=== PATIENT | male | born 1945 | race African-American/Black ===

== ENCOUNTER 2017-03-13 15:18 | Emergency (ER) | payer MEDICARE, OTHER ==
[~2017-03-13] VITALS: Ht 182.9 cm; Wt 83.0 kg
[~2017-03-13 15:18] MED LIST: ALLO100T PO; ALPR.5 PO; AMLO5 PO; BETH25 PO; BUSP5 PO; FURO20TA PO; LACT PO; LEVO.025 PO; MIRTA15 PO; OXCA600 PO; OXYB5TAB PO; POTA-243 PO; PROM1SUP12 PR; PROM25TA5 PO; PROS5TAB2 PO; PROT40TA PO; SERT-129 PO; TERA5CAP3 PO; ZOFR4TAB3 SL
[2017-03-13] MEDS ORDERED: SODIUM CHLOR 0.9% 1000 ML INJ 1,000 ML IV ONE ×2 (15:30)
[2017-03-13 15:45] VITALS: BP 119/88; PULSE 60; RESP 18; TEMP 98; O2SAT 93
--- NOTE | 2017-03-13 15:55 | RADRPT ---
EXAM DATE/TIME: 03/13/2017 15:25 [facility] COMPARISON: CT BRAIN W/O CONTRAST, July 13, 2014, 15:22. INDICATIONS : Fell off chair hit head laceration middle of head. RADIATION DOSE: 56.35 CTDIvol (mGy) MEDICAL HISTORY : Dementia. Seizures. Cardiovascular diseaseHypertension SURGICAL HISTORY : None. ENCOUNTER: Initial ACUITY: 1 day PAIN SCALE: 7/10 LOCATION: cranial TECHNIQUE: Multiple contiguous axial images were obtained of the head. Using automated exposure control and adj ustment of the mA and/or kV according to patient size, radiation dose was kept as low as reasonably a chievable to obtain optimal diagnostic quality images. DICOM format image data is available electro nically for review and comparison. FINDINGS: CEREBRUM: Diffuse moderate atrophic changes noted with sulcal and ventricular prominence. Periventricular white matter lucencies are present and advanced consistent chronic small vessel ischemic change. No eviden ce of midline shift, mass lesion, hemorrhage or acute infarction. No extra-axial fluid collections a re seen. POSTERIOR FOSSA: The cerebellum and brainstem are intact. The 4th ventricle is midline. The cerebellopontine angle i s unremarkable. The basilar artery remains prominent and tortuous. EXTRACRANIAL: The visualized portion of the orbits is intact. SKULL: The calvaria is intact. No evidence of skull fracture. CONCLUSION: 1. No acute hemorrhage or mass effect. 2. Atrophy and chronic small vessel ischemic changes. Vj Fraga MD on March 13, 2017 at 15:51 Board Certified Radiologist. This report was verified electronically.
[2017-03-13 15:57] VITALS: BP 114/77; PULSE 66; RESP 18; TEMP 98; O2SAT 94
[2017-03-13] MEDS ORDERED: ONDANSETRON HCL 4 MG/2 ML VIAL IV ONE (16:00)
--- NOTE | 2017-03-13 16:12 | RADRPT ---
EXAM DATE/TIME: 03/13/2017 15:29 [facility] COMPARISON: No previous studies available for comparison. INDICATIONS : Fell out of chair laceration middle of head RADIATION DOSE: 26.97 CTDIvol (mGy) MEDICAL HISTORY : Dementia. Seizures. Cardiovascular disease. Hypertension SURGICAL HISTORY : None. ENCOUNTER: Initial ACUITY: 1 day PAIN SCALE: 7/10 LOCATION: neck TECHNIQUE: Volumetric scanning of the cervical spine was performed. Multiplanar reconstructions i n the sagittal, coronal and oblique axial planes were performed. Using automated exposure control a nd adjustment of the mA and/or kV according to patient size, radiation dose was kept as low as reason ably achievable to obtain optimal diagnostic quality images. DICOM format image data is available e lectronically for review and comparison. FINDINGS: The sagittal reconstructions demonstrate normal alignment and normal prevertebral soft tissues. The d ens is intact and there is a normal atlantoaxial relationship. Degenerative disc changes are present greatest at the C5-6 and C6-7 levels. Degenerative changes are also noted in the atlantoaxial joint. The axial images demonstrate that the vertebral bodies and posterior elements are intact. The soft ti ssues are within normal limits. There is no evidence of acute fracture or malalignment. CONCLUSION: Negative trauma CT. Vj Fraga MD on March 13, 2017 at 16:08 Board Certified Radiologist. This report was verified electronically.
[2017-03-13 16:14] LABS: AUTOMATED NEUTROPHIL # 8.5 TH/MM3 (1.8-7.7); BASOPHIL # 0.1 TH/MM3 (0-0.2); BASOPHIL % 0.6 % (0.0-2.0); EOSINOPHIL # 0.2 TH/MM3 (0-0.4); EOSINOPHIL % 1.1 % (0.0-4.0); HEMATOCRIT 40.4 % (39.0-51.0); HEMO FLAGS AUTO DIFF; LYMPHOCYTE # 5.4 TH/MM3 (1.0-4.8); MEAN CELL VOLUME 88.2 FL (80.0-100.0); MEAN CORPUSCULAR HEMOGLOBIN 29.4 PG (27.0-34.0); MEAN CORPUSCULAR HGB CONC 33.4 % (32.0-36.0); MONO % 5.2 % (0.0-8.0); NEUT % 57.1 % (16.0-70.0); PLATELET COUNT 259 TH/MM3 (150-450); RED BLOOD COUNT 4.58 MIL/MM3 (4.50-5.90); WHITE BLOOD COUNT 14.9 TH/MM3 (4.0-11.0)
[2017-03-13 16:17] LABS: APTT (PATIENT) 22.5 SEC (24.3-30.1); PROTHROMBIN TIME - PATIENT 10.7 SEC (9.8-11.6)
[2017-03-13 16:22] LABS: ANION GAP 9 MEQ/L (5-15); AST (GOT) 9 U/L (15-37); BICARBONATE 24.8 MEQ/L (21.0-32.0); BLOOD UREA NITROGEN 9 MG/DL (7-18); CHLORIDE 106 MEQ/L (98-107); GLOMERULAR FILTRATION RATE 73 ML/MIN (>89); POTASSIUM 3.9 MEQ/L (3.5-5.1); SODIUM (NA) 140 MEQ/L (136-145)
--- NOTE | 2017-03-13 16:22 | RADRPT ---
EXAM DATE/TIME: 03/13/2017 15:55 [facility] COMPARISON: CHEST SINGLE AP, July 31, 2014, 9:13. INDICATIONS : Syncope. Patient fell and hit his head today. MEDICAL HISTORY : Dementia. Seizures. Cardiovascular disease. Hypertension SURGICAL HISTORY : None. ENCOUNTER: Initial ACUITY: 1 day PAIN SCORE: 0/10 LOCATION: Bilateral chest FINDINGS: A single view of the chest demonstrates the lungs to be symmetrically aerated without evidence of mas s, infiltrate or effusion. The cardiomediastinal contours are unremarkable. Osseous structures are intact. CONCLUSION: 1. No acute cardiopulmonary findings. Santhosh Delarosa MD on March 13, 2017 at 16:20 Board Certified Radiologist. This report was verified electronically.
[2017-03-13 16:24] LABS: ALT (GPT) 13 U/L (12-78)
[2017-03-13 16:27] LABS: ALKALINE PHOSPHATASE 58 U/L (45-117); TOTAL BILIRUBIN ADULT 0.2 MG/DL (0.2-1.0)
[2017-03-13] MEDS ORDERED: MORPHINE SULFATE 4 MG/ML INJ IV PUSH ONE (16:30)
--- NOTE | 2017-03-13 16:39 | PD ---
Physical Exam Date Seen by Provider: Mar 13, 2017 Time Seen by Provider: 16:38 Data Data Last Documented VS Vital Signs Date Time Temp Pulse Resp B/P (MAP) Pulse Ox O2 Delivery O2 Flow Rate FiO2 03/13/17 17:00 68 18 155/92 (113) 97 Room Air 03/13/17 15:[address] Brain W/O Iv Contrast(Rout) (03/13/17 ) Complete Blood Count With Diff (03/13/17 15:21) Comprehensive Metabolic Panel (03/13/17 15:21) Prothrombin Time / Inr (Pt) (03/13/17 15:21) Act Partial Throm Time (Ptt) (03/13/17 15:21) Lactic Acid Sepsis Protocol (03/13/17 15:21) Magnesium (Mg) (03/13/17 15:21) Lipase (03/13/17 15:21) Troponin I (03/13/17 15:) Urinalysis - C+S If Indicated (03/13/17 15:21) Blood Culture (03/13/17 15:21) Chest, Single Ap (03/13/17 15:21) Blood Glucose (03/13/17 15:21) Ecg Monitoring (03/13/17 15:21) Iv Access Insert/Monitor (03/13/17:) Oximetry (03/13/17 15:21) Oxygen Administration (03/13/17 15:21) Sodium Chlor 0.9% 1000 Ml Inj (Ns 1000 M (03/13/17 15:30) Sodium Chlor 0.9% 1000 Ml Inj (Ns 1000 M (03/13/17 15:30) Ct Cerv Spine W/O Contrast (03/13/17 ) Ondansetron Inj (Zofran Inj) (03/13/17 16:00) Morphine Inj (Morphine Inj) (03/13/17 16:30) Cath For Specimen (03/13/17 17:22) Lidocaine 1% Inj (50 Ml) (Xylocaine 1% I (03/13/17 17:30) Labs Laboratory Tests Test 03/13/17 15:25 03/13/17 15:55 White Blood Count 14.9 TH/MM3 Red Blood Count 4.58 MIL/MM3 Hemoglobin 13.5 GM/DL Hematocrit 40.4 % Mean Corpuscular Volume 88.2 FL Mean Corpuscular Hemoglobin 29.4 PG Mean Corpuscular Hemoglobin Concent 33.4 % Red Cell Distribution Width 14.0 % Platelet Count 259 TH/MM3 Mean Platelet Volume 7.7 FL Neutrophils (%) (Auto) 57.1 % Lymphocytes (%) (Auto) 36.0 % Monocytes (%) (Auto) 5.2 % Eosinophils (%) (Auto) 1.1 % Basophils (%) (Auto) 0.6 % Neutrophils # (Auto) 8.5 TH/MM3 Lymphocytes # (Auto) 5.4 TH/MM3 Monocytes # (Auto) 0.8 TH/MM3 Eosinophils # (Auto) 0.2 TH/MM3 Basophils # (Auto) 0.1 TH/MM3 CBC Comment AUTO DIFF Differential Total Cells Counted 100 Neutrophils % (Manual) 57 % Lymphocytes % 40 % Monocytes % 3 % Neutrophils # (Manual) 8.5 TH/MM3 Differential Comment FINAL DIFF MANUAL Platelet Estimate NORMAL Platelet Morphology Comment NORMAL Red Cell Morphology Comment NORMAL Prothrombin Time 10.7 SEC Prothromb Time International Ratio 1.0 RATIO Activated Partial Thromboplast Time 22.5 SEC Blood Urea Nitrogen 9 MG/DL Creatinine 1.20 MG/DL Random Glucose 145 MG/DL Total Protein 6.8 GM/DL Albumin 3.4 GM/DL Calcium Level 8.8 MG/DL Magnesium Level 2.0 MG/DL Alkaline Phosphatase 58 U/L Aspartate Amino Transf (AST/SGOT) 9 U/L Alanine Aminotransferase (ALT/SGPT) 13 U/L Total Bilirubin 0.2 MG/DL Sodium Level 140 MEQ/L Potassium Level 3.9 MEQ/L Chloride Level 106 MEQ/L Carbon Dioxide Level 24.8 MEQ/L Anion Gap 9 MEQ/L Estimat Glomerular Filtration Rate 73 ML/MIN Troponin I LESS THAN 0.02 NG/ML Lipase 171 U/L [facility] Supervised Visit with ABA: No Narrative Course I was asked to evaluate this patient's [-] laceration. The patient was initially seen by Dr. Carrington Please see her note for full H&P. On my exam [-]. Laceration repair was performed. Please see my procedure note for details. Dr. Carrington retains care of this patient. Please see her note for disposition. Procedures Procedure Narrative LACERATION LOCATION: [-] LENGTH: [-] NUMBER OF STITCHES/SHREYAS: [-] REPAIR: The area of the laceration was prepped with Betadine and sterilely draped. The laceration was infiltrated with [-]. The wound was copiously irrigated and explored without evidence of foreign body, tendon injury or neurovascular injury. The wound was closed using [-]. This was a [-] layer repair. A sterile dressing was applied. The patient was advised to keep the dressing clean and dry. Patient tolerated the procedure well. Daly Bill Mar 13, 2017 16:39
[2017-03-13 17:00] VITALS: BP 155/92; PULSE 68; RESP 18; O2SAT 97
[2017-03-13] MEDS ORDERED: TEGR200T PO ×2 (17:04)
[2017-03-13] MEDS ORDERED: ERYT250T13 PO (17:04)
[2017-03-13] MEDS ORDERED: PROS5TAB PO (17:04)
[2017-03-13] MEDS ORDERED: ALLO100 PO (17:04)
[2017-03-13] MEDS ORDERED: POTA-88 PO (17:04)
[2017-03-13] MEDS ORDERED: NORV2.5T PO (17:04)
[2017-03-13] MEDS ORDERED: ALPR.5 PO (17:04)
[2017-03-13] MEDS ORDERED: CLON.5 PO (17:04)
[2017-03-13] MEDS ORDERED: FURO1TAB62 PO (17:04)
[2017-03-13] MEDS ORDERED: LEVO25TA4 PO (17:05)
[2017-03-13] MEDS ORDERED: THERTAB17 PO (17:05)
[2017-03-13] MEDS ORDERED: ZOFR4TAB PO (17:05)
[2017-03-13] MEDS ORDERED: OMEP20TA PO (17:05)
[2017-03-13] MEDS ORDERED: MIRA25TA PO (17:05)
[2017-03-13] MEDS ORDERED: LISI-590 PO (17:05)
[2017-03-13] MEDS ORDERED: ZOLO100T PO (17:05)
[2017-03-13] MEDS ORDERED: REGL10TA5 PO (17:05)
[2017-03-13] MEDS ORDERED: SENN8.6T36 PO (17:05)
[2017-03-13 17:07] LABS: NEUTROPHIL # MANUAL DIFF 8.5 TH/MM3 (1.8-7.7); PLATELET ESTIMATE SMEAR NORMAL (NORMAL); PLATELET MORPHOLOGY NORMAL (NORMAL); POLYS (SEG NEUTROPHILS) 57 % (16-70); SCAN/DIFF FINAL DIFF MANUAL; WBC DIFF SAMPLE 100
[2017-03-13] MEDS ORDERED: LIDOCAINE HCL 1% 50 ML VIAL INFIL ONE (17:30)
[2017-03-13] MEDS ORDERED: LIDOCAINE 1%/EPINEPHrine 1:100,000 SOLN 50 ML VIAL ONE (17:41)
[2017-03-13] MEDS ORDERED: SODIUM CHLORID 0.9% 500 ML INJ 500 ML IV ONE (17:45)
[2017-03-13 18:30] VITALS: BP 147/89; PULSE 69; RESP 18; O2SAT 98
[2017-03-13 18:39] LABS: BLOOD, URINE NEG (NEG); GLUCOSE,URINE NEG (NEG); KETONE, URINE NEG (NEG); NITRITE,URINE NEG (NEG); URINE COLOR LIGHT-YELLOW (YELLW/STRAW)
[2017-03-13 18:40] LABS: COMMENT (UR) CATH-CULT NOT IND; CULTURE IF INDICATED CATH CULTURE NOT IND
--- NOTE | 2017-03-13 18:41 | PD ---
HPI Chief Complaint: Fall Time Seen by Provider: 15:31 Travel History International Travel<30 days: No Contact w/Intl Traveler<30days: No Traveled to known affect area: No History of Present Illness HPI This is a 71-year-old male who presents to the emergency department having fallen forward out of his wheelchair at his long-term. Here in the emergency department he had an episode of vomiting and he has evidence of a head laceration. The patient is unable to provide any history. PFSH Past Medical History Arthritis: No Asthma: No Autoimmune Disease: No Blood Disorders: No Anxiety: Yes Depression: Yes Heart Rhythm Problems: No Cancer: No Cardiovascular Problems: Yes High Cholesterol: Yes Chemotherapy: No Chest Pain: No Congestive Heart Failure: No COPD: No Cerebrovascular Accident: No Dementia: Yes Diabetes: No Diminished Hearing: No Endocrine: No GERD: No Glaucoma: No Gout: Yes Genitourinary: Yes Headaches: No Hepatitis: No Hiatal Hernia: No Hypertension: Yes Immune Disorder: No Kidney Stones: No Musculoskeletal: No Neurologic: Yes Psychiatric: Yes (PTSD) Reproductive: No Respiratory: Yes Migraines: No Myocardial Infarction: No Radiation Therapy: No Renal Failure: No Seizures: Yes Sickle Cell Disease: No Sleep Apnea: No Thyroid Disease: No Ulcer: No Tetanus Vaccination: < 5 Years Influenza Vaccination: Yes ?: Not Past Surgical History Abdominal Surgery: No AICD: No Appendectomy: No Arteriovenous Shunt: No Cardiac Surgery: No Cholecystectomy: No Ear Surgery: No Endocrine Surgery: No Eye Surgery: No Genitourinary Surgery: Yes (prostate surgery) Gynecologic Surgery: No Insulin Pump: No Joint Replacement: No Oral Surgery: No Pacemaker: No Thoracic Surgery: No Other Surgery: Yes Social History Alcohol Use: No Tobacco Use: No Substance Use: No Allergies-Medications (Allergen,Severity, Reaction): Coded Allergies: *MDRO Multi-Drug Resistant Organism (Unverified Adverse Reaction, Unknown , 08/18/14) MDR Pseudomonas urine. Reported Meds & Prescriptions Reported Meds & Active Scripts Active Reported Thera-M (Multiple Vitamins W/ Minerals) 1 Tab 1 Tab PO DAILY Zoloft (Sertraline HCl) 100 Mg Tab 100 Mg PO DAILY Senna-Tabs (Sennosides) 8.6 Mg Tab 17.2 Mg PO BID Zofran (Ondansetron HCl) 4 Mg Tab 4 Mg PO Q8HR PRN Omeprazole 20 Mg Tab 40 Mg PO DAILY Myrbetriq (Mirabegron) 25 Mg Tab 25 Mg PO DAILY Reglan (Metoclopramide HCl) 10 Mg Tab 10 Mg PO QID Before meals and at bedtime Zestril (Lisinopril) 10 Mg Tab 10 Mg PO DAILY Levothyroxine (Levothyroxine Sodium) 25 Mcg Tab 25 Mcg PO DAILY Klor-Con M10 (Potassium Chloride Microencaps) 10 Meq Tab 10 Meq PO DAILY Lasix (Furosemide) 20 Mg Tab 20 Mg PO DAILY Proscar (Finasteride) 5 Mg Tab 5 Mg PO DAILY Do not crush. Erythromycin Base 250 Mg Tab 250 Mg PO QID Take before meals and at bedtime Klonopin (Clonazepam) 0.5 Mg Tab 0.5 Mg PO BID PRN Tegretol (Carbamazepine) 200 Mg Tab 400 Mg PO DAILY IN THE AM Tegretol (Carbamazepine) 200 Mg Tab 200 Mg PO BID Norvasc (Amlodipine Besylate) 2.5 Mg Tab 2.5 Mg PO DAILY Xanax (Alprazolam) 0.5 Mg Tab 0.5 Mg PO Q8H PRN Zyloprim (Allopurinol) 100 Mg Tab 200 Mg PO DAILY Review of Systems ROS Limitations: Poor Historian Physical Exam Narrative GENERAL:Well appearing, no acute distress SKIN: Large laceration across the forehead HEAD: Atraumatic. Normocephalic. EYES: Pupils equal and round. No injection or drainage. ENT: Moist mucous membranes NECK: Trachea midline. CARDIOVASCULAR: Regular rate and rhythm. No murmur appreciated. RESPIRATORY: Clear to auscultation. Breath sounds equal bilaterally. GASTROINTESTINAL: Abdomen soft, non-tender, nondistended. MUSCULOSKELETAL: No obvious deformities. NEUROLOGICAL: Confused, oriented to person but not place or time. No obvious cranial nerve deficits. Moving all extremities. PSYCHIATRIC: Poor insight and judgment. Data Data Last Documented VS Vital Signs Date Time Temp Pulse Resp B/P (MAP) Pulse Ox O2 Delivery O2 Flow Rate FiO2 03/13/17 18:30 69 18 147/89 (108) 98 Room Air 03/13/17 15:[address] Brain W/O Iv Contrast(Rout) (03/13/17 ) Complete Blood Count With Diff (03/13/17 15:21) Comprehensive Metabolic Panel (03/13/17 15:21) Prothrombin Time / Inr (Pt) (03/13/17 15:21) Act Partial Throm Time (Ptt) (03/13/17 15:21) Lactic Acid Sepsis Protocol (03/13/17 15:21) Magnesium (Mg) (03/13/17 15:21) Lipase (03/13/17 15:21) Troponin I (03/13/17 15:21) Urinalysis - C+S If Indicated (03/13/17 15:21) Blood Culture (03/13/17 15:21) Chest, Single Ap (03/13/17 15:21) Blood Glucose (03/13/17 15:21) Ecg Monitoring (03/13/17 15:) Iv Access Insert/Monitor (03/13/17 15:21) Oximetry (03/13/17 15:21) Oxygen Administration (03/13/17 15:21) Sodium Chlor 0.9% 1000 Ml Inj (Ns 1000 M (03/13/17 15:30) Sodium Chlor 0.9% 1000 Ml Inj (Ns 1000 M (03/13/17 15:30) Ct Cerv Spine W/O Contrast (03/13/17 ) Ondansetron Inj (Zofran Inj) (03/13/17 16:00) Morphine Inj (Morphine Inj) (03/13/17 16:30) Cath For Specimen (03/13/17 17:22) Lidocaine 1% Inj (50 Ml) (Xylocaine 1% I (03/13/17 17:30) Sodium Chlorid 0.9% 500 Ml Inj (Ns 500 M (03/13/17 17:45) Lidocai-Epi 1%-1:100,000 Inj (Xylocaine- (03/13/17 17:41) Labs Laboratory Tests Test 03/13/17 15:25 03/13/17 15:55 03/13/17 17:45 White Blood Count 14.9 TH/MM3 Red Blood Count 4.58 MIL/MM3 Hemoglobin 13.5 GM/DL Hematocrit 40.4 % Mean Corpuscular Volume 88.2 FL Mean Corpuscular Hemoglobin 29.4 PG Mean Corpuscular Hemoglobin Concent 33.4 % Red Cell Distribution Width 14.0 % Platelet Count 259 TH/MM3 Mean Platelet Volume 7.7 FL Neutrophils (%) (Auto) 57.1 % Lymphocytes (%) (Auto) 36.0 % Monocytes (%) (Auto) 5.2 % Eosinophils (%) (Auto) 1.1 % Basophils (%) (Auto) 0.6 % Neutrophils # (Auto) 8.5 TH/MM3 Lymphocytes # (Auto) 5.4 TH/MM3 Monocytes # (Auto) 0.8 TH/MM3 Eosinophils # (Auto) 0.2 TH/MM3 Basophils # (Auto) 0.1 TH/MM3 CBC Comment AUTO DIFF Differential Total Cells Counted 100 Neutrophils % (Manual) 57 % Lymphocytes % 40 % Monocytes % 3 % Neutrophils # (Manual) 8.5 TH/MM3 Differential Comment FINAL DIFF MANUAL Platelet Estimate NORMAL Platelet Morphology Comment NORMAL Red Cell Morphology Comment NORMAL Prothrombin Time 10.7 SEC Prothromb Time International Ratio 1.0 RATIO Activated Partial Thromboplast Time 22.5 SEC Blood Urea Nitrogen 9 MG/DL Creatinine 1.20 MG/DL Random Glucose 145 MG/DL Total Protein 6.8 GM/DL Albumin 3.4 GM/DL Calcium Level 8.8 MG/DL Magnesium Level 2.0 MG/DL Alkaline Phosphatase 58 U/L Aspartate Amino Transf (AST/SGOT) 9 U/L Alanine Aminotransferase (ALT/SGPT) 13 U/L Total Bilirubin 0.2 MG/DL Sodium Level 140 MEQ/L Potassium Level 3.9 MEQ/L Chloride Level 106 MEQ/L Carbon Dioxide Level 24.8 MEQ/L Anion Gap 9 MEQ/L Estimat Glomerular Filtration Rate 73 ML/MIN Troponin I LESS THAN 0.02 NG/ML Lipase 171 U/L Lactic Acid Level 2.5 mmol/L Urine Color LIGHT-YELLOW Urine Turbidity CLEAR Urine pH 7.0 Urine Specific [place] 1.004 Urine Protein NEG mg/dL Urine Glucose (UA) NEG mg/dL Urine Ketones NEG mg/dL Urine Occult Blood NEG Urine Nitrite NEG Urine Bilirubin NEG Urine Urobilinogen LESS THAN 2.0 MG/DL Urine Leukocyte Esterase NEG Urine RBC LESS THAN 1 /hpf Urine WBC 1 /hpf Microscopic Urinalysis Comment CATH-CULT NOT IND MDM Medical Decision Making Medical Screen Exam Complete: Yes Emergency Medical Condition: Yes Interpretation(s) Afebrile, no tachycardia, normotensive Leukocytosis 57% neutrophils Electrolytes are reassuring Lactic acid is 2.5 Troponin is normal Lipase is normal Last 24 hours Impressions Chest X-Ray 03/13/17 1521 Signed Impressions: Service Date/Time: Monday, March 13, 2017 15:55 - CONCLUSION: 1. No acute cardiopulmonary findings. Santhosh Delarosa MD Head CT 03/13/17 0000 Signed Impressions: Service Date/Time: Monday, March 13, 2017 15:25 - CONCLUSION: 1. No acute hemorrhage or mass effect. 2. Atrophy and chronic small vessel ischemic changes. Vj Fraga MD Cervical Spine CT 03/13/17 0000 Signed Impressions: Service Date/Time: Monday, March 13, 2017 15:29 - CONCLUSION: Negative trauma CT. Vj Fraga MD Differential Diagnosis Intracranial hemorrhage, cervical spine fracture, concussion, subdural hematoma , epidural hematoma, sepsis Narrative Course This is a 71-year-old male who presents to the emergency department having fallen forward out of his wheelchair. There is a question that he is on blood thinners although I don't see any on his medication list. CT of the head and cervical spine are reassuring. Patient does have a leukocytosis which I suspect is a stress response in the setting of is closed head injury as he otherwise has no fever or tachycardia and his neutrophil percentage is normal. Chest x-ray urinalysis were obtained which were reassuring. Patient's laceration was repaired. I think he can be discharged home. Diagnosis Primary Impression: Closed head injury Qualified Codes: S09.90XA - Unspecified injury of head, initial encounter Additional Impression: Laceration of head Qualified Codes: S01.91XA - Laceration without foreign body of unspecified part of head, initial encounter Patient Instructions: General Instructions Additional Instructions: If you develop fevers, redness, swelling, or discharge from your wound return to the emergency room. Keep your wound dry for 24 hours. After that time, wash gently with warm soap and water. Do not use peroxide. Do not soak in baths or go swimming. Have your sutures removed in 5 days. Med/Other Pt SpecificInfo: No Change to Meds Disposition: 01 DISCHARGE HOME Condition: Stable Farnaz Carrington MD Mar 13, 2017 18:41
[2017-03-13 18:59] LABS: LACTIC ACID GHOST NOT REPORTABLE
--- NOTE | 2017-03-13 19:07 | PD ---
Physical Exam Date Seen by Provider: Mar 13, 2017 Time Seen by Provider: 19:00 Data Data Last Documented VS Vital Signs Date Time Temp Pulse Resp B/P (MAP) Pulse Ox O2 Delivery O2 Flow Rate FiO2 03/13/17 18:30 69 18 147/89 (108) 98 Room Air 03/13/17 15:[address] Brain W/O Iv Contrast(Rout) (03/13/17 ) Complete Blood Count With Diff (03/13/17 15:21) Comprehensive Metabolic Panel (03/13/17 15:21) Prothrombin Time / Inr (Pt) (03/13/17 15:21) Act Partial Throm Time (Ptt) (03/13/17 15:21) Lactic Acid Sepsis Protocol (03/13/17 15:21) Magnesium (Mg) (03/13/17 15:21) Lipase (03/13/17 15:21) Troponin I (03/13/17 15:21) Urinalysis - C+S If Indicated (03/13/17 15:21) Blood Culture (03/13/17 15:21) Chest, Single Ap (03/13/17 15:21) Blood Glucose (03/13/17 15:21) Ecg Monitoring (03/13/17 15:21) Iv Access Insert/Monitor (03/13/17 15:21) Oximetry (03/13/17 15:21) Oxygen Administration (03/13/17 15:21) Sodium Chlor 0.9% 1000 Ml Inj (Ns 1000 M (03/13/17 15:30) Sodium Chlor 0.9% 1000 Ml Inj (Ns 1000 M (03/13/17 15:30) Ct Cerv Spine W/O Contrast (03/13/17 ) Ondansetron Inj (Zofran Inj) (03/13/17 16:00) Morphine Inj (Morphine Inj) (03/13/17 16:30) Cath For Specimen (03/13/17 17:22) Lidocaine 1% Inj (50 Ml) (Xylocaine 1% I (03/13/17 17:30) Sodium Chlorid 0.9% 500 Ml Inj (Ns 500 M (03/13/17 17:45) Lidocai-Epi 1%-1:100,000 Inj (Xylocaine- (03/13/17 17:41) Labs Laboratory Tests Test 03/13/17 15:25 03/13/17 15:55 03/13/17 17:45 White Blood Count 14.9 TH/MM3 Red Blood Count 4.58 MIL/MM3 Hemoglobin 13.5 GM/DL Hematocrit 40.4 % Mean Corpuscular Volume 88.2 FL Mean Corpuscular Hemoglobin 29.4 PG Mean Corpuscular Hemoglobin Concent 33.4 % Red Cell Distribution Width 14.0 % Platelet Count 259 TH/MM3 Mean Platelet Volume 7.7 FL Neutrophils (%) (Auto) 57.1 % Lymphocytes (%) (Auto) 36.0 % Monocytes (%) (Auto) 5.2 % Eosinophils (%) (Auto) 1.1 % Basophils (%) (Auto) 0.6 % Neutrophils # (Auto) 8.5 TH/MM3 Lymphocytes # (Auto) 5.4 TH/MM3 Monocytes # (Auto) 0.8 TH/MM3 Eosinophils # (Auto) 0.2 TH/MM3 Basophils # (Auto) 0.1 TH/MM3 CBC Comment AUTO DIFF Differential Total Cells Counted 100 Neutrophils % (Manual) 57 % Lymphocytes % 40 % Monocytes % 3 % Neutrophils # (Manual) 8.5 TH/MM3 Differential Comment FINAL DIFF MANUAL Platelet Estimate NORMAL Platelet Morphology Comment NORMAL Red Cell Morphology Comment NORMAL Prothrombin Time 10.7 SEC Prothromb Time International Ratio 1.0 RATIO Activated Partial Thromboplast Time 22.5 SEC Blood Urea Nitrogen 9 MG/DL Creatinine 1.20 MG/DL Random Glucose 145 MG/DL Total Protein 6.8 GM/DL Albumin 3.4 GM/DL Calcium Level 8.8 MG/DL Magnesium Level 2.0 MG/DL Alkaline Phosphatase 58 U/L Aspartate Amino Transf (AST/SGOT) 9 U/L Alanine Aminotransferase (ALT/SGPT) 13 U/L Total Bilirubin 0.2 MG/DL Sodium Level 140 MEQ/L Potassium Level 3.9 MEQ/L Chloride Level 106 MEQ/L Carbon Dioxide Level 24.8 MEQ/L Anion Gap 9 MEQ/L Estimat Glomerular Filtration Rate 73 ML/MIN Troponin I LESS THAN 0.02 NG/ML Lipase 171 U/L Lactic Acid Level 2.5 mmol/L Urine Color LIGHT-YELLOW Urine Turbidity CLEAR Urine pH 7.0 Urine Specific [place] 1.004 Urine Protein NEG mg/dL Urine Glucose (UA) NEG mg/dL Urine Ketones NEG mg/dL Urine Occult Blood NEG Urine Nitrite NEG Urine Bilirubin NEG Urine Urobilinogen LESS THAN 2.0 MG/DL Urine Leukocyte Esterase NEG Urine RBC LESS THAN 1 /hpf Urine WBC 1 /hpf Microscopic Urinalysis Comment CATH-CULT NOT IND MDM Medical Record Reviewed: Yes Supervised Visit with ABA: Yes Narrative Course I was asked by the provider to repair the facial lacerations. Upon assessment of the patient there is noted a medial nasal laceration of 3 cm and a horizontal midline forehead laceration of 7 cm. Patient is alert and cooperative. Please see my procedures narrative for laceration repair. Dr. Carrington retains care of this patient. Please see her documentation for final disposition. Procedures Procedure Narrative LACERATION LOCATION: Midline forehead LENGTH: 7 cm NUMBER OF STITCHES/SHREYAS: 13 sutures REPAIR: The area of the laceration was prepped with Betadine and sterilely draped. The laceration was infiltrated with 1% lidocaine. The wound was copiously irrigated and explored without evidence of foreign body, tendon injury or neurovascular injury. The wound was closed using 4. 0 Prolene. This was a single layer repair. A sterile dressing was applied. The patient was advised to keep the dressing clean and dry. Patient tolerated the procedure well. LACERATION LOCATION: Medial nasal LENGTH: 3 cm NUMBER OF STITCHES/SHREYAS: 6 sutures REPAIR: The area of the laceration was prepped with Betadine and sterilely draped. The laceration was infiltrated with 1% lidocaine. The wound was copiously irrigated and explored without evidence of foreign body, tendon injury or neurovascular injury. The wound was closed using 4. 0 Prolene. This was a single layer repair. A sterile dressing was applied. The patient was advised to keep the dressing clean and dry. Patient tolerated the procedure well. Diagnosis Primary Impression: Closed head injury Qualified Codes: S09.90XA - Unspecified injury of head, initial encounter Additional Impression: Laceration of head Qualified Codes: S01.91XA - Laceration without foreign body of unspecified part of head, initial encounter Patient Instructions: General Instructions Additional Instruction: If you develop fevers, redness, swelling, or discharge from your wound return to the emergency room. Keep your wound dry for 24 hours. After that time, wash gently with warm soap and water. Do not use peroxide. Do not soak in baths or go swimming. Have your sutures removed in 5 days. Disposition: 01 DISCHARGE HOME Condition: Stable Monae Taylor Mar 13, 2017 19:06
== END 2017-03-13 20:29 | disposition home or self-care (01) ==
LOC: NEPC 15:18 → NEDAMB 20:29
DX: S09.90XA Unspecified injury of head, initial encounter (principal); S01.21XA Laceration without foreign body of nose, initial encounter; S01.81XA Laceration without foreign body of other part of head, initial encounter; B95.7 Other staphylococcus as the cause of diseases classified elsewhere; D72.829 Elevated white blood cell count, unspecified; F03.90 Unspecified dementia, unspecified severity, without behavioral disturbance, psychotic disturbance, mood disturbance, and anxiety; I10 Essential (primary) hypertension; W05.0XXA Fall from non-moving wheelchair, initial encounter; Y92.129 Unspecified place in nursing home as the place of occurrence of the external cause
CPT/HCPCS: 12015; 70450; 71010; 72125; 80053; 81001; 83605; 83690; 83735; 84484; 85007; 85027; 85610; 85730; 86403; 87040; 87077; 87186; 87205; 96361; 96374; 99285; J2270; J2405; J7030; J7040; P9612

== ENCOUNTER 2018-03-11 23:43 | Inpatient (IN) ==
[2018-03-12 00:44] LABS: Baso # (Auto) 0.1 th/mm3 (0.0-0.2); Baso % (Auto) 0.4 % (0.0-2.0); Eos # (Auto) 0.1 th/mm3 (0.0-0.4); Eos % (Auto) 0.6 % (0.0-4.0); Hematocrit 42.9 % (39.0-51.0); Lymph # (Auto) 1.7 th/mm3 (1.0-4.8); Lymph % (Auto) 12.6 % (9.0-44.0); Mean Corpuscular HGB Conc 32.6 % (32.0-36.0); Mean Corpuscular Hemoglobin 29.2 pg (27.0-34.0); Mean Corpuscular Volume 89.4 fL (80.0-100.0); Mean Platelet Volume 7.7 fL (7.0-11.0); Mono # (Auto) 0.6 th/mm3 (0.0-0.9); Mono % (Auto) 4.9 % (0.0-8.0); Neut # (Auto) 10.7 th/mm3 (1.8-7.7); Neut % (Auto) 81.5 % (16.0-70.0); Platelet Count 249 th/mm3 (150-450); Red Cell Distribution Width 14.5 % (11.6-17.2); White Blood Count 13.1 th/mm3 (4.0-11.0)
[2018-03-12 00:53] LABS: Albumin 3.3 g/dL (3.4-5.0); Anion Gap 5 meq/L (5-15); Blood Urea Nitrogen 12 mg/dL (7-18); Calcium 8.5 mg/dL (8.5-10.1); Carbon Dioxide 31.7 meq/L (21.0-32.0); Chloride 107 meq/L (98-107); Glucose,Random 114 mg/dL (74-106); Potassium 3.4 meq/L (3.5-5.1); Sodium 144 meq/L (136-145)
[2018-03-12 00:57] LABS: Alanine Aminotransferase 15 U/L (12-78); Alkaline Phosphatase 59 U/L (45-117); Aspartate Aminotransferase 8 U/L (15-37); Glomerular Filtration Rate Greater Than 89 mL/min (>89)
[2018-03-12 01:03] LABS: Bilirubin,Urine Negative (Negative); Clarity,Urine Hazy (Clear); Color,Urine Yellow (Yellw/Straw); Glucose,Urine (UA) Negative (Negative); Hyaline Casts,Urine 1 /lpf (0-3); Leukocyte Esterase,Urine Trace (Negative); Mucus,Urine Few /lpf (Occasional); Nitrite,Urine Negative (Negative); Specific Gravity,Urine 1.015 (1.002-1.035); Squamous Epithelial Cell,Urine 1 /hpf (0-5)
[2018-03-12] MEDS ORDERED: Naloxone Inj 0.4 MG/ML Vial IV.PUSH ONE (01:11)
--- NOTE | 2018-03-12 01:52 | XR ---
EXAM DATE: 03/12/2018 1:39 AM EDT AGE/SEX: 72 years / Male INDICATIONS: Asthma. CLINICAL DATA: This is the patient's initial encounter. Patient reports that signs and symptoms have been present for 1 day and indicates a pain score of Nonresponsive. MEDICAL/SURGICAL HISTORY: . Dementia. Seizures. Cardiovascular disease. Hypertension Non-resp onsive. [place] [facility] [place]. . FINDINGS: Heart size enlarged. Mildly tortuous aorta. Basilar density most characteristic of atelectasis. [employer] [place] right hemidiaphragm. No pneumothorax. CONCLUSION: Cardiomegaly. Mild basilar atelectasis. No significant effusion. Electronically signed by: Bartolo Reeder MD 03/12/2018 1:51 AM EDT
--- NOTE | 2018-03-12 05:21 | ED ---
HPI General Chief Complaint: Altered Mental Status Stated Complaint: medical Time Seen by Provider: 03/11/18 23:48 History of Present Illness HPI narrative: Patient is a 72-year-old male from a alf he bedbound lower extremity paralysis he has a history of seizures he is on Seroquel for sleep apparently they found him tonight to be altered very lethargic minimally responsive and is called the paramedics paramedics arrived he was more altered but the time they get to the ER here he is a GCS of 10 opening his eyes saying no to most of my questions but seems to comprehend patient's vitals are mildly hypertensive with no other complaints at this time he is limiting his HPI and ROS due to the fact that he is minimally verbal may be his baseline may be demented it is unclear from the transfer from the paramedics he is not tachycardic is not febrile 99 as his oral temp and his heart rate is 90 Related Data Home Medications Medication Instructions Recorded Confirmed allopurinol 200 mg PO DAILY 03/12/18 03/12/18 alprazolam 1 mg PO Q8HR 03/12/18 03/12/18 amlodipine 2.5 mg PO DAILY 03/12/18 03/12/18 carbamazepine 400 mg PO TID 03/12/18 03/12/18 clomipramine [Anafranil] 25 mg PO HS 03/12/18 03/12/18 erythromycin 250 mg PO Q12H 03/12/18 03/12/18 finasteride 5 mg PO DAILY 03/12/18 03/12/18 furosemide 20 mg PO DAILY 03/12/18 03/12/18 levothyroxine 25 mcg PO DAILY 03/12/18 03/12/18 lisinopril 10 mg PO DAILY 03/12/18 03/12/18 metoclopramide HCl 10 mg PO QID 03/12/18 03/12/18 multivitamin,hq-csvg-axumwgdu 1 tab PO DAILY 03/12/18 03/12/18 [Thera-M] omeprazole 40 mg PO DAILY 03/12/18 03/12/18 ondansetron 4 mg PO TID PRN 03/12/18 03/12/18 potassium chloride [Klor-Con 10] 1 tab PO DAILY 03/12/18 03/12/18 quetiapine [Seroquel] 50 mg PO HS 03/12/18 03/12/18 sennosides-docusate sodium [Senna 1 tab PO BID PRN 03/12/18 03/12/18 with Docusate Sodium] sertraline 100 mg PO DAILY 03/12/18 03/12/18 Previous Rx's Medication Instructions Recorded clopidogrel [Plavix] 75 mg PO DAILY #30 tab 03/15/18 Allergies Allergy/AdvReac Type Severity Reaction Status Date / Time propoxyphene Allergy Severe Hives Verified 03/12/18 00:07 *MDRO Multi-Drug Resistant AdvReac Unknown Rash Uncoded 03/12/18 00:07 Organism Review of Systems ROS Unobtainable ROS Unobtainable: unobtainable due to mental condition (minimal verbal possible dementia advanced) [facility] Social History Social History Substance History: No History of Abuse Second Hand Smoke Exposure: No Smoking Status: Never smoker How Often Do You Have a Drink Containing Alcohol: Never Immunization History Tetanus Immunization: Unable to Assess Hx Influenza Vaccine This Season: Unable to Assess Exam Narrative Exam Narrative: GENERAL: pt awake diaphoretic , responds to verbal command to open eyes > responds slowly " No" to all my questions SKIN: Warm and dry. HEAD: Atraumatic. Normocephalic. EYES: Pupils equal and round. No scleral icterus. No injection or drainage. ENT: No nasal bleeding or discharge. Mucous membranes pink and moist. NECK: Trachea midline. No JVD. CARDIOVASCULAR: Regular rate and rhythm. RESPIRATORY: No accessory muscle use. Clear to auscultation. Breath sounds equal bilaterally. GASTROINTESTINAL: Abdomen soft, non-tender, nondistended. Hepatic and splenic margins not palpable. MUSCULOSKELETAL: Extremities Lower extremities slightly contracted no edema no obvious deformities. NEUROLOGICAL: Awake and alert. No obvious cranial nerve deficits. Motor grossly within normal limits. Five out of 5 muscle strength in the arms and legs. minimally PSYCHIATRIC: awake Course Initial Documented Vital Signs Temperature 99 F 03/11/18 23:47 Pulse Rate 96 H 03/11/18 23:47 Respiratory Rate 18 03/11/18 23:47 Blood Pressure 186/138 H 03/11/18 23:47 Pulse Oximetry 90 L 03/11/18 23:47 Last Documented Vital Signs Temperature 97.6 F 03/15/18 15:58 Pulse Rate 67 03/15/18 15:58 Respiratory Rate 12 03/15/18 15:58 Blood Pressure 153/89 H 03/15/18 15:58 Pulse Oximetry 98 03/15/18 15:58 Medical Decision Making MDM Narrative Medical decision making narrative: labs urine and CT all evaluated and pt admit for further eval no obvious reason for reported AMDS at [place] Medical Screen Exam Complete: Yes Emergency Medical Condition: Yes Differential Diagnosis Differential Diagnosis: seizure and post ictal vs septic vs CVA vs cardiac arrhythmia vs urosepsis vs other causes of AMS possible at baseline of dementia advanced does not appear delirium Lab Data Result diagrams: 03/13/18 06:16 03/13/18 06:16 Lab Results 03/12/18 03/12/18 03/12/18 Range/Units 00:25 00:25 00:25 WBC 13.1 H (4.0-11.0) th/mm3 RBC 4.80 (4.50-5.90) mil/mm3 Hgb 14.0 (13.0-17.0) gm/dL Hct 42.9 (39.0-51.0) % MCV 89.4 (80.0-100.0) fL MCH 29.2 (27.0-34.0) pg MCHC 32.6 (32.0-36.0) % RDW 14.5 (11.6-17.2) % Plt Count 249 (150-450) th/mm3 MPV 7.7 (7.0-11.0) fL Neut % (Auto) 81.5 H (16.0-70.0) % Lymph % (Auto) 12.6 (9.0-44.0) % [place] % (Auto) 4.9 (0.0-8.0) % Eos % (Auto) 0.6 (0.0-4.0) % Baso % (Auto) 0.4 (0.0-2.0) % Neut # (Auto) 10.7 H (1.8-7.7) th/mm3 Lymph # (Auto) 1.7 (1.0-4.8) th/mm3 [place] # (Auto) 0.6 (0.0-0.9) th/mm3 Eos # (Auto) 0.1 (0.0-0.4) th/mm3 Baso # (Auto) 0.1 (0.0-0.2) th/mm3 WBC Differential . Differential Comment Auto diff final ESR (0-20) mm/hr Sodium 144 (136-145) meq/L Potassium 3.4 L (3.5-5.1) meq/L Chloride 107 (98-107) meq/L Carbon Dioxide 31.7 (21.0-32.0) meq/L Anion Gap 5 (5-15) meq/L BUN 12 (7-18) mg/dL Creatinine 0.87 (0.60-1.30) mg/dL Estimated GFR Greater than 89 (>89) mL/min Random Glucose 114 H (74-106) mg/dL Lactic Acid 0.9 (0.4-2.0) mmol/L Calcium 8.5 (8.5-10.1) mg/dL Total Bilirubin 0.3 (0.2-1.0) mg/dL AST 8 L (15-37) U/L ALT 15 (12-78) U/L Alkaline Phosphatase 59 (45-117) U/L Troponin I Less than 0.02 L (0.02-0.05) ng/mL Total Protein 7.0 (6.4-8.2) g/dL Total Protein (PEP) (6.4-8.2) gm/dL Albumin 3.3 L (3.4-5.0) g/dL Albumin (PEP) (3.50-5.00) gm/dL Albumin/Globulin Ratio (1.39-2.23) Tnzfl-4-Qyiwoyhzo (0.11-0.29) gm/dL Qmcod-1-Bblbrcpzc (0.22-1.00) gm/dL Beta Globulins (0.53-1.03) gm/dL Gamma Globulins (0.50-1.39) gm/dL PEP Pathologist Comment Triglycerides (42-150) mg/dL Cholesterol (120-200) mg/dL LDL Cholesterol, Calc (0-99) mg/dL HDL Cholesterol (40.0-60.0) mg/dL Cholesterol/HDL Ratio Ratio Vitamin B12 (193-986) pg/mL Methylmalonic Acid (<=0.40) nmol/mL TSH (0.358-3.740) uIU/mL Free T4 (0.76-1.46) ng/dL Urine Color (Yellw/Straw) Urine Clarity (Clear) Urine pH (5.0-8.5) Ur Specific [place] (1.002-1.035) Urine Protein (Neg-Trace) mg/dL Urine Glucose (UA) (Negative) mg/dL Urine Ketones (Negative) mg/dL Urine Occult Blood (Negative) Urine Nitrate (Negative) Urine Bilirubin (Negative) Urine Urobilinogen (Less than 2) mg/dL Ur Leukocyte Esterase (Negative) Urine RBC (0-3) /hpf Urine WBC (0-5) /hpf Ur Squamous Epith Cells (0-5) /hpf Hyaline Casts (0-3) /lpf Urine Mucus (Occasional) /lpf Micro UA Comment Ur Microscopic Review Urine Culture Comments Carbamazepine (4.0-12.0) mcg/mL ARCHIE Screen (Neg) RPR (Nonreactive) 03/12/18 03/12/18 03/13/18 Range/Units 00:25 00:50 06:16 WBC 7.0 (4.0-11.0) th/mm3 RBC 4.46 L (4.50-5.90) mil/mm3 Hgb 12.8 L (13.0-17.0) gm/dL Hct 40.3 (39.0-51.0) % MCV 90.2 (80.0-100.0) fL MCH 28.8 (27.0-34.0) pg MCHC 31.9 L (32.0-36.0) % RDW 14.1 (11.6-17.2) % Plt Count 229 (150-450) th/mm3 MPV 7.8 (7.0-11.0) fL Neut % (Auto) 65.5 (16.0-70.0) % Lymph % (Auto) 24.6 (9.0-44.0) % [place] % (Auto) 7.8 (0.0-8.0) % Eos % (Auto) 1.4 (0.0-4.0) % Baso % (Auto) 0.7 (0.0-2.0) % Neut # (Auto) 4.6 (1.8-7.7) th/mm3 Lymph # (Auto) 1.7 (1.0-4.8) th/mm3 [place] # (Auto) 0.5 (0.0-0.9) th/mm3 Eos # (Auto) 0.1 (0.0-0.4) th/mm3 Baso # (Auto) 0.0 (0.0-0.2) th/mm3 WBC Differential . Differential Comment Auto diff final ESR (0-20) mm/hr Sodium (136-145) meq/L Potassium (3.5-5.1) meq/L Chloride (98-107) meq/L Carbon Dioxide (21.0-32.0) meq/L Anion Gap (5-15) meq/L BUN (7-18) mg/dL Creatinine (0.60-1.30) mg/dL Estimated GFR (>89) mL/min Random Glucose (74-106) mg/dL Lactic Acid (0.4-2.0) mmol/L Calcium (8.5-10.1) mg/dL Total Bilirubin (0.2-1.0) mg/dL AST (15-37) U/L ALT (12-78) U/L Alkaline Phosphatase (45-117) U/L Troponin I (0.02-0.05) ng/mL Total Protein (6.4-8.2) g/dL Total Protein (PEP) (6.4-8.2) gm/dL Albumin (3.4-5.0) g/dL Albumin (PEP) (3.50-5.00) gm/dL Albumin/Globulin Ratio (1.39-2.23) Gbfec-0-Fhwbjjdsy (0.11-0.29) gm/dL Ppfyo-7-Jnylxmdha (0.22-1.00) gm/dL Beta Globulins (0.53-1.03) gm/dL Gamma Globulins (0.50-1.39) gm/dL PEP Pathologist Comment Triglycerides (42-150) mg/dL Cholesterol (120-200) mg/dL LDL Cholesterol, Calc (0-99) mg/dL HDL Cholesterol (40.0-60.0) mg/dL Cholesterol/HDL Ratio Ratio Vitamin B12 (193-986) pg/mL Methylmalonic Acid (<=0.40) nmol/mL TSH (0.358-3.740) uIU/mL Free T4 (0.76-1.46) ng/dL Urine Color Yellow (Yellw/Straw) Urine Clarity Hazy H (Clear) Urine pH 6.0 (5.0-8.5) Ur Specific [place] 1.015 (1.002-1.035) Urine Protein 100 H (Neg-Trace) mg/dL Urine Glucose (UA) Negative (Negative) mg/dL Urine Ketones Trace H (Negative) mg/dL Urine Occult Blood Negative (Negative) Urine Nitrate Negative (Negative) Urine Bilirubin Negative (Negative) Urine Urobilinogen Less than 2 (Less than 2) mg/dL Ur Leukocyte Esterase Trace H (Negative) Urine RBC 1 (0-3) /hpf Urine WBC 5 (0-5) /hpf Ur Squamous Epith Cells 1 (0-5) /hpf Hyaline Casts 1 (0-3) /lpf Urine Mucus Few H (Occasional) /lpf Micro UA Comment Culture not ind Ur Microscopic Review Not Reportable Urine Culture Comments Culture not ind Carbamazepine 10.7 (4.0-12.0) mcg/mL ARCHIE Screen (Neg) RPR (Nonreactive) 03/13/18 03/13/18 03/13/18 Range/Units 06:16 06:16 08:40 WBC (4.0-11.0) th/mm3 RBC (4.50-5.90) mil/mm3 Hgb (13.0-17.0) gm/dL Hct (39.0-51.0) % MCV (80.0-100.0) fL MCH (27.0-34.0) pg MCHC (32.0-36.0) % RDW (11.6-17.2) % Plt Count (150-450) th/mm3 MPV (7.0-11.0) fL Neut % (Auto) (16.0-70.0) % Lymph % (Auto) (9.0-44.0) % [place] % (Auto) (0.0-8.0) % Eos % (Auto) (0.0-4.0) % Baso % (Auto) (0.0-2.0) % Neut # (Auto) (1.8-7.7) th/mm3 Lymph # (Auto) (1.0-4.8) th/mm3 [place] # (Auto) (0.0-0.9) th/mm3 Eos # (Auto) (0.0-0.4) th/mm3 Baso # (Auto) (0.0-0.2) th/mm3 WBC Differential Differential Comment ESR 13 (0-20) mm/hr Sodium 142 (136-145) meq/L Potassium 3.7 (3.5-5.1) meq/L Chloride 104 (98-107) meq/L Carbon Dioxide 32.4 H (21.0-32.0) meq/L Anion Gap 6 (5-15) meq/L BUN 10 (7-18) mg/dL Creatinine 0.89 (0.60-1.30) mg/dL Estimated GFR Greater than 89 (>89) mL/min Random Glucose 83 (74-106) mg/dL Lactic Acid (0.4-2.0) mmol/L Calcium 9.1 (8.5-10.1) mg/dL Total Bilirubin (0.2-1.0) mg/dL AST (15-37) U/L ALT (12-78) U/L Alkaline Phosphatase (45-117) U/L Troponin I (0.02-0.05) ng/mL Total Protein (6.4-8.2) g/dL Total Protein (PEP) 6.4 (6.4-8.2) gm/dL Albumin (3.4-5.0) g/dL Albumin (PEP) 3.63 (3.50-5.00) gm/dL Albumin/Globulin Ratio 1.31 L (1.39-2.23) Cptrp-9-Qbwrpauzq 0.20 (0.11-0.29) gm/dL Sbqty-3-Ybmlflmak 0.80 (0.22-1.00) gm/dL Beta Globulins 0.64 (0.53-1.03) gm/dL Gamma Globulins 1.13 (0.50-1.39) gm/dL PEP Pathologist Comment Triglycerides (42-150) mg/dL Cholesterol (120-200) mg/dL LDL Cholesterol, Calc (0-99) mg/dL HDL Cholesterol (40.0-60.0) mg/dL Cholesterol/HDL Ratio Ratio Vitamin B12 572 (193-986) pg/mL Methylmalonic Acid (<=0.40) nmol/mL TSH 2.700 (0.358-3.740) uIU/mL Free T4 0.99 (0.76-1.46) ng/dL Urine Color (Yellw/Straw) Urine Clarity (Clear) Urine pH (5.0-8.5) Ur Specific [place] (1.002-1.035) Urine Protein (Neg-Trace) mg/dL Urine Glucose (UA) (Negative) mg/dL Urine Ketones (Negative) mg/dL Urine Occult Blood (Negative) Urine Nitrate (Negative) Urine Bilirubin (Negative) Urine Urobilinogen (Less than 2) mg/dL Ur Leukocyte Esterase (Negative) Urine RBC (0-3) /hpf Urine WBC (0-5) /hpf Ur Squamous Epith Cells (0-5) /hpf Hyaline Casts (0-3) /lpf Urine Mucus (Occasional) /lpf Micro UA Comment Ur Microscopic Review Urine Culture Comments Carbamazepine (4.0-12.0) mcg/mL ARCHIE Screen (Neg) RPR (Nonreactive) 03/13/18 03/13/18 03/14/18 Range/Units 08:40 08:40 09:45 WBC (4.0-11.0) th/mm3 RBC (4.50-5.90) mil/mm3 Hgb (13.0-17.0) gm/dL Hct (39.0-51.0) % MCV (80.0-100.0) fL MCH (27.0-34.0) pg MCHC (32.0-36.0) % RDW (11.6-17.2) % Plt Count (150-450) th/mm3 MPV (7.0-11.0) fL Neut % (Auto) (16.0-70.0) % Lymph % (Auto) (9.0-44.0) % [place] % (Auto) (0.0-8.0) % Eos % (Auto) (0.0-4.0) % Baso % (Auto) (0.0-2.0) % Neut # (Auto) (1.8-7.7) th/mm3 Lymph # (Auto) (1.0-4.8) th/mm3 [place] # (Auto) (0.0-0.9) th/mm3 Eos # (Auto) (0.0-0.4) th/mm3 Baso # (Auto) (0.0-0.2) th/mm3 WBC Differential Differential Comment ESR (0-20) mm/hr Sodium (136-145) meq/L Potassium (3.5-5.1) meq/L Chloride (98-107) meq/L Carbon Dioxide (21.0-32.0) meq/L Anion Gap (5-15) meq/L BUN (7-18) mg/dL Creatinine (0.60-1.30) mg/dL Estimated GFR (>89) mL/min Random Glucose (74-106) mg/dL Lactic Acid (0.4-2.0) mmol/L Calcium (8.5-10.1) mg/dL Total Bilirubin (0.2-1.0) mg/dL AST (15-37) U/L ALT (12-78) U/L Alkaline Phosphatase (45-117) U/L Troponin I (0.02-0.05) ng/mL Total Protein (6.4-8.2) g/dL Total Protein (PEP) (6.4-8.2) gm/dL Albumin (3.4-5.0) g/dL Albumin (PEP) (3.50-5.00) gm/dL Albumin/Globulin Ratio (1.39-2.23) Tqovm-8-Trmrrjzrq (0.11-0.29) gm/dL Nxuat-4-Weuuumqng (0.22-1.00) gm/dL Beta Globulins (0.53-1.03) gm/dL Gamma Globulins (0.50-1.39) gm/dL PEP Pathologist Comment Triglycerides 72 (42-150) mg/dL Cholesterol 164 (120-200) mg/dL LDL Cholesterol, Calc 98 (0-99) mg/dL HDL Cholesterol 52.1 (40.0-60.0) mg/dL Cholesterol/HDL Ratio 3.14 Ratio Vitamin B12 (193-986) pg/mL Methylmalonic Acid 0.14 (<=0.40) nmol/mL TSH (0.358-3.740) uIU/mL Free T4 (0.76-1.46) ng/dL Urine Color (Yellw/Straw) Urine Clarity (Clear) Urine pH (5.0-8.5) Ur Specific [place] (1.002-1.035) Urine Protein (Neg-Trace) mg/dL Urine Glucose (UA) (Negative) mg/dL Urine Ketones (Negative) mg/dL Urine Occult Blood (Negative) Urine Nitrate (Negative) Urine Bilirubin (Negative) Urine Urobilinogen (Less than 2) mg/dL Ur Leukocyte Esterase (Negative) Urine RBC (0-3) /hpf Urine WBC (0-5) /hpf Ur Squamous Epith Cells (0-5) /hpf Hyaline Casts (0-3) /lpf Urine Mucus (Occasional) /lpf Micro UA Comment Ur Microscopic Review Urine Culture Comments Carbamazepine (4.0-12.0) mcg/mL ARCHIE Screen Neg (Neg) RPR Nonreactive (Nonreactive) Imaging Data Radiologist's impression: Chest X-Ray 03/12/18 01:20 CONCLUSION: Cardiomegaly. Mild basilar atelectasis. No significant effusion. Head CT 03/12/18 04:33 CONCLUSION: 1. No acute findings compared with March 2017. . Head MRI 03/13/18 07:53 CONCLUSION: Ventriculomegaly and white matter disease with acute right frontal infarct. Neck MRA 03/14/18 00:00 CONCLUSION: No evidence of carotid stenosis. Percent stenosis is calculated using the diameter of the stenotic region over the diameter of the normal distal internal carotid artery Head MRA 03/14/18 07:17 There is excellent visualization of the major intracranial arteries out to the second-order branch vessels. The basilar artery is ectatic and tortuous. There is motion artifact. There does appear to be diminutive signal within an insular branch of the right middle cerebral artery. CONCLUSION: 1. Ectatic and tortuous basilar artery. 2. Diminutive flow within right middle cerebral artery insular branch. Discharge Plan Discharge Disposition Patient Disposition: 01 Discharge Home Discharge Condition Condition: Stable Discharge Order Discharge Orders: Discharge Order (Routine); Ordered 03/15/18 Ordered By: Amie Rodriguez Physicians Team ED Provider: Raj Manzo Primary Care Provider: UNKNOWN, Attending Provider: Clayton Staley Other Providers: Heron Goodwin ; Lokesh Campa ; Jack Crum Status ED Status: Left Department Discharge Information Discharge Date/Time: 03/12/18 17:05
--- NOTE | 2018-03-12 05:38 | CT ---
EXAM DATE: 03/12/2018 5:00 AM EDT AGE/SEX: 72 years / Male INDICATIONS: Altered mental status. CLINICAL DATA: This is the patient's initial encounter. Patient reports that signs and symptoms have been present for 1 day and indicates a pain score of Nonresponsive. MEDICAL/SURGICAL HISTORY: Cardiovascular disease. Hypertension. Dementia. Seizures None. RADIATION DOSE: 40.67 CTDI (mGy) COMPARISON: [facility] [place] B[place]/O [place], 03/13/2017. . TECHNIQUE: CT of the head without contrast. Using automated exposure control and adjustment of the mA and/or kV according to patient size, radiation dose was kept as low as reasonably achievable to ob tain optimal diagnostic quality images. DICOM format image data is available electronically for revi ew and comparison. FINDINGS: Cerebrum: No mass effect or midline shift. Stable atrophy and mild ventricular prominence. Stable ch ronic white matter ischemic changes. Posterior Fossa: The cerebellum and brainstem are intact. The 4th ventricle is midline. The cerebe llopontine angle is unremarkable. Stable tortuous and ectatic basilar artery. Extracranial: The visualized portion of the orbits is intact. Skull: The calvaria is intact. No evidence of skull fracture. CONCLUSION: 1. No acute findings compared with March 2017. . Electronically signed by: Bartolo Reeder MD 03/12/2018 5:37 AM EDT
[2018-03-12] MEDS ORDERED: Labetalol HCl Inj 100 MG/20 ML Vial IV.PUSH ONE ×2 (05:45)
[2018-03-12] MEDS ORDERED: Acetaminophen 325 MG Tablet PO PRN (06:26)
[2018-03-12] MEDS: Sodium Chloride 0.45 % Inj 1,000 ML IV.CONT SCH ×2 (10:31→20:59)
--- NOTE | 2018-03-12 14:03 | ECG ---
Date Performed: 03/12/2018 Time Performed: 00:08:47 PTAGE: 72 years EKG: Sinus rhythm WITH OCCASIONAL VENTRICULAR PREMATURE COMPLEXES MODERATE INTRAVENTRICULAR CONDUCTION DELAY BORDERLIN E ECG Since the PREVIOUS TRACING , no significant change noted PREVIOUS TRACIN08/18/2014 22.45 DOCTOR: Ryland Hendricks Interpretating Date/Time 03/12/2018 14:01:27
[2018-03-12] MEDS ORDERED: Senna/Docusate Sodium 8.6/50 MG Tablet PO PRN (14:44)
--- NOTE | 2018-03-12 14:48 | P.PNIM ---
Physical Exam Vital signs: Vital Signs 03/11/18 23:47 03/11/18 23:57 03/12/18 00:01 Temperature 99 F Pulse Rate 96 H 96 H Respiratory Rate 18 18 18 Blood Pressure 186/138 H 178/124 H Pulse Oximetry 90 L 95 03/12/18 00:27 03/12/18 00:59 03/12/18 05:50 Temperature Pulse Rate 96 H 90 Respiratory Rate 18 Blood Pressure 154/94 H Pulse Oximetry 100 97 03/12/18 06:24 03/12/18 07:00 03/12/18 10:00 Temperature Pulse Rate 75 72 70 Respiratory Rate 16 16 16 Blood Pressure 115/73 119/75 161/112 H Pulse Oximetry 95 98 03/12/18 12:00 Temperature Pulse Rate 70 Respiratory Rate 18 Blood Pressure 170/123 H Pulse Oximetry Intake & Output 03/11/18 03/12/18 03/12/18 18:59 06:59 18:59 Weight 106.594 kg - Urinary Catheter Management Straight Cath placed during this visit: yes Reason for continuing: Not indwelling catheter Insertion date: 03/12/18 Insertion time: 00:46 Results - Labs CBC & Chem 7: 03/12/18 00:25 03/12/18 00:25 Laboratory Results - last 24 hr 03/12/18 03/12/18 03/12/18 00:25 00:25 00:25 WBC 13.1 H RBC 4.80 Hgb 14.0 Hct 42.9 MCV 89.4 MCH 29.2 MCHC 32.6 RDW 14.5 Plt Count 249 MPV 7.7 Neut % (Auto) 81.5 H Lymph % (Auto) 12.6 [place] % (Auto) 4.9 Eos % (Auto) 0.6 Baso % (Auto) 0.4 Neut # (Auto) 10.7 H Lymph # (Auto) 1.7 [place] # (Auto) 0.6 Eos # (Auto) 0.1 Baso # (Auto) 0.1 WBC Differential . Differential Comment Auto diff final Sodium 144 Potassium 3.4 L Chloride 107 Carbon Dioxide 31.7 Anion Gap 5 BUN 12 Creatinine 0.87 Estimated GFR Greater than 89 Random Glucose 114 H Lactic Acid 0.9 Calcium 8.5 Total Bilirubin 0.3 AST 8 L ALT 15 Alkaline Phosphatase 59 Troponin I Less than 0.02 L Total Protein 7.0 Albumin 3.3 L Urine Color Urine Clarity Urine pH Ur Specific [place] Urine Protein Urine Glucose (UA) Urine Ketones Urine Occult Blood Urine Nitrate Urine Bilirubin Urine Urobilinogen Ur Leukocyte Esterase Urine RBC Urine WBC Ur Squamous Epith Cells Hyaline Casts Urine Mucus Micro UA Comment Ur Microscopic Review Urine Culture Comments 03/12/18 00:50 WBC RBC Hgb Hct MCV MCH MCHC RDW Plt Count MPV Neut % (Auto) Lymph % (Auto) [place] % (Auto) Eos % (Auto) Baso % (Auto) Neut # (Auto) Lymph # (Auto) [place] # (Auto) Eos # (Auto) Baso # (Auto) WBC Differential Differential Comment Sodium Potassium Chloride Carbon Dioxide Anion Gap BUN Creatinine Estimated GFR Random Glucose Lactic Acid Calcium Total Bilirubin AST ALT Alkaline Phosphatase Troponin I Total Protein Albumin Urine Color Yellow Urine Clarity Hazy H Urine pH 6.0 Ur Specific [place] 1.015 Urine Protein 100 H Urine Glucose (UA) Negative Urine Ketones Trace H Urine Occult Blood Negative Urine Nitrate Negative Urine Bilirubin Negative Urine Urobilinogen Less than 2 Ur Leukocyte Esterase Trace H Urine RBC 1 Urine WBC 5 Ur Squamous Epith Cells 1 Hyaline Casts 1 Urine Mucus Few H Micro UA Comment Culture not ind Ur Microscopic Review Not Reportable Urine Culture Comments Culture not ind - Imaging Impressions Chest X-Ray 03/12/18 01:20 CONCLUSION: Cardiomegaly. Mild basilar atelectasis. No significant effusion. Head CT 03/12/18 04:33 CONCLUSION: 1. No acute findings compared with March 2017. .
--- NOTE | 2018-03-12 15:03 | P.HPIM ---
History of Present Illness [facility]: [facility] Primary [facility] Physician: UNKNOWN History of Present Illness: History obtained from review of the EMR and discussion with the patient's . He is a 72-year-old male with a past medical history significant for dementia , seizure disorder, chronic kidney disease, hypertension who was sent from a senior care facility for possible seizure after he was reportedly found to be lethargic and minimally responsive. His report the halfway called him and stated that he will be sent to the hospital due to seizure and uncontrolled blood pressure. Per the patient's , he has been bedbound for a long time. She noticed that he seemed to be worn out today but no other change in his baseline level of functioning.. Blood pressure was elevated at 186/138 in the emergency room. On my evaluation, the patient denies any pain. The patient himself cannot contribute much to the history. He has no complaints. - Diagnosis (1) Acute encephalopathy (2) Accelerated hypertension (3) Dementia (4) Seizure disorder Review of Systems unobtainable due to mental status PMFSH - History History Provided By: Patient - Medical History Medical History: Medical History (Last Updated 03/12/18 @ 18:34 by Carla Woodard MD) Seizure (Acute) Caregiver unable to obtain copy of document Dementia Hypertension - Family History Family History: Family History (Last Updated 03/12/18 @ 18:34 by Carla Woodard MD) Other Family history non-contributory - Social History I have reviewed the patient's Social History: Yes - Tobacco History Smoking Status: Unknown if ever smoked - Alcohol History How Often Do You Have a Drink Containing Alcohol: Unable to Obtain - Substance Use History Substance History: No History of Abuse - Travel History Recent Travel in the [facility] Within the Last 8 Weeks: No Recent Travel Out of the Country Within the Last 8 Weeks: No - Immunization History Tetanus Immunization: Unable to Assess Hx Influenza Vaccine This Season: Unable to Assess Medications and Allergies Active Medications: Active Medications Acetaminophen (Tylenol) 650 mg PO Q4H PRN PRN Reason: Temp > 100.4 Enoxaparin Sodium (Lovenox Inj) 40 mg SQ Q24H ROBBY Finasteride (Proscar) 5 mg PO DAILY ROBBY Sodium Chloride (1/2 Normal Saline Inj) 1,000 mls @ 75 mls/hr IV.CONT .[id number] ROBBY Last Admin: 03/12/18 10:31 Dose: 75 mls/hr Levothyroxine Sodium (Synthroid) 25 mcg PO DAILY [facility] Lisinopril (Prinivil) 10 mg PO DAILY [facility] Metoclopramide HCl (Reglan) 10 mg PO QID [facility] Non-Formulary Medication (Amlodipine [Amlodipine]) 2.5 mg PO DAILY [facility] Non-Formulary Medication (Carbamazepine [Carbamazepine]) 400 mg PO TID ROBBY Non-Formulary Medication (Clomipramine [Anafranil]) 25 mg PO HS [facility] Non-Formulary Medication (Erythromycin [Erythromycin]) 250 mg PO Q12H [facility] Non-Formulary Medication (Omeprazole [Omeprazole]) 40 mg PO DAILY [facility] Non-Formulary Medication (Allopurinol [Allopurinol]) 200 mg PO DAILY [facility] Non-Formulary Medication (Quetiapine [Seroquel]) 50 mg PO HS [facility] Ondansetron HCl (Zofran Inj) 4 mg IV.PUSH Q6H PRN PRN Reason: NAUSEA OR VOMITING Ondansetron HCl (Zofran Odt) 4 mg PO TID PRN PRN Reason: Nausea Potassium Chloride (Klor-Con 10) 10 meq PO DAILY [facility] Senna/Docusate Sodium (Bhavna-Colace) 1 tab PO BID PRN PRN Reason: Constipation Sertraline HCl (Zoloft) 100 mg PO DAILY [facility] Sodium Chloride (Ns Flush) 2 ml IV.FLUSH PRN PRN PRN Reason: FLUSH AFTER USING IV ACCESS Allergies Allergy/AdvReac Type Severity Reaction Status Date / Time propoxyphene Allergy Severe Hives Verified 03/12/18 00:07 *MDRO Multi-Drug Resistant AdvReac Unknown Rash Uncoded 03/12/18 00:07 Organism Home Medications Medication Instructions Recorded Confirmed Type allopurinol 200 mg PO DAILY 03/12/18 03/12/18 History alprazolam 1 mg PO Q8HR 03/12/18 03/12/18 History amlodipine 2.5 mg PO DAILY 03/12/18 03/12/18 History carbamazepine 400 mg PO TID 03/12/18 03/12/18 History clomipramine [Anafranil] 25 mg PO HS 03/12/18 03/12/18 History erythromycin 250 mg PO Q12H 03/12/18 03/12/18 History finasteride 5 mg PO DAILY 03/12/18 03/12/18 History furosemide 20 mg PO DAILY 03/12/18 03/12/18 History levothyroxine 25 mcg PO DAILY 03/12/18 03/12/18 History lisinopril 10 mg PO DAILY 03/12/18 03/12/18 History metoclopramide HCl 10 mg PO QID 03/12/18 03/12/18 History multivitamin,[id number] 1 tab PO DAILY 03/12/18 03/12/18 History [Thera-M] omeprazole 40 mg PO DAILY 03/12/18 03/12/18 History ondansetron 4 mg PO TID PRN 03/12/18 03/12/18 History potassium chloride [Klor-Con 10] 1 tab PO DAILY 03/12/18 03/12/18 History quetiapine [Seroquel] 50 mg PO HS 03/12/18 03/12/18 History sennosides-docusate sodium [Senna 1 tab PO BID PRN 03/12/18 03/12/18 History with Docusate Sodium] sertraline 100 mg PO DAILY 03/12/18 03/12/18 History Exam Vital signs: Vital Signs 03/11/18 23:47 03/11/18 23:57 03/12/18 00:01 Temperature 99 F Pulse Rate 96 H 96 H Respiratory Rate 18 18 18 Blood Pressure 186/138 H 178/124 H Pulse Oximetry 90 L 95 03/12/18 00:27 03/12/18 00:59 03/12/18 05:50 Temperature Pulse Rate 96 H 90 Respiratory Rate 18 Blood Pressure 154/94 H Pulse Oximetry 100 97 03/12/18 06:24 03/12/18 07:00 03/12/18 10:00 Temperature Pulse Rate 75 72 70 Respiratory Rate 16 16 16 Blood Pressure 115/73 119/75 161/112 H Pulse Oximetry 95 98 03/12/18 12:00 Temperature Pulse Rate 70 Respiratory Rate 18 Blood Pressure 170/123 H Pulse Oximetry Intake & Output 03/11/18 03/12/18 03/12/18 18:59 06:59 18:59 Weight 106.594 kg Narrative: GENERAL: Elderly and chronically ill-appearing male. CARDIOVASCULAR: Normal rate and regular rhythm without murmurs, gallops, or rubs. RESPIRATORY: Good respiratory efforts. Breath sounds equal and clear to auscultation bilaterally. GASTROINTESTINAL: Abdomen soft, non-tender, non-distended. Normal active bowel sounds MUSCULOSKELETAL: Extremities without cyanosis, or edema. NEURO: Alert & Oriented to self only. Intermittently follows some commands. Profoundly generalized weakness PSYCH: Calm Results - Labs CBC & Chem 7: 03/12/18 00:25 03/12/18 00:25 Labs: Short CBC 03/12/18 Range/Units 00:25 WBC 13.1 H (4.0-11.0) th/mm3 Hgb 14.0 (13.0-17.0) gm/dL Hct 42.9 (39.0-51.0) % Plt Count 249 (150-450) th/mm3 BMP 03/12/18 00:25 Sodium 144 Potassium 3.4 L Chloride 107 Carbon Dioxide 31.7 BUN 12 Creatinine 0.87 Calcium 8.5 Cardiac Enzymes 03/12/18 Range/Units 00:25 Troponin I Less than 0.02 L (0.02-0.05) ng/mL Liver Function 03/12/18 Range/Units 00:25 Total Bilirubin 0.3 (0.2-1.0) mg/dL AST 8 L (15-37) U/L ALT 15 (12-78) U/L Alkaline Phosphatase 59 (45-117) U/L Albumin 3.3 L (3.4-5.0) g/dL Urine 03/12/18 Range/Units 00:50 Urine Color Yellow (Yellw/Straw) Urine Clarity Hazy H (Clear) Urine pH 6.0 (5.0-8.5) Ur Specific Ewing 1.015 (1.002-1.035) Urine Protein 100 H (Neg-Trace) mg/dL Urine Glucose (UA) Negative (Negative) mg/dL - Imaging Impressions Chest X-Ray 03/12/18 01:20 CONCLUSION: Cardiomegaly. Mild basilar atelectasis. No significant effusion. Head CT 03/12/18 04:33 CONCLUSION: 1. No acute findings compared with March 2017. . Caprini VTE Risk Assessment Caprini VTE Risk Assessment: Moderate/High Risk (score >= 2) Caprini Risk Assessment Model: Point Value = 1 Point Value = 2 Point Value = 3 Point Value = 5 Age 41-60 Minor surgery BMI > 25 kg/m2 Swollen legs Varicose veins or History of unexplained or recurrent spontaneous Oral contraceptives or hormone replacement Sepsis (< 1 month) Serious lung disease, including pneumonia (< 1 month) Abnormal pulmonary function Acute myocardial infarction Congestive heart failure (< 1 month) History of inflammatory bowel disease Medical patient at bed rest Age 61-74 Arthroscopic surgery Major open surgery (> 45 min) Laparoscopic surgery (> 45 min) Malignancy Confined to bed (> 72 hours) Immobilizing plaster cast Central venous access Age >= 75 History of VTE Family history of VTE Factor V Leiden Prothrombin [id number] Lupus anticoagulant Anticardiolipin antibodies Elevated serum homocysteine Heparin-induced thrombocytopenia Other congenital or acquired thrombophilia Stroke (< 1 month) Elective arthroplasty Hip, pelvis, or leg fracture Acute spinal cord injury (< 1 month) Prophylaxis Regimen: Total Risk Factor Score Risk Level Prophylaxis Regimen 0-1 Low Early ambulation 2 Moderate Order ONE of the following: *Sequential Compression Device (SCD) *Heparin 5000 units SQ BID 3-4 Higher Order ONE of the following medications: *Heparin 5000 units SQ TID *Enoxaparin/Lovenox 40 mg SQ daily (WT < 150 kg, CrCl > 30 mL/min) *Enoxaparin/Lovenox 30 mg SQ daily (WT < 150 kg, CrCl > 10-29 mL/min) *Enoxaparin/Lovenox 30 mg SQ BID (WT < 150 kg, CrCl > 30 mL/min) AND/OR *Sequential Compression Device (SCD) 5 or more Highest Order ONE of the following medications: *Heparin 5000 units SQ TID (Preferred with Epidurals) *Enoxaparin/Lovenox 40 mg SQ daily (WT < 150 kg, CrCl > 30 mL/min) *Enoxaparin/Lovenox 30 mg SQ daily (WT < 150 kg, CrCl > 10-29 mL/min) *Enoxaparin/Lovenox 30 mg SQ BID (WT < 150 kg, CrCl > 30 mL/min) AND *Sequential Compression Device (SCD) Assessment and Plan - Assessment (1) Acute encephalopathy Code(s): G93.40 - Encephalopathy, unspecified Status: Acute (2) Accelerated hypertension Code(s): I10 - Essential (primary) hypertension Status: Acute (3) Dementia Code(s): F03.90 - Unspecified dementia without behavioral disturbance Status: Acute (4) Seizure disorder Code(s): G40.909 - Epilepsy, unspecified, not intractable, without status epilepticus Status: Acute - Plan 72-year-old male sent from a halfway for possible breakthrough seizures. Patient also has accelerated hypertension. Acute encephalopathy/possible breakthrough seizure: Reported from the halfway the patient was lethargic. - He seems to be back to baseline. He is bedbound and does not interact much. -Significant dementia. Aware of self only at baseline. - Patient has been on Tegretol. Per his , he does not follow with a neurologist. - Will obtain Tegretol level. Obtain EEG - Consult neurology for assistance. - Seizure precautions. Accelerated hypertension: -Resume lisinopril, amlodipine -Clonidine as needed. Titrate antihypertensives as needed. Dementia with occasional behavioral disturbances: - Continue Seroquel at night. - We will avoid using benzodiazepines. If agitated, may use PRN Haldol GI prophylaxis: Stool softener PRN constipation. DVT PPx: Lovenox
[2018-03-12] MEDS: Enoxaparin Inj 40 MG/0.4 ML Syringe SQ SCH (16:57)
[2018-03-12] MEDS: amLODIPine 5 MG Tablet PO SCH (16:57)
[2018-03-12] MEDS: carBAMazepine 200 MG Tablet PO SCH (18:37)
[2018-03-12] MEDS: Metoclopramide 10 MG Tablet PO SCH ×2 (18:37→20:21)
[2018-03-12] MEDS ORDERED: Lisinopril 20 MG Tablet PO ONE (19:10)
[2018-03-12] MEDS: QUEtiapine 25 MG Tablet PO SCH (20:21)
[2018-03-12] MEDS ORDERED: CLOMIPRAMINE 25 MG PO SCH (21:00)
--- NOTE | 2018-03-12 21:19 | MG ---
cc: Jb Fischer MD EEG RECORD: [id number] 4-6 Hz theta activity 10-30 microvolts with 2-3 Hz delta activity, suggestive of drowsy sleep state. Some spindles appreciated as well suggestive of stage II sleep. During arousals, the background is incremented up to 5-7 Hz. There is driving response to photic stimulation. Single lead EKG showing sinus rhythm. INTERPRETATION: Mild encephalopathy in sleep state. Clinical correlation. Jb Fischer MD MG/ct , 09:00 PM , 09:03 PM
[2018-03-13 07:23] LABS: Baso % (Auto) 0.7 % (0.0-2.0); Eos # (Auto) 0.1 th/mm3 (0.0-0.4); Eos % (Auto) 1.4 % (0.0-4.0); Hematocrit 40.3 % (39.0-51.0); Hemoglobin 12.8 gm/dL (13.0-17.0); Lymph # (Auto) 1.7 th/mm3 (1.0-4.8); Lymph % (Auto) 24.6 % (9.0-44.0); Mean Corpuscular HGB Conc 31.9 % (32.0-36.0); Mean Corpuscular Hemoglobin 28.8 pg (27.0-34.0); Mean Corpuscular Volume 90.2 fL (80.0-100.0); Mean Platelet Volume 7.8 fL (7.0-11.0); Mono # (Auto) 0.5 th/mm3 (0.0-0.9); Mono % (Auto) 7.8 % (0.0-8.0); Neut # (Auto) 4.6 th/mm3 (1.8-7.7); Neut % (Auto) 65.5 % (16.0-70.0); Platelet Count 229 th/mm3 (150-450); Red Blood Count 4.46 mil/mm3 (4.50-5.90); Red Cell Distribution Width 14.1 % (11.6-17.2)
[2018-03-13 07:50] LABS: Anion Gap 6 meq/L (5-15); Blood Urea Nitrogen 10 mg/dL (7-18); Calcium 9.1 mg/dL (8.5-10.1); Carbon Dioxide 32.4 meq/L (21.0-32.0); Chloride 104 meq/L (98-107); Glomerular Filtration Rate Greater Than 89 mL/min (>89); Glucose,Random 83 mg/dL (74-106); Potassium 3.7 meq/L (3.5-5.1); Sodium 142 meq/L (136-145)
[2018-03-13] MEDS: Metoclopramide 10 MG Tablet PO SCH ×4 (09:23→20:33)
[2018-03-13] MEDS: Allopurinol 100 MG Tablet PO SCH (09:24)
[2018-03-13] MEDS: Finasteride 5 MG Tablet PO SCH (09:24)
[2018-03-13] MEDS: amLODIPine 5 MG Tablet PO SCH (09:24)
[2018-03-13] MEDS: Lisinopril 10 MG Tablet PO SCH (09:24)
[2018-03-13] MEDS: Sertraline 100 MG Tablet PO SCH (09:25)
[2018-03-13] MEDS: carBAMazepine 200 MG Tablet PO SCH ×3 (09:30→18:33)
--- NOTE | 2018-03-13 09:31 | MB ---
cc: Heron Alexandre MD DATE: 03/13/2018 HISTORY OF PRESENT ILLNESS: A 72-year-old left-handed man whom Dr. Thompson saw in 2014 with probable seizure at home. found him on the floor next to the bed, incontinent of urine. He was confused and disoriented with a history of seizure disorder, not on any seizure medication at that time. CT scan of the brain just showed chronic changes. Carotid ultrasound was negative. He thought he had urosepsis. They put him on Keppra. He was intubated at that time. His EEG then was negative for any seizure activity. He had a brief episode of staring without response, possibly a complex partial seizure. He was put on Trileptal and increased to 600 t.i.d. He was in the hospital for several weeks. His CT showed ventriculomegaly. He seemed to get better off of Keppra. He was a little bit lethargic on it. He had an MRI of the brain at that time showed a lot of atrophy, a lot of white matter changes similar to 2010. The LDL cholesterol was normal at that time. Thyroid was normal then, ammonia level was normal. He was admitted from a [facility] yesterday, evidently bedbound with lower extremity weakness, history of seizures, on Seroquel for sleeping. He was lethargic. Change in mental status. He was more alert by the time he got to the ER. He was mildly hypertensive. He was subsequently admitted to the hospital. Chest x-ray showed cardiomegaly. He had a history by the admitting team of dementia, seizure disorder, chronic kidney disease, hypertension. He has been bedbound for a long time, he was back to baseline. MEDICATIONS: At the [facility]: 1. Zoloft 100 a day. 2. Seroquel 50 at night. 3. Multivitamin. 4. Ondansetron. 5. Omeprazole. 6. Metoclopramide. 7. Lisinopril. 8. Potassium. 9. Thyroid. 10. Lasix. 11. Finasteride. 12. Erythromycin 13. Tegretol 400 mg t.i.d. 14. Anafranil 25 at night. 15. Amlodipine. 16. Alprazolam 1 mg every 8 p.r.n. 17. Allopurinol. The patient medicines here: He is on the Tegretol 400 t.i.d. he is also on some Lovenox and the other medications he was on prior. REVIEW OF SYSTEMS: According to the patient, he denied any hypertension, diabetes, hypercholesterolemia, PR, CABG, heart problems, renal, hepatic, pulmonary disease, thyroid disease, lupus, ulcer, cancer, seizure or stroke. SOCIAL HISTORY: Not a smoker or drinker. Said he lived at a [facility], evidently he lives in a [facility]. FAMILY HISTORY: Negative for cancer, seizure or stroke according to the patient. PHYSICAL EXAMINATION: VITAL SIGNS: Sinus rhythm, afebrile to 99.0,73,19,160/101; initially 186/138 and as high as 205/128 now 135/74. NECK: There were no carotid bruits. HEART: Regular rate and rhythm. I did not detect a murmur. NEUROLOGIC: At the right eye is a strabismus and turned in. Visual cedillo are full; however. The face has a little bit of a left facial droop, but he moved it fairly well on the left side. Tongue was midline. He has cogwheel rigidity in bilateral upper extremities, though he denies any history of Parkinson disease. He moves his arm somewhat. His legs he withdraws normally. The toes are equivocal. DTRs are trace to absent throughout. He seems to feel discomfort throughout. He could name my glasses and says mainly yes and no, but he did say he lived in a [facility]. Did not know the year. LABORATORY DATA: CBC essentially normal. Coags are normal. Basic metabolic profile is normal. LFTs are normal. Troponin negative. LDL cholesterol is normal. His UA is essentially negative, just trace leukocyte esterase. Tegretol 10.7. He had an EEG done yesterday, was read as negative. He had a CT scan of his brain done, no change from 03/2017. Review of those films show some slightly prominent ventricles, not extremely large, but some central atrophy and cortical atrophy. ASSESSMENT AND PLAN: Mild left facial droop. We will recheck MRI that is negative, he could be discharged back to the [facility] and I could follow up with him outpatient. It is certainly not definite here that he had a seizure and I would not change his medications at this time. I would check his thyroid and B12, some other medication for his dementia, I might start him on some memory medicines as an outpatient. MD JORGE Corona/tino , 07:52 AM , 08:01 AM
[2018-03-13 10:35] LABS: Free T4 (Free Thyroxine) 0.99 ng/dL (0.76-1.46); Thyroid Stimulating Hormone 2.7 uIU/mL (0.358-3.740)
[2018-03-13] MEDS: Sodium Chloride 0.45 % Inj 1,000 ML IV.CONT SCH ×2 (13:27→22:30)
[2018-03-13 14:46] LABS: Anti-Nuclear Antibody Screen Neg (Neg)
[2018-03-13] MEDS: Enoxaparin Inj 40 MG/0.4 ML Syringe SQ SCH (15:59)
--- NOTE | 2018-03-13 17:36 | P.PN ---
Subjective Interval history: Patient is seen lying in bed sleeping. Briefly wakes; makes eye contact but does not answer questions or follow commands. Known severe dementia; no family at bedside. Nursing reports no adverse events. Physical Exam Vital signs: Vital Signs 03/12/18 17:33 03/12/18 18:30 03/12/18 19:44 Temperature 98.4 F 97.5 F L Pulse Rate 65 67 72 Respiratory Rate 12 19 Blood Pressure 194/115 H 205/128 H Pulse Oximetry 97 9 L 03/12/18 20:00 03/12/18 20:40 03/12/18 23:57 Temperature 98.2 F Pulse Rate 83 Respiratory Rate 19 Blood Pressure 160/101 H 167/105 H Pulse Oximetry 95 95 03/13/18 00:00 03/13/18 03:57 03/13/18 04:04 Temperature 99.0 F Pulse Rate 81 73 71 Respiratory Rate 19 Blood Pressure 135/74 Pulse Oximetry 100 03/13/18 08:00 03/13/18 11:48 03/13/18 15:51 Temperature 98.9 F 98.8 F 97.6 F Pulse Rate 75 80 66 Respiratory Rate 16 16 12 Blood Pressure 131/89 106/62 163/99 H Pulse Oximetry 98 98 97 Intake & Output 03/12/18 03/13/18 03/13/18 18:59 06:59 18:59 Intake Total 120 / 120 1000 / 1000 1000 / 1000 Balance 120 / 120 1000 / 1000 1000 / 1000 Weight 106.594 kg Intake: IV 1000 / 1000 1000 / 1000 1/2 Normal Saline Inj 1,000 ML 1000 / 1000 1000 / 1000 @ 75 mls/hr IV.CONT .[id number] PENDING SALE TO [facility] Rx#:[id number] Oral 120 / 120 Other: # Voids 2 Weight On Admission 106.594 kg Narrative: GENERAL: Well-nourished, well-developed adult male in no obvious distress. SKIN: Warm and dry. HEAD: Atraumatic. Normocephalic. CARDIOVASCULAR: Regular rate and rhythm. RESPIRATORY: No accessory muscle use. Clear to auscultation. Breath sounds equal bilaterally. GASTROINTESTINAL: Abdomen soft, non-tender, non-distended. Positive bowel sounds. MUSCULOSKELETAL: Extremities without clubbing, cyanosis, or edema. No obvious deformities. NEUROLOGICAL: Lethargic. Limited neurological exam as patient will not follow commands. PSYCHIATRIC: Severe dimension; poor historian. - Urinary Catheter Management Straight Cath placed during this visit: yes Reason for continuing: Not indwelling catheter Insertion date: 03/12/18 Insertion time: 00:46 Results - Labs CBC & Chem 7: 03/13/18 06:16 09 06:16 Laboratory Results - last 24 hr 03/12/18 03/13/18 03/13/18 00:25 06:16 06:16 WBC 7.0 RBC 4.46 L Hgb 12.8 L Hct 40.3 MCV 90.2 MCH 28.8 MCHC 31.9 L RDW 14.1 Plt Count 229 MPV 7.8 Neut % (Auto) 65.5 Lymph % (Auto) 24.6 Isabela % (Auto) 7.8 Eos % (Auto) 1.4 Baso % (Auto) 0.7 Neut # (Auto) 4.6 Lymph # (Auto) 1.7 Isabela # (Auto) 0.5 Eos # (Auto) 0.1 Baso # (Auto) 0.0 WBC Differential . Differential Comment Auto diff final ESR Sodium 142 Potassium 3.7 Chloride 104 Carbon Dioxide 32.4 H Anion Gap 6 BUN 10 Creatinine 0.89 Estimated GFR Greater than 89 Random Glucose 83 Calcium 9.1 Total Protein (PEP) Vitamin B12 TSH Free T4 Carbamazepine 10.7 ARCHIE Screen RPR 03/13/18 03/13/18 03/13/18 06:16 08:40 08:40 WBC RBC Hgb Hct MCV MCH MCHC RDW Plt Count MPV Neut % (Auto) Lymph % (Auto) Isabela % (Auto) Eos % (Auto) Baso % (Auto) Neut # (Auto) Lymph # (Auto) Isabela # (Auto) Eos # (Auto) Baso # (Auto) WBC Differential Differential Comment ESR 13 Sodium Potassium Chloride Carbon Dioxide Anion Gap BUN Creatinine Estimated GFR Random Glucose Calcium Total Protein (PEP) 6.4 Vitamin B12 572 TSH 2.700 Free T4 0.99 Carbamazepine ARCHIE Screen Neg RPR Nonreactive Microbiology 03/12/18 00:20 Blood - Peripheral Aerobic Blood Culture - Preliminary No growth in 1 day 03/12/18 00:20 Blood - Peripheral Anaerobic Blood Culture - Preliminary No growth in 1 day 03/12/18 00:25 Blood - Peripheral Aerobic Blood Culture - Preliminary No growth in 1 day 03/12/18 00:25 Blood - Peripheral Anaerobic Blood Culture - Preliminary No growth in 1 day Assessment and Plan - Assessment (1) Acute encephalopathy Code(s): G93.40 - Encephalopathy, unspecified Status: Acute (2) Accelerated hypertension Code(s): I10 - Essential (primary) hypertension Status: Acute (3) Dementia Code(s): F03.90 - Unspecified dementia without behavioral disturbance Status: Acute (4) Seizure disorder Code(s): G40.909 - Epilepsy, unspecified, not intractable, without status epilepticus Status: Acute - Plan 72-year-old male sent from a shelter for possible breakthrough seizures. Patient also has accelerated hypertension. Acute encephalopathy/possible breakthrough seizure: Reported from the shelter the patient was lethargic. - He seems to be back to baseline. He is bedbound and does not interact much. -Significant dementia. Aware of self only at baseline. - Patient has been on Tegretol. Per his , he does not follow with a neurologist. - Will obtain Tegretol level. EEG negative. MRI pending. - Consult neurology for assistance. -Neurology does not feel the medication change for seizure is needed. - Seizure precautions. Accelerated hypertension: -Resume lisinopril, amlodipine -Clonidine as needed. Dementia with occasional behavioral disturbances: - Continue Seroquel at night. - We will avoid using benzodiazepines. If agitated, may use PRN Haldol GI prophylaxis: Stool softener PRN constipation. DVT PPx: Lovenox Discharge planning: We will discharge to SNF once cleared by neurology.
[2018-03-13] MEDS ORDERED: Gadobutrol PF 10 MMOL/10 ML Vial (for RAD) IV.SIG ONE (17:50)
--- NOTE | 2018-03-13 17:50 | MR ---
EXAM DATE: 03/13/2018 5:46 PM EDT AGE/SEX: 72 years / Male INDICATIONS: CVA. AMS, uncontrolled HTN & mild encephalopathy. CLINICAL DATA: This is the patient's subsequent encounter. Patient reports that signs and symptoms h ave been present for 2 days and indicates a pain score of 0/10. MEDICAL/SURGICAL HISTORY: Hypertension. Renal Disease, dementia, Seizures . TURP COMPARISON: [facility], CT HEAD W/O CONTRAST, 03/12/2018. . TECHNIQUE: Multiplanar, multisequence examination of the brain was performed without and with 9 ml Ga davist (gadobutrol) contrast as a single exam dose. FINDINGS: Diffusion weighted images demonstrate restricted diffusion in the right frontal region characteristic of an area of acute infarction. This has corresponding decreased signal on the ADC map. There is keagan triculomegaly, and confluent increased signal on FLAIR images in the centrum semiovale and periventri cular white matter. Significant motion artifact is noted. There is no hemorrhage. There is ectasia of the basilar artery identified. CONCLUSION: Ventriculomegaly and white matter disease with acute right frontal infarct. Electronically signed by: Osmin Downey MD 03/13/2018 5:49 PM EDT
[2018-03-13] MEDS: QUEtiapine 25 MG Tablet PO SCH (20:33)
--- NOTE | 2018-03-14 07:24 | P.PNNEU ---
Subjective Subjective Comments: sr Active Medications: Active Medications Acetaminophen (Tylenol) 650 mg PO Q4H PRN PRN Reason: Temp > 100.4 Allopurinol (Zyloprim) 200 mg PO DAILY [facility] Last Admin: 03/13/18 09:24 Dose: 200 mg Amlodipine Besylate (Norvasc) 2.5 mg PO DAILY [facility] Last Admin: 03/13/18 09:24 Dose: 2.5 mg Aspirin (Ecotrin) 81 mg PO DAILY [facility] Carbamazepine (Tegretol) 400 mg PO TID [facility] Last Admin: 03/13/18 18:33 Dose: 400 mg Clonidine HCl (Catapres) 0.1 mg PO Q6H PRN PRN Reason: SEE LABEL COMMENTS Last Admin: 03/14/18 01:59 Dose: 0.1 mg Enoxaparin Sodium (Lovenox Inj) 40 mg SQ Q24H [facility] Last Admin: 03/13/18 15:59 Dose: 40 mg Erythromycin (Shaheen-Tab) 250 mg PO Q12H [facility] Last Admin: 03/14/18 04:01 Dose: 250 mg Finasteride (Proscar) 5 mg PO DAILY [facility] Last Admin: 03/13/18 09:24 Dose: 5 mg Sodium Chloride (1/2 Normal Saline Inj) 1,000 mls @ 75 mls/hr IV.CONT .[id number] [facility] Last Infusion: 03/14/18 02:16 Dose: Infused Sodium Chloride (Ns Inj) 1,000 mls @ 70 mls/hr IV.CONT .[id number] [facility] Levothyroxine Sodium (Synthroid) 25 mcg PO DAILY@0600 [facility] Last Admin: 03/14/18 05:29 Dose: 25 mcg Lisinopril (Prinivil) 10 mg PO DAILY [facility] Last Admin: 03/13/18 09:24 Dose: 10 mg Metoclopramide HCl (Reglan) 10 mg PO QID [facility] Last Admin: 03/13/18 20:33 Dose: 10 mg Ondansetron HCl (Zofran Inj) 4 mg IV.PUSH Q6H PRN PRN Reason: NAUSEA OR VOMITING Ondansetron HCl (Zofran Odt) 4 mg PO TID PRN PRN Reason: Nausea Pantoprazole Sodium (Protonix) 40 mg PO DAILY [facility] Last Admin: 03/13/18 09:24 Dose: 40 mg Patient Own Medication[ Clomipramine 25 Mg [ Anafranil]] 0 each PO [facility] Potassium Chloride (Klor-Con 10) 10 meq PO DAILY [facility] Last Admin: 03/13/18 09:24 Dose: 10 meq Quetiapine Fumarate (Seroquel) 50 mg PO HS [facility] Last Admin: 03/13/18 20:33 Dose: 50 mg Senna/Docusate Sodium (Bhavna-Colace) 1 tab PO BID PRN PRN Reason: Constipation Sertraline HCl (Zoloft) 100 mg PO DAILY [facility] Last Admin: 03/13/18 09:25 Dose: 100 mg Sodium Chloride (Ns Flush) 2 ml IV.FLUSH PRN PRN PRN Reason: FLUSH AFTER USING IV ACCESS Allergies/Adverse Reactions: Allergies Allergy/AdvReac Type Severity Reaction Status Date / Time propoxyphene Allergy Severe Hives Verified 03/12/18 00:07 *MDRO Multi-Drug Resistant AdvReac Unknown Rash Uncoded 03/12/18 00:07 Organism Physical Exam Vital signs: Vital Signs 03/13/18 08:00 03/13/18 11:48 03/13/18 15:51 Temperature 98.9 F 98.8 F 97.6 F Pulse Rate 75 80 66 Respiratory Rate 16 16 12 Blood Pressure 131/89 106/62 163/99 H Pulse Oximetry 98 98 97 03/13/18 20:00 03/14/18 00:00 03/14/18 03:53 Temperature 98.6 F 98.2 F 98.3 F Pulse Rate 97 H 101 H 81 Respiratory Rate 16 16 16 Blood Pressure 123/83 181/115 H 146/100 H Pulse Oximetry 97 100 98 Intake & Output 03/13/18 03/14/18 03/14/18 18:59 06:59 18:59 Intake Total 1480 / 1480 1000 / 1000 Balance 1480 / 1480 1000 / 1000 Intake: IV 1000 / 1000 1000 / 1000 1/2 Normal Saline Inj 1,000 ML 1000 / 1000 1000 / 1000 @ 75 mls/hr IV.CONT .[id number] [facility] Rx#:[id number] Oral 480 / 480 Other: # Voids 4 # Bowel Movements 1 Narrative: a little hard to awaken moves all bue cogwheel - Urinary Catheter Management Straight Cath placed during this visit: yes Reason for continuing: Not indwelling catheter Insertion date: 03/12/18 Insertion time: 00:46 Objective Laboratory Results - last 24 hr 03/13/18 03/13/18 03/13/18 06:16 06:16 06:16 WBC 7.0 RBC 4.46 L Hgb 12.8 L Hct 40.3 MCV 90.2 MCH 28.8 MCHC 31.9 L RDW 14.1 Plt Count 229 MPV 7.8 Neut % (Auto) 65.5 Lymph % (Auto) 24.6 [place] % (Auto) 7.8 Eos % (Auto) 1.4 Baso % (Auto) 0.7 Neut # (Auto) 4.6 Lymph # (Auto) 1.7 [place] # (Auto) 0.5 Eos # (Auto) 0.1 Baso # (Auto) 0.0 WBC Differential . Differential Comment Auto diff final ESR 13 Sodium 142 Potassium 3.7 Chloride 104 Carbon Dioxide 32.4 H Anion Gap 6 BUN 10 Creatinine 0.89 Estimated GFR Greater than 89 Random Glucose 83 Calcium 9.1 Total Protein (PEP) Vitamin B12 TSH Free T4 ARCHIE Screen RPR 03/13/18 03/13/18 08:40 08:40 WBC RBC Hgb Hct MCV MCH MCHC RDW Plt Count MPV Neut % (Auto) Lymph % (Auto) [place] % (Auto) Eos % (Auto) Baso % (Auto) Neut # (Auto) Lymph # (Auto) [place] # (Auto) Eos # (Auto) Baso # (Auto) WBC Differential Differential Comment ESR Sodium Potassium Chloride Carbon Dioxide Anion Gap BUN Creatinine Estimated GFR Random Glucose Calcium Total Protein (PEP) 6.4 Vitamin B12 572 TSH 2.700 Free T4 0.99 ARCHIE Screen Neg RPR Nonreactive Microbiology 03/12/18 00:20 Aerobic Blood Culture - Preliminary Blood - Peripheral No growth in 1 day Anaerobic Blood Culture - Preliminary No growth in 1 day 03/12/18 00:25 Aerobic Blood Culture - Preliminary Blood - Peripheral No growth in 1 day Anaerobic Blood Culture - Preliminary No growth in 1 day Review/Management - Review/Management Plan: imp r mca cva small [id number] fu [id number] echo and holter check ldl eeg neg cbz 10.7 sr overnoc stafrt sinemet with some parkinsonism and lower seroquel oversedated this am PT mri some nild inc vents not severe ? some tranependymal flow?
[2018-03-14] MEDS: Sod Chloride 0.9% Inj 1,000 ML IV.CONT SCH (07:56)
[2018-03-14] MEDS: Finasteride 5 MG Tablet PO SCH (08:48)
[2018-03-14] MEDS: Lisinopril 10 MG Tablet PO SCH (08:48)
[2018-03-14] MEDS: Metoclopramide 10 MG Tablet PO SCH ×4 (08:48→20:24)
[2018-03-14] MEDS: Allopurinol 100 MG Tablet PO SCH (08:48)
[2018-03-14] MEDS: Sertraline 100 MG Tablet PO SCH (08:48)
[2018-03-14] MEDS: carBAMazepine 200 MG Tablet PO SCH ×3 (08:48→18:22)
[2018-03-14] MEDS: amLODIPine 5 MG Tablet PO SCH (08:49)
[2018-03-14 11:48] LABS: Chol/HDL Ratio 3.14 Ratio; HDL Cholesterol 52.1 mg/dL (40.0-60.0)
--- NOTE | 2018-03-14 13:03 | MR ---
EXAM DATE: 03/14/2018 12:57 PM EDT AGE/SEX: 72 years / Male INDICATIONS: CVA. Altered mental status. CLINICAL DATA: This is the patient's initial encounter. Patient reports that signs and symptoms have been present for 1 day and indicates a pain score of 0/10. MEDICAL/SURGICAL HISTORY: Hypertension. Seizures. Dementia. . TURP. COMPARISON: [facility] [place], MR HEAD W & W/O CONTRAST, 03/13/2018. [facility] [place], MRA NECK W CONTRAST, 03/14/2018. [facility] [place] , CT BRAIN W/O CONTRAST, 03/13/2017. . TECHNIQUE: 3D [id number] MRA was performed. Source images, multiplanar STS MIP, and 3D volum e MIP reconstructions were reviewed. FINDINGS: There is excellent visualization of the major intracranial arteries out to the second-order branch ve ssels. The basilar artery is ectatic and tortuous. There is motion artifact. There does appear to be diminutive signal within an insular branch of the right middle cerebral artery. CONCLUSION: 1. Ectatic and tortuous basilar artery. 2. Diminutive flow within right middle cerebral artery insular branch. Electronically signed by: Osmin Downey MD 03/14/2018 1:02 PM EDT
--- NOTE | 2018-03-14 13:33 | ECHRPT ---
Indication: CVA / TIA CONCLUSIONS Normal left ventricular size. Mild concentric left ventricular hypertrophy. The left ventricular systolic function is low normal with an estimated ejection fraction in the rang e of 50- 55%. Trace mitral valve regurgitation. Trace aortic valve regurgitation. There is trace tricuspid valve regurgitation. The estimated pulmonary arterial pressure is 33 mmHg. The inferior vena cava was not well visualized. BP: / HR: Rhythm: MEASUREMENTS (Male / Female) Normal Values Technical Quality:Technically difficult study 2D ECHO LV Diastolic Diameter PLAX 4.8 cm 4.2 - 5.9 / 3.9 - 5.3 cm LV Systolic Diameter PLAX 3.4 cm IVS Diastolic Thickness 1.3 cm 0.6 - 1.0 / 0.6 - 0.9 cm LVPW Diastolic Thickness 1.3 cm 0.6 - 1.0 / 0.6 - 0.9 cm LV Relative Wall Thickness 0.5 LVOT Diameter 2.1 cm Aortic Root Diameter 3.3 cm LA Systolic Diameter LX 3.2 cm 3.0 - 4.0 / 2.7 - 3.8 cm DOPPLER AV Peak Velocity 137.0 cm/s AV Peak Gradient 7.5 mmHg AI Peak Velocity 358.0 cm/s AI Peak Gradient 51.3 mmHg AI Pressure Half Time 961.0 ms LVOT Peak Velocity 133.0 cm/s LVOT Peak Gradient 7.1 mmHg AV Area Cont Eq pk 3.4 cm Mitral E Point Velocity 46.4 cm/s Mitral A Point Velocity 50.8 cm/s Mitral E to A Ratio 0.9 LV E' Lateral Velocity 8.9 cm/s Mitral E to LV E' Lateral Ratio 5.2 LV E' Septal Velocity 8.1 cm/s Mitral E to LV E' Septal Ratio 5.7 TR Peak Velocity 237.0 cm/s TR Peak Gradient 22.5 mmHg Right Atrial Pressure 10.0 mmHg Pulmonary Artery Systolic Pressu 32.5 mmHg Right Ventricular Systolic Press 32.5 mmHg PV Peak Velocity 82.5 cm/s PV Peak Gradient 2.7 mmHg FINDINGS LEFT VENTRICLE Normal left ventricular size. Mild concentric left ventricular hypertrophy. The left ventricular systolic function is low normal with an estimated ejection fraction in the rang e of 50- 55%. No regional wall motion abnormalities are present. RIGHT VENTRICLE Normal right ventricular size and systolic function. LEFT ATRIUM The left atrial size is normal. RIGHT ATRIUM The right atrial size is normal. A prominent eustachian valve is observed in the right atrium (lore gn finding). ATRIAL SEPTUM Normal atrial septal thickness without atrial level shunting by limited color doppler interrogation. AORTA The aortic root and proximal ascending aorta are normal in size on limited imaging. MITRAL VALVE Structurally normal mitral valve. Trace mitral valve regurgitation. AORTIC VALVE Trileaflet aortic valve. Aortic valve sclerosis is present. Trace aortic valve regurgitation. No aortic valve stenosis. TRICUSPID VALVE There is trace tricuspid valve regurgitation. The estimated pulmonary arterial pressure is 33 mmHg. PULMONARY VALVE No pulmonary valve regurgitation or stenosis. VESSELS The inferior vena cava was not well visualized. PERICARDIUM No pericardial effusion. Vernon Reynolds (Electronically Signed) Final Date:14 March 2018 13:31
--- NOTE | 2018-03-14 13:37 | MR ---
EXAM DATE: 03/14/2018 1:29 PM EDT AGE/SEX: 72 years / Male INDICATIONS: Stroke. Altered mental status. CLINICAL DATA: This is the patient's subsequent encounter. Patient reports that signs and symptoms h ave been present for 1 day and indicates a pain score of 0/10. MEDICAL/SURGICAL HISTORY: Hypertension. Seizures. Dementia. Renal disease. . TURP. COMPARISON: [facility] [place], [place] CERVICAL SPINE W/O CONTRAST, 03/13/2017. . TECHNIQUE: 10 ml Gadavist (gadobutrol) contrast infused MRA (single exam dose) of the extracranial circulation was performed using a neurovascular coil. Postprocessing was performed, including rotati ng sub-volume maximum intensity projections of each carotid artery, rotating full-volume maximum inte nsity projections of both carotid arteries, sagittal and coronal sliding thin-slab reformations of ea ch carotid artery, and left oblique sliding thin-slab reformation through the aortic arch to include the origin of the arch branch vessels. FINDINGS: Aortic Arch : There is a three-vessel origin of the great vessels from the aorta. No evidence of o stial narrowing. Right Carotid : The common carotid artery is intact. The carotid bulb has a normal configuration wi thout ulceration or narrowing. The internal carotid artery lumen is smooth without stenosis. The ex ternal carotid artery is intact. Left Carotid : The common carotid artery is intact. The carotid bulb has a normal configuration wit hout ulceration or narrowing. The internal carotid artery lumen is smooth without stenosis. The ext ernal carotid artery is intact. Vertebrals : The vertebral arteries are patent bilaterally, left side dominant. No stenotic lesions are seen. Prominent dolichoectasia of the basilar artery CONCLUSION: No evidence of carotid stenosis. Percent stenosis is calculated using the diameter of the stenotic region over the diameter of the nor mal distal internal carotid artery Electronically signed by: Cornel Berry MD 03/14/2018 1:36 PM EDT
--- NOTE | 2018-03-14 15:53 | P.CONPAL ---
Consult Service: Palliative Care Requesting Physician: Clayton Staley Reason for Consult: a. To assist with evaluation and management of symptoms including: confusion b. To assist medical decision maker(s) with: better understanding of current medical conditions; weighing benefits/burdens of medical treatment options; making medical treatment decisions. Primary Care Provider: UNKNOWN History of Present Illness History of Present Illness: Mr. 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 Upon arrival in the emergency department the patient had a Glascow coma score of 10. He was awake, verbal, but would answer "no" to most questions. Other than being diaphoretic, exam in the emergency department appeared unremarkable. The patient was first diagnosed with a seizure disorder in November 2009 after he suffered what seemed to be, by family description, a generalized tonic-clonic convulsion.. He was hospitalized at this facility. Brain MRI at that time was negative except for some atrophy. EEG was negative for seizure activity. The patient has been on anti-seizure medication since that time. The patient had a 1 month hospitalization at this facility in July 2014 when his found him lying on the floor next to their bed incontinent of urine. There was no witnessed seizure activity at that time. The patient was once again awake and alert when he arrived at the emergency department but was also quite agitated, speaking incoherently, and trying to pull out tubes and lines. That hospitalization was complicated by a Clostridium difficile colitis and a Pseudomonas urinary tract infection. He required time in the intensive care unit intubated and mechanically ventilated. reports that the patient has had progressive dementia. The patient's baseline status finds him bedbound in the senior living. He is incontinent of bowel and bladder. He does recognize loved ones. He is able to put together some short sentences. He retains some long-term memory but has essentially no short-term memory. He is persistently disoriented to date, time, president, etc. reports he has lost about 95 pounds of weight over the last 2 years. also reports that the patient's PTSD has been quite severe. 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 He has had significant depression, anxiety, distressing flashbacks, etc. The patient has had agent orange exposure but is unaware of any specific symptoms related to that exposure. The patient is [facility] 70[facility]. Initial diagnostic testing here in the emergency department noted the following: * CBC showed WBC 13.1; hemoglobin 14.0; platelet count 249 * Chemistry panel unremarkable except for a potassium of 3.4; glucose 114; and albumin of 3.3 * Urinalysis remarkable only for trace leukocyte esterase * Carbamazepine level was 10.7 * EEG showed occasional ventricular premature complexes but otherwise sinus rhythm. * Chest x-ray showed cardiomegaly; mild basilar atelectasis. * CT of the head showed no acute findings compared with March 2017 The patient was admitted to the hospitalist service. Neurology was consulted. An MRI of the head performed on 03/13/2018 revealed an acute right frontal infarct. MRAs of the head and neck were unremarkable. Echocardiogram was unremarkable. Neurology did not feel adjustments were needed to seizure recommendations. He felt the patient was oversedated and recommended a decrease in the quetiapine dose. He also recommended that Sinemet be started for some parkinsonism. The patient was evaluated by speech therapy on 03/13/2018. A swallowing evaluation was performed. Patient was cleared for regular consistency solids and nectar thick liquids. He showed signs and symptoms of aspiration on clear liquids. At time of my visit, patient awakens to voice and exam. He is not following commands for me. He is not responding to my questions. The patient's sister-- Hermelinda -- is at the bedside. . Function/Cognitive Trajectory: As noted above, patient has been a two-year resident of the [facility] senior living locally. He spends the vast majority of time in his bed. He gets to the wheelchair with staff lift him up and put them in the chair. He is incontinent of bowel and bladder. He is recognizing loved ones. He is normally able to say a few words. There is essentially no short-term memory. He does have some long-term memory. He has lost 95 pounds in the last 2 years so most of that was during the first year. does not believe he has any chronic pain issues. He does have some vision problems. ROS Patient is unable to provide his own review of systems. Review of systems was obtained entirely from the patient's . A 12 part review of systems was negative except for the following: * Decreased vision in the right eye. * Snoring attributed to sleep apnea (patient has not been using a CPAP machine) * Periodic constipation. * Frequent screaming and crying out attributed to his PTSD * Incontinence of bowel and bladder Past Medical Hx * Hypertension * Hyperlipidemia * Sleep apnea * BPH now post surgery * Seizure disorder * PTSD * Anxiety * Depression Surgical history * Surgery for benign prostate disease. Family History * No known family history of stroke or seizure. Review of Systems All other systems reviewed negative except as stated in HPI PMFSH - History History Provided By: Family Member - Medical History Medical History: Medical History (Last Updated 03/14/18 @ 16:47 by Jack Crum MD) Depression (Acute) Anxiety (Chronic) PTSD (post-traumatic stress disorder) (Chronic) Hyperlipidemia (Acute) Seizure disorder (Chronic) Caregiver unable to obtain copy of document (Acute) Hypertension (Chronic) Dementia (Chronic) - Surgical History Surgical History: Surgical History (Last Updated 03/14/18 @ 16:47 by Jack Crum MD) History of prostate surgery (Acute) - Family History Family History: Family History (Last Updated 03/14/18 @ 16:49 by Jack Crum MD) Father Family history of acute myocardial infarction Sister No problems noted. Mother Family history of breast cancer Other Family history non-contributory Family history of cancer - Tobacco History Second Hand Smoke Exposure: No Tobacco Use In Past 30 Days: No Smoking Status: Never smoker - Alcohol History How Often Do You Have a Drink Containing Alcohol: Never - Substance Use History Substance History: No History of Abuse - Travel History Recent Travel in the [place] Within the Last 8 Weeks: No Recent Travel Out of the Country Within the Last 8 Weeks: No - Immunization History Tetanus Immunization: Unable to Assess Hx Influenza Vaccine This Season: Unable to Assess Medications and Allergies Active Medications: Active Medications Acetaminophen (Tylenol) 650 mg PO Q4H PRN PRN Reason: Temp > 100.4 Allopurinol (Zyloprim) 200 mg PO DAILY [facility] Last Admin: 03/14/18 08:48 Dose: 200 mg Amlodipine Besylate (Norvasc) 2.5 mg PO DAILY [facility] Last Admin: 03/14/18 08:49 Dose: 2.5 mg Aspirin (Ecotrin) 81 mg PO DAILY [facility] Last Admin: 03/14/18 08:48 Dose: 81 mg Carbamazepine (Tegretol) 400 mg PO TID [facility] Last Admin: 03/14/18 14:23 Dose: Not Given Carbidopa/Levodopa (Sinemet 25/100 Mg) 1 tab PO TID [facility] Last Admin: 03/14/18 14:23 Dose: Not Given Clonidine HCl (Catapres) 0.1 mg PO Q6H PRN PRN Reason: SEE LABEL COMMENTS Last Admin: 03/14/18 01:59 Dose: 0.1 mg Enoxaparin Sodium (Lovenox Inj) 40 mg SQ Q24H [facility] Last Admin: 03/13/18 15:59 Dose: 40 mg Erythromycin (Shaheen-Tab) 250 mg PO Q12H [facility] Last Admin: 03/14/18 04:01 Dose: 250 mg Finasteride (Proscar) 5 mg PO DAILY [facility] Last Admin: 03/14/18 08:48 Dose: 5 mg Sodium Chloride (Ns Inj) 1,000 mls @ 70 mls/hr IV.CONT .[id number] [facility] Last Admin: 03/14/18 07:56 Dose: 70 mls/hr Levothyroxine Sodium (Synthroid) 25 mcg PO DAILY@0600 [facility] Last Admin: 03/14/18 05:29 Dose: 25 mcg Lisinopril (Prinivil) 10 mg PO DAILY [facility] Last Admin: 03/14/18 08:48 Dose: 10 mg Metoclopramide HCl (Reglan) 10 mg PO QID [facility] Last Admin: 03/14/18 14:23 Dose: Not Given Ondansetron HCl (Zofran Inj) 4 mg IV.PUSH Q6H PRN PRN Reason: NAUSEA OR VOMITING Ondansetron HCl (Zofran Odt) 4 mg PO TID PRN PRN Reason: Nausea Pantoprazole Sodium (Protonix) 40 mg PO DAILY [facility] Last Admin: 03/14/18 08:48 Dose: 40 mg Patient Own Medication[ Clomipramine 25 Mg [ Anafranil]] 0 each PO [facility] Potassium Chloride (Klor-Con 10) 10 meq PO DAILY [facility] Last Admin: 03/14/18 08:49 Dose: 10 meq Quetiapine Fumarate (Seroquel) 25 mg PO [facility] Senna/Docusate Sodium (Bhavna-Colace) 1 tab PO BID PRN PRN Reason: Constipation Sertraline HCl (Zoloft) 100 mg PO DAILY [facility] Last Admin: 03/14/18 08:48 Dose: 100 mg Sodium Chloride (Ns Flush) 2 ml IV.FLUSH PRN PRN PRN Reason: FLUSH AFTER USING IV ACCESS Allergies Allergy/AdvReac Type Severity Reaction Status Date / Time propoxyphene Allergy Severe Hives Verified 03/12/18 00:07 *MDRO Multi-Drug Resistant AdvReac Unknown Rash Uncoded 03/12/18 00:07 Organism Home Medications Medication Instructions Recorded Confirmed Type allopurinol 200 mg PO DAILY 03/12/18 03/12/18 History alprazolam 1 mg PO Q8HR 03/12/18 03/12/18 History amlodipine 2.5 mg PO DAILY 03/12/18 03/12/18 History carbamazepine 400 mg PO TID 03/12/18 03/12/18 History clomipramine [Anafranil] 25 mg PO HS 03/12/18 03/12/18 History erythromycin 250 mg PO Q12H 03/12/18 03/12/18 History finasteride 5 mg PO DAILY 03/12/18 03/12/18 History furosemide 20 mg PO DAILY 03/12/18 03/12/18 History levothyroxine 25 mcg PO DAILY 03/12/18 03/12/18 History lisinopril 10 mg PO DAILY 03/12/18 03/12/18 History metoclopramide HCl 10 mg PO QID 03/12/18 03/12/18 History multivitamin,[id number] 1 tab PO DAILY 03/12/18 03/12/18 History [Thera-M] omeprazole 40 mg PO DAILY 03/12/18 03/12/18 History ondansetron 4 mg PO TID PRN 03/12/18 03/12/18 History potassium chloride [Klor-Con 10] 1 tab PO DAILY 03/12/18 03/12/18 History quetiapine [Seroquel] 50 mg PO HS 03/12/18 03/12/18 History sennosides-docusate sodium [Senna 1 tab PO BID PRN 03/12/18 03/12/18 History with Docusate Sodium] sertraline 100 mg PO DAILY 03/12/18 03/12/18 History Advance Directives Advance Directives Date on File: 02/12/14 (We have a health care surrogate on file. There was apparently a living will written on the same date. this is reportedly on file at the [facility]. ) Living Will: Yes Healthcare Surrogate: Yes Health Care Surrogate Name and Number: Jenna Fowler [phone] Power of Retoucher Photoengraving: No Documented care wishes: reports that Living Will asks for DNR status. . Today's verbally stated goals: Patient is unable to verbally discuss health care goals/preferences. There is no reasonable probability that he will regain capacity to do so. . Family/friends goals: Spouse (who is also the health care surrogate) feels that patient would not want to be resuscitated, but would want all other aggressive care. . Ethical and Legal Issues: Patient is currently incapacitated to make his own healthcare decisions. There is no reasonable probability that he will recover such capacity. . Physical Exam Vital Signs: Vital Signs - 24 hr 03/13/18 15:51 03/13/18 20:00 03/14/18 00:00 Temperature 97.6 F 98.6 F 98.2 F Pulse Rate 66 97 H 101 H Respiratory Rate 12 16 16 Blood Pressure 163/99 H 123/83 181/115 H Pulse Oximetry 97 97 100 03/14/18 03:53 03/14/18 08:18 03/14/18 09:01 Temperature 98.3 F 97.6 F Pulse Rate 81 53 L Respiratory Rate 16 16 Blood Pressure 146/100 H 140/88 Pulse Oximetry 98 97 I&O: Intake & Output 03/12/18 03/13/18 03/14/18 03/15/18 06:59 06:59 06:59 06:59 Intake Total 1120 / 1120 2480 / 2480 Balance 1120 / 1120 2480 / 2480 Weight 106.594 kg 106.594 kg 106.594 kg Physical Exam: CONSTITUTIONAL/GENERAL: This is an adequately nourished patient. Arouses easily to voice and exam. Tracks me, but does not respond verbally to my questions and is currently not following commands. No seizure activity noted. TUBES/LINES/DRAINS: Connell catheter. SKIN: No jaundice, rashes, or lesions. No wounds seen anteriorly. Skin temperature appropriate. Not diaphoretic. HEAD: Atraumatic. Normocephalic. EYES: Pupils equal and round and reactive. Extraocular motions intact. No scleral icterus. No injection or drainage. Fundi not examined. ENT: Turns to voice--otherwise unable to assess hearing. Nose without bleeding or purulent drainage. Throat without visible erythema, exudates, masses, or lesions. NECK: Trachea midline. Supple, nontender. No palpable thyroid enlargement or nodularity. CARDIOVASCULAR: Regular rate and rhythm without murmurs, gallops, or rubs. No JVD. Peripheral pulses symmetric. RESPIRATORY/CHEST: Symmetric, unlabored respirations. Clear to auscultation. Breath sounds equal bilaterally. No wheezes, rales, or rhonchi. GASTROINTESTINAL: Abdomen soft, non-tender, nondistended. No hepato-splenomegaly , or palpable masses. No guarding. Bowel sounds present. GENITOURINARY: Without palpable bladder distension. Connell catheter in place. MUSCULOSKELETAL: Extremities without clubbing, cyanosis, or edema. No joint tenderness or effusion noted. No mottling or clubbing. LYMPHATICS: No palpable cervical or supraclavicular adenopathy. NEUROLOGICAL: Sleepy, but quickly arouses to voice and exam. Does not answer my questions. Not following simple commands. Moves all extremities. PSYCHIATRIC: Difficult to assess as patient is nonverbal with me. No obvious hallucinations or psychotic symptoms. . Diagnostic Tests Laboratory: Laboratory Results - last 72 hr 03/12/18 03/12/18 03/12/18 00:25 00:25 00:25 WBC 13.1 H RBC 4.80 Hgb 14.0 Hct 42.9 MCV 89.4 MCH 29.2 MCHC 32.6 RDW 14.5 Plt Count 249 MPV 7.7 Neut % (Auto) 81.5 H Lymph % (Auto) 12.6 [place] % (Auto) 4.9 Eos % (Auto) 0.6 Baso % (Auto) 0.4 Neut # (Auto) 10.7 H Lymph # (Auto) 1.7 [place] # (Auto) 0.6 Eos # (Auto) 0.1 Baso # (Auto) 0.1 WBC Differential . Differential Comment Auto diff final ESR Sodium 144 Potassium 3.4 L Chloride 107 Carbon Dioxide 31.7 Anion Gap 5 BUN 12 Creatinine 0.87 Estimated GFR Greater than 89 Random Glucose 114 H Lactic Acid 0.9 Calcium 8.5 Total Bilirubin 0.3 AST 8 L ALT 15 Alkaline Phosphatase 59 Troponin I Less than 0.02 L Total Protein 7.0 Total Protein (PEP) Albumin 3.3 L Triglycerides Cholesterol LDL Cholesterol, Calc HDL Cholesterol Cholesterol/HDL Ratio Vitamin B12 TSH Free T4 Urine Color Urine Clarity Urine pH Ur Specific [place] Urine Protein Urine Glucose (UA) Urine Ketones Urine Occult Blood Urine Nitrate Urine Bilirubin Urine Urobilinogen Ur Leukocyte Esterase Urine RBC Urine WBC Ur Squamous Epith Cells Hyaline Casts Urine Mucus Micro UA Comment Ur Microscopic Review Urine Culture Comments Carbamazepine ARCHIE Screen RPR 03/12/18 03/12/18 03/13/18 00:25 00:50 06:16 WBC 7.0 RBC 4.46 L Hgb 12.8 L Hct 40.3 MCV 90.2 MCH 28.8 MCHC 31.9 L RDW 14.1 Plt Count 229 MPV 7.8 Neut % (Auto) 65.5 Lymph % (Auto) 24.6 [place] % (Auto) 7.8 Eos % (Auto) 1.4 Baso % (Auto) 0.7 Neut # (Auto) 4.6 Lymph # (Auto) 1.7 [place] # (Auto) 0.5 Eos # (Auto) 0.1 Baso # (Auto) 0.0 WBC Differential . Differential Comment Auto diff final ESR Sodium Potassium Chloride Carbon Dioxide Anion Gap BUN Creatinine Estimated GFR Random Glucose Lactic Acid Calcium Total Bilirubin AST ALT Alkaline Phosphatase Troponin I Total Protein Total Protein (PEP) Albumin Triglycerides Cholesterol LDL Cholesterol, Calc HDL Cholesterol Cholesterol/HDL Ratio Vitamin B12 TSH Free T4 Urine Color Yellow Urine Clarity Hazy H Urine pH 6.0 Ur Specific [place] 1.015 Urine Protein 100 H Urine Glucose (UA) Negative Urine Ketones Trace H Urine Occult Blood Negative Urine Nitrate Negative Urine Bilirubin Negative Urine Urobilinogen Less than 2 Ur Leukocyte Esterase Trace H Urine RBC 1 Urine WBC 5 Ur Squamous Epith Cells 1 Hyaline Casts 1 Urine Mucus Few H Micro UA Comment Culture not ind Ur Microscopic Review Not Reportable Urine Culture Comments Culture not ind Carbamazepine 10.7 ARCHIE Screen RPR 03/13/18 03/13/18 03/13/18 06:16 06:16 08:40 WBC RBC Hgb Hct MCV MCH MCHC RDW Plt Count MPV Neut % (Auto) Lymph % (Auto) [place] % (Auto) Eos % (Auto) Baso % (Auto) Neut # (Auto) Lymph # (Auto) [place] # (Auto) Eos # (Auto) Baso # (Auto) WBC Differential Differential Comment ESR 13 Sodium 142 Potassium 3.7 Chloride 104 Carbon Dioxide 32.4 H Anion Gap 6 BUN 10 Creatinine 0.89 Estimated GFR Greater than 89 Random Glucose 83 Lactic Acid Calcium 9.1 Total Bilirubin AST ALT Alkaline Phosphatase Troponin I Total Protein Total Protein (PEP) 6.4 Albumin Triglycerides Cholesterol LDL Cholesterol, Calc HDL Cholesterol Cholesterol/HDL Ratio Vitamin B12 572 TSH 2.700 Free T4 0.99 Urine Color Urine Clarity Urine pH Ur Specific [place] Urine Protein Urine Glucose (UA) Urine Ketones Urine Occult Blood Urine Nitrate Urine Bilirubin Urine Urobilinogen Ur Leukocyte Esterase Urine RBC Urine WBC Ur Squamous Epith Cells Hyaline Casts Urine Mucus Micro UA Comment Ur Microscopic Review Urine Culture Comments Carbamazepine ARCHIE Screen RPR 03/13/18 03/14/18 08:40 09:45 WBC RBC Hgb Hct MCV MCH MCHC RDW Plt Count MPV Neut % (Auto) Lymph % (Auto) [place] % (Auto) Eos % (Auto) Baso % (Auto) Neut # (Auto) Lymph # (Auto) [place] # (Auto) Eos # (Auto) Baso # (Auto) WBC Differential Differential Comment ESR Sodium Potassium Chloride Carbon Dioxide Anion Gap BUN Creatinine Estimated GFR Random Glucose Lactic Acid Calcium Total Bilirubin AST ALT Alkaline Phosphatase Troponin I Total Protein Total Protein (PEP) Albumin Triglycerides 72 Cholesterol 164 LDL Cholesterol, Calc 98 HDL Cholesterol 52.1 Cholesterol/HDL Ratio 3.14 Vitamin B12 TSH Free T4 Urine Color Urine Clarity Urine pH Ur Specific [place] Urine Protein Urine Glucose (UA) Urine Ketones Urine Occult Blood Urine Nitrate Urine Bilirubin Urine Urobilinogen Ur Leukocyte Esterase Urine RBC Urine WBC Ur Squamous Epith Cells Hyaline Casts Urine Mucus Micro UA Comment Ur Microscopic Review Urine Culture Comments Carbamazepine ARCHIE Screen Neg RPR Nonreactive Result Diagrams: 03/13/18 06:16 03/13/18 06:16 Microbiology: Microbiology 03/12/18 00:20 Aerobic Blood Culture - Preliminary Blood - Peripheral No growth in 2 days Anaerobic Blood Culture - Preliminary No growth in 2 days 03/12/18 00:25 Aerobic Blood Culture - Preliminary Blood - Peripheral No growth in 2 days Anaerobic Blood Culture - Preliminary No growth in 2 days Imaging: Chest X-Ray 03/12/18 01:20 CONCLUSION: Cardiomegaly. Mild basilar atelectasis. No significant effusion. Head CT 03/12/18 04:33 CONCLUSION: 1. No acute findings compared with March 2017. . Head MRI 03/13/18 07:53 CONCLUSION: Ventriculomegaly and white matter disease with acute right frontal infarct. Neck MRA 03/14/18 00:00 CONCLUSION: No evidence of carotid stenosis. Percent stenosis is calculated using the diameter of the stenotic region over the diameter of the normal distal internal carotid artery Head MRA 03/14/18 07:17 There is excellent visualization of the major intracranial arteries out to the second-order branch vessels. The basilar artery is ectatic and tortuous. There is motion artifact. There does appear to be diminutive signal within an insular branch of the right middle cerebral artery. CONCLUSION: 1. Ectatic and tortuous basilar artery. 2. Diminutive flow within right middle cerebral artery insular branch. Patient/Family Conference Present at Family Conference: Spoke with sister (Hermelinda) for approximately 15 minutes at bedside. spoke with spouse via phone for approximately 30 minutes. . Family Conference Time: 45 Family Conference Location: Bedside, Telephone Issues Discussed: * Palliative care role, purpose, approach * Additional medical, psychosocial, and spiritual history * Patients general health, functional status, and cognitive changes in the months leading up to the current hospitalization * Family understanding of the current medical problems * Family understanding of prognosis * Patients goals of care as best understood from advance directives and/or conversations and/or values * Current medical treatment options and benefits/burdens of those options * Questions answered to the best of my ability * Palliative care contact information provided Assessment and Plan - Disease Oriented Problem List (1) Stroke Comment: Small, acute Right MCA stroke per MRI (2) Dementia Comment: Longstanding -- probably Alzheimer's disease. (3) Seizure disorder (4) PTSD (post-traumatic stress disorder) (5) Hyperlipidemia (6) Hypertension - Symptom Scale (1) Pain 0-10 Scale: Unable to quantify (2) Depression 0-10 Scale: Unable to quantify Comment: Patient has long-standing depression attributed to his PTSD. (3) Anxiety 0-10 Scale: Unable to quantify Comment: Patient has long-standing anxiety and agitation his PTSD Pertinent Non-Medical Issues: Psychosocial: Patient is a [place]. He is an [employer] and served in combat in [place]. PTSD has played an important role in his life. 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 he has been to his -- Jenna --for about 21 years. The patient has 2 biological children from prior relationships. There is a son age 45. There is a daughter in her 20s from whom he is estranged. The patient is also close to Jenna's two sons. 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 His son is a [employer]terc[employer] planner intern. Spiritual support will be coming from his own christianity. Legal: We have a copy of the health care surrogate. says there is a living will on file at the patient's senior living. Ethical issues impacting care: Patient is incapacitated to make his own healthcare decisions. There is no reasonable probability that he will recover capacity to do so. Important Contacts: Jenna Fowler (spouse and health care surrogate) [phone]. . Prognosis: Patient has suffered a small stroke without apparent significant neurological deficit. It certainly seems like he will survive this hospitalization and return to the senior living. According to he will not be able to cooperate with physical therapy and therefore rehabilitation is unlikely to be helpful. He does have some dysphagia for thin liquids. Aspiration has become more likely. Also, according to , patient has lost about 95 pounds of weight over the last 2 years. She also reports some progressive worsening of dementia. Prognosis is unclear at this time. Much will depend upon avoiding complications of prolonged bedbound status including aspiration pneumonia, skin breakdown, urinary tract infections, etc. Also, dependent upon preventing further stroke and seizures. Goals are currently aggressive other than resuscitation. At such time that goals would become more comfort oriented, patient would likely be a candidate for hospice care. . Plan: == Code Status: Per conversation with patient's spouse (also the designated health care surrogate) the patient desires DNR status. == Decision Making: The patient is incapacitated to make his own healthcare decisions. There is no reasonable probability he will ever recover such capacity. . == Goals of medical treatment: The healthcare surrogate is quite clear that patient would want all aggressive care short of attempted resuscitations. == Symptoms: * Pain: reports that patient has not had any significant prehospitalization pain syndromes. It did not appear he was on any pain medications in the senior living setting. Given his prolonged bedbound status in the senior living he probably has an element of musculoskeletal discomfort that may be contributing to periodic agitation. Normally in these cases we recommend acetaminophen 650 mg scheduled 3 times daily. * Anxiety/Depression: Patient has long-standing PTSD and reports that anxiety and depression have been a large part of this. At this point in his dementia, patient is unable to verbalize the anxiety and depression and simply calls out. Currently on sertraline and quetiapine in his senior living. * Agitation: This may also be due to the patient's underlying PTSD. As noted above, as patient is unable to verbalize how he feels, would want to make sure he is not painful. Given neurologist is now considering parkinsonism, and given some of the reported symptoms of his PTSD, one might consider Lewy body dementia. == Palliative care social media campaign manager will attempt to procure a copy of the Living Will from [facility]. == If agitation and screaming appears more of a evening/night phenomenon, may want to consider scheduling melatonin. == Patient has had prostate surgery and has been incontinent since. I assume urine flow is good post surgery. I can't tell if he still needs his finasteride. 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 . Appreciation Thank you for the opportunity to participate in the care of Aman Fowler. Attestation Attestation: To help prompt me to consider important information that might be impacting today's encounter and assessment, information from prior notes written by myself or my colleagues may have been "brought forward" into today's note. My signature on this note, however, is an attestation that I personally performed the exam, history, and/or decision-making noted today, and, unless otherwise indicated, the interactions with patient, family, and staff as well as the review of records all occurred today. I also attest that the listed assessment and stated plan reflect my best clinical judgment today based on the combination of historical information, prior notes, and today's exam/ interactions. When time spent is documented, it refers only to time spent today by the signer, or if indicated, combined time spent today by collaborating physician/nurse practitioner.
[2018-03-14] MEDS: Enoxaparin Inj 40 MG/0.4 ML Syringe SQ SCH (17:00)
[2018-03-14] MEDS ORDERED: Gadobutrol PF 10 MMOL/10 ML Vial (for RAD) IV.SIG ONE (17:09)
--- NOTE | 2018-03-14 17:22 | P.PN ---
Subjective Interval history: Patient is seen lying exam prior to MRA study. He has been medicated for study and is very sleepy. No family members are present in room. Nurse reports no adverse events. Physical Exam Vital signs: Vital Signs 03/13/18 20:00 03/14/18 00:00 03/14/18 03:53 Temperature 98.6 F 98.2 F 98.3 F Pulse Rate 97 H 101 H 81 Respiratory Rate 16 16 16 Blood Pressure 123/83 181/115 H 146/100 H Pulse Oximetry 97 100 98 03/14/18 08:18 03/14/18 09:01 03/14/18 15:57 Temperature 97.6 F 98.6 F Pulse Rate 53 L 69 Respiratory Rate 16 18 Blood Pressure 140/88 116/73 Pulse Oximetry 97 99 Intake & Output 03/13/18 03/14/18 03/14/18 18:59 06:59 18:59 Intake Total 1480 / 1480 1000 / 1000 Balance 1480 / 1480 1000 / 1000 Weight 106.594 kg Intake: IV 1000 / 1000 1000 / 1000 1/2 Normal Saline Inj 1,000 ML 1000 / 1000 1000 / 1000 @ 75 mls/hr IV.CONT .[id number] [facility] Rx#:[id number] Oral 480 / 480 Other: # Voids 4 # Bowel Movements 1 Narrative: GENERAL: Well-nourished, well-developed adult male in no obvious distress. SKIN: Warm and dry. HEAD: Atraumatic. Normocephalic. CARDIOVASCULAR: Regular rate and rhythm. RESPIRATORY: No accessory muscle use. Clear to auscultation. Breath sounds equal bilaterally. GASTROINTESTINAL: Abdomen soft, non-tender, non-distended. Positive bowel sounds. MUSCULOSKELETAL: Extremities without clubbing, cyanosis, or edema. No obvious deformities. NEUROLOGICAL: Lethargic. Limited neurological exam as patient will not follow commands. PSYCHIATRIC: Severe dimension; poor historian. - Urinary Catheter Management Straight Cath placed during this visit: yes Reason for continuing: Not indwelling catheter Insertion date: 03/12/18 Insertion time: 00:46 Results - Labs CBC & Chem 7: 03/13/18 06:16 03/13/18 06:16 Laboratory Results - last 24 hr 03/14/18 09:45 Triglycerides 72 Cholesterol 164 LDL Cholesterol, Calc 98 HDL Cholesterol 52.1 Cholesterol/HDL Ratio 3.14 Microbiology 03/12/18 00:20 Blood - Peripheral Aerobic Blood Culture - Preliminary No growth in 2 days 03/12/18 00:20 Blood - Peripheral Anaerobic Blood Culture - Preliminary No growth in 2 days 03/12/18 00:25 Blood - Peripheral Aerobic Blood Culture - Preliminary No growth in 2 days 03/12/18 00:25 Blood - Peripheral Anaerobic Blood Culture - Preliminary No growth in 2 days - Imaging Impressions Head MRI 03/13/18 07:53 CONCLUSION: Ventriculomegaly and white matter disease with acute right frontal infarct. Neck MRA 03/14/18 00:00 CONCLUSION: No evidence of carotid stenosis. Percent stenosis is calculated using the diameter of the stenotic region over the diameter of the normal distal internal carotid artery Head MRA 03/14/18 07:17 There is excellent visualization of the major intracranial arteries out to the second-order branch vessels. The basilar artery is ectatic and tortuous. There is motion artifact. There does appear to be diminutive signal within an insular branch of the right middle cerebral artery. CONCLUSION: 1. Ectatic and tortuous basilar artery. 2. Diminutive flow within right middle cerebral artery insular branch. Assessment and Plan - Assessment (1) Acute encephalopathy Code(s): G93.40 - Encephalopathy, unspecified Status: Acute (2) Accelerated hypertension Code(s): I10 - Essential (primary) hypertension Status: Acute (3) Dementia Code(s): F03.90 - Unspecified dementia without behavioral disturbance Status: Acute (4) Seizure disorder Code(s): G40.909 - Epilepsy, unspecified, not intractable, without status epilepticus Status: Acute - Plan 72-year-old male sent from a half-way for possible breakthrough seizures. Patient also has accelerated hypertension. Acute encephalopathy/possible breakthrough seizure: Reported from the half-way the patient was lethargic. - He seems to be back to baseline. He is bedbound and does not interact much. -Significant dementia. Aware of self only at baseline. - Patient has been on Tegretol. Per his , he does not follow with a neurologist. - Will obtain Tegretol level. EEG negative. MRI showed right frontal infarct. MRA pending. - Consult neurology for assistance. -Neurology does not feel the medication change for seizure is needed. - Seizure precautions. Accelerated hypertension: -Resume lisinopril, amlodipine -Clonidine as needed. Dementia with occasional behavioral disturbances: - Continue Seroquel at night. - We will avoid using benzodiazepines. If agitated, may use PRN Haldol Palliative care consulted-appreciate assistance. GI prophylaxis: Stool softener PRN constipation. DVT PPx: Lovenox Discharge planning: We will discharge to SNF once cleared by neurology.
[2018-03-14] MEDS ORDERED: QUEtiapine 25 MG Tablet PO SCH (21:00)
[2018-03-15] MEDS: Sod Chloride 0.9% Inj 1,000 ML IV.CONT SCH ×2 (00:39→13:44)
[2018-03-15] MEDS ORDERED: Piperacil/Tazo 3.375 GM Premix 50 ML IV.SIG SCH (09:00)
--- NOTE | 2018-03-15 09:11 | P.PNNEU ---
Subjective Subjective Comments: sr Active Medications: Active Medications Acetaminophen (Tylenol) 650 mg PO Q4H PRN PRN Reason: Temp > 100.4 Allopurinol (Zyloprim) 200 mg PO DAILY [facility] Last Admin: 03/14/18 08:48 Dose: 200 mg Amlodipine Besylate (Norvasc) 2.5 mg PO DAILY [facility] Last Admin: 03/14/18 08:49 Dose: 2.5 mg Aspirin (Ecotrin) 81 mg PO DAILY [facility] Last Admin: 03/14/18 08:48 Dose: 81 mg Carbamazepine (Tegretol) 400 mg PO TID [facility] Last Admin: 03/14/18 18:22 Dose: 400 mg Carbidopa/Levodopa (Sinemet 25/100 Mg) 1 tab PO TID [facility] Last Admin: 03/14/18 18:22 Dose: 1 tab Clonidine HCl (Catapres) 0.1 mg PO Q6H PRN PRN Reason: SEE LABEL COMMENTS Last Admin: 03/14/18 01:59 Dose: 0.1 mg Enoxaparin Sodium (Lovenox Inj) 40 mg SQ Q24H [facility] Last Admin: 03/14/18 17:00 Dose: 40 mg Erythromycin (Shaheen-Tab) 250 mg PO Q12H [facility] Last Admin: 03/15/18 05:27 Dose: 250 mg Finasteride (Proscar) 5 mg PO DAILY [facility] Last Admin: 03/14/18 08:48 Dose: 5 mg Sodium Chloride (Ns Inj) 1,000 mls @ 70 mls/hr IV.CONT .[id number] [facility] Last Admin: 03/15/18 00:39 Dose: 70 mls/hr Piperacillin/Tazobactam/Dextrose (Zosyn 3.375 Gm Premix) 50 mls @ 100 mls/hr IV.SIG Q12H [facility] Levothyroxine Sodium (Synthroid) 25 mcg PO DAILY@0600 [facility] Last Admin: 03/15/18 05:27 Dose: 25 mcg Lisinopril (Prinivil) 10 mg PO DAILY [facility] Last Admin: 03/14/18 08:48 Dose: 10 mg Metoclopramide HCl (Reglan) 10 mg PO QID [facility] Last Admin: 03/14/18 20:24 Dose: 10 mg Ondansetron HCl (Zofran Inj) 4 mg IV.PUSH Q6H PRN PRN Reason: NAUSEA OR VOMITING Ondansetron HCl (Zofran Odt) 4 mg PO TID PRN PRN Reason: Nausea Pantoprazole Sodium (Protonix) 40 mg PO DAILY [facility] Last Admin: 03/14/18 08:48 Dose: 40 mg Patient Own Medication[ Clomipramine 25 Mg [ Anafranil]] 0 each PO [facility] Potassium Chloride (Klor-Con 10) 10 meq PO DAILY [facility] Last Admin: 03/14/18 08:49 Dose: 10 meq Quetiapine Fumarate (Seroquel) 25 mg PO HS [facility] Last Admin: 03/14/18 20:24 Dose: 25 mg Senna/Docusate Sodium (Bhavna-Colace) 1 tab PO BID PRN PRN Reason: Constipation Sertraline HCl (Zoloft) 100 mg PO DAILY [facility] Last Admin: 03/14/18 08:48 Dose: 100 mg Sodium Chloride (Ns Flush) 2 ml IV.FLUSH PRN PRN PRN Reason: FLUSH AFTER USING IV ACCESS Allergies/Adverse Reactions: Allergies Allergy/AdvReac Type Severity Reaction Status Date / Time propoxyphene Allergy Severe Hives Verified 03/12/18 00:07 *MDRO Multi-Drug Resistant AdvReac Unknown Rash Uncoded 03/12/18 00:07 Organism Physical Exam Vital signs: Vital Signs 03/14/18 15:57 03/14/18 20:00 03/15/18 00:00 Temperature 98.6 F 98.5 F 98.2 F Pulse Rate 69 80 70 Respiratory Rate 18 16 16 Blood Pressure 116/73 142/88 H 160/99 H Pulse Oximetry 99 99 93 L 03/15/18 04:00 03/15/18 05:00 03/15/18 08:00 Temperature 97.2 F L 98.6 F 97.7 F Pulse Rate 75 65 Respiratory Rate 14 16 Blood Pressure 146/91 H 182/84 H Pulse Oximetry 97 97 Intake & Output 03/14/18 03/15/18 03/15/18 18:59 06:59 18:59 Intake Total 1000 / 1000 Output Total 900 / 900 Balance -900 / -900 1000 / 1000 Intake: IV 1000 / 1000 NS Inj 1,000 ML @ 70 mls/hr IV. 1000 / 1000 CONT .[id number] [facility] Rx#:[id number] Output: Urine 900 / 900 Other: Date of Last Bowel Movement 03/13/18 Narrative: awake not saying much moves left well - Urinary Catheter Management Straight Cath placed during this visit: yes Reason for continuing: Not indwelling catheter Insertion date: 03/12/18 Insertion time: 00:46 Objective Laboratory Results - last 24 hr 03/13/18 03/14/18 08:40 09:45 Albumin (PEP) 3.63 Albumin/Globulin Ratio 1.31 L Efcwz-1-Ccnzhjenj 0.20 Qrgqe-9-Mmykwjwnp 0.80 Beta Globulins 0.64 Gamma Globulins 1.13 Triglycerides 72 Cholesterol 164 LDL Cholesterol, Calc 98 HDL Cholesterol 52.1 Cholesterol/HDL Ratio 3.14 Microbiology 03/12/18 00:25 Aerobic Blood Culture - Preliminary Blood - Peripheral No growth in 2 days Anaerobic Blood Culture - Preliminary gram positive cocci 03/12/18 00:20 Aerobic Blood Culture - Preliminary Blood - Peripheral No growth in 2 days Anaerobic Blood Culture - Preliminary No growth in 2 days Review/Management - Review/Management Plan: imp r mca cva small asa81 fu mrax2 echo and holter check ldl eeg neg cbz 10.7 sr overnoc stafrt sinemet with some parkinsonism and lower seroquel oversedated this am PT mri some nild inc vents not severe ? some tranependymal flow? 03/15/18 echo nl mrax2 really ok i did not think any sign r mca dz ldl nl sr on sinemet not much diff in exam holter pend he could dc back [place] if verified he was not on asa there then just rx with asa 325 if he was on [place]a [place] then change to plavix
[2018-03-15] MEDS: Allopurinol 100 MG Tablet PO SCH (09:23)
[2018-03-15] MEDS: Lisinopril 10 MG Tablet PO SCH (09:23)
[2018-03-15] MEDS: carBAMazepine 200 MG Tablet PO SCH ×3 (09:24→17:08)
[2018-03-15] MEDS: Finasteride 5 MG Tablet PO SCH (09:24)
[2018-03-15] MEDS: amLODIPine 5 MG Tablet PO SCH (09:24)
[2018-03-15] MEDS: Sertraline 100 MG Tablet PO SCH (09:24)
[2018-03-15] MEDS: Metoclopramide 10 MG Tablet PO SCH ×3 (09:30→17:09)
[2018-03-15 12:28] VITALS: RESP 12
--- NOTE | 2018-03-15 15:43 | P.PN ---
Subjective Interval history: Patient is seen lying in bed. He wakes easily. Denies that he is having any pain. Tells me he is cold and appreciates being covered up by the blanket. Physical Exam Vital signs: Vital Signs 03/14/18 15:57 03/14/18 20:00 03/15/18 00:00 Temperature 98.6 F 98.5 F 98.2 F Pulse Rate 69 80 70 Respiratory Rate 18 16 16 Blood Pressure 116/73 142/88 H 160/99 H Pulse Oximetry 99 99 93 L 03/15/18 04:00 03/15/18 05:00 03/15/18 08:00 Temperature 97.2 F L 98.6 F 97.7 F Pulse Rate 75 65 Respiratory Rate 14 16 Blood Pressure 146/91 H 182/84 H Pulse Oximetry 97 97 03/15/18 12:00 03/15/18 12:38 Temperature 98.7 F Pulse Rate 248 H 88 Respiratory Rate 12 Blood Pressure 174/116 H 142/74 H Pulse Oximetry 79 L Intake & Output 03/14/18 03/15/18 03/15/18 18:59 06:59 18:59 Intake Total 1000 / 1000 1050 / 1050 Output Total 900 / 900 Balance -900 / -900 1000 / 1000 1050 / 1050 Intake: IV 1000 / 1000 1050 / 1050 NS Inj 1,000 ML @ 70 mls/hr IV. 1000 / 1000 1000 / 1000 CONT .[id number] [facility] Rx#:[id number] Zosyn 3.375 GM Premix 50 ML @ 50 / 50 100 mls/hr IV.SIG Q12H [facility] Rx#: [id number] Output: Urine 900 / 900 Other: Date of Last Bowel Movement 03/13/18 03/13/18 Narrative: GENERAL: Well-nourished, well-developed adult male in no obvious distress. SKIN: Warm and dry. HEAD: Atraumatic. Normocephalic. CARDIOVASCULAR: Regular rate and rhythm. RESPIRATORY: No accessory muscle use. Clear to auscultation. Breath sounds equal bilaterally. GASTROINTESTINAL: Abdomen soft, non-tender, non-distended. Positive bowel sounds. MUSCULOSKELETAL: Extremities without clubbing, cyanosis, or edema. No obvious deformities. NEUROLOGICAL: Lethargic. Limited neurological exam as patient will not follow commands. PSYCHIATRIC: Severe dimension; poor historian. - Urinary Catheter Management Straight Cath placed during this visit: yes Reason for continuing: Not indwelling catheter Insertion date: 03/12/18 Insertion time: 00:46 Results - Labs CBC & Chem 7: 03/13/18 06:16 03/13/18 06:16 Laboratory Results - last 24 hr 03/13/18 03/13/18 08:40 08:40 Albumin (PEP) 3.63 Albumin/Globulin Ratio 1.31 L Nxasm-5-Xkkhmylsa 0.20 Vdogi-8-Cjqjxzzpv 0.80 Beta Globulins 0.64 Gamma Globulins 1.13 Methylmalonic Acid 0.14 Microbiology 03/12/18 00:20 Blood - Peripheral Aerobic Blood Culture - Preliminary No growth in 3 days 03/12/18 00:20 Blood - Peripheral Anaerobic Blood Culture - Preliminary No growth in 3 days 03/12/18 00:25 Blood - Peripheral Aerobic Blood Culture - Preliminary No growth in 3 days 03/12/18 00:25 Blood - Peripheral Anaerobic Blood Culture - Preliminary gram positive cocci Assessment and Plan - Assessment (1) Acute encephalopathy Code(s): G93.40 - Encephalopathy, unspecified Status: Acute (2) Accelerated hypertension Code(s): I10 - Essential (primary) hypertension Status: Acute (3) Dementia Code(s): F03.90 - Unspecified dementia without behavioral disturbance Status: Acute (4) Seizure disorder Code(s): G40.909 - Epilepsy, unspecified, not intractable, without status epilepticus Status: Acute - Plan 72-year-old male sent from a senior care for possible breakthrough seizures. Patient also has accelerated hypertension. Acute encephalopathy/possible breakthrough seizure: Reported from the senior care the patient was lethargic. - He seems to be back to baseline. He is bedbound and does not interact much. -Significant dementia. Aware of self only at baseline. - Patient has been on Tegretol. Per his , he does not follow with a neurologist. - Will obtain Tegretol level. EEG negative. MRI showed right frontal infarct. MRA not significant per neurology. Neurology recommends returning to SNF with new prescription for Plavix. Nursing confirmed with sniff the patient is not currently on ASA. - Consult neurology for assistance. -Neurology does not feel the medication change for seizure is needed. - Seizure precautions. Accelerated hypertension: -Resume lisinopril, amlodipine -Clonidine as needed. Dementia with occasional behavioral disturbances: - Continue Seroquel at night. - We will avoid using benzodiazepines. If agitated, may use PRN Haldol Palliative care consulted-appreciate assistance. GI prophylaxis: Stool softener PRN constipation. DVT PPx: Lovenox Discharge planning: We will discharge to SNF once cleared by neurology.
--- NOTE | 2018-03-15 15:53 | P.DS ---
Date of admission: 03/14/18 10:46 Primary care physician: UNKNOWN Attending physician on discharge: Clayton Staley Anticipated date of discharge: 03/15/18 Brief History from admission: History obtained from review of the EMR and discussion with the patient's . He is a 72-year-old male with a past medical history significant for dementia , seizure disorder, chronic kidney disease, hypertension who [facility] after he was reportedly found to be lethargic and minimally responsive. His report the care home called him and stated that he will be sent to the hospital due to seizure and uncontrolled blood pressure. Per the patient's , he has been bedbound for a long time. She noticed that he seemed to be worn out today but no other change in his baseline level of functioning.. Blood pressure was elevated at 186/138 in the emergency room. On my evaluation, the patient denies any pain. The patient himself cannot contribute much to the history. He has no complaints. 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 Reported from the care home the patient was lethargic. Returned to baseline. He is bedbound and does not interact much. Significant dementia. Aware of self only at baseline. Patient has been on Tegretol. Per his , he does not follow with a neurologist. Neurology was consulted for assistance in management. EEG negative. MRI showed right frontal infarct. MRA not significant per neurology. Neurology recommends returning to SNF with new prescription for Plavix, no ASA. Nursing confirmed with SNF the patient is not currently on ASA. - Time Spent with Patient Total time spent providing and/or coordinating discharge services: Less than 30 minutes - Quality: VTE Deep Vein Thrombosis/Pulmonary Embolism Present on Admission: No Exam Vital signs: Vital Signs 03/14/18 15:57 03/14/18 20:00 03/15/18 00:00 Temperature 98.6 F 98.5 F 98.2 F Pulse Rate 69 80 70 Respiratory Rate 18 16 16 Blood Pressure 116/73 142/88 H 160/99 H Pulse Oximetry 99 99 93 L 03/15/18 04:00 03/15/18 05:00 03/15/18 08:00 Temperature 97.2 F L 98.6 F 97.7 F Pulse Rate 75 65 Respiratory Rate 14 16 Blood Pressure 146/91 H 182/84 H Pulse Oximetry 97 97 03/15/18 12:00 03/15/18 12:38 Temperature 98.7 F Pulse Rate 248 H 88 Respiratory Rate 12 Blood Pressure 174/116 H 142/74 H Pulse Oximetry 79 L Intake & Output 03/14/18 03/15/18 03/15/18 18:59 06:59 18:59 Intake Total 1000 / 1000 1050 / 1050 Output Total 900 / 900 Balance -900 / -900 1000 / 1000 1050 / 1050 Intake: IV 1000 / 1000 1050 / 1050 NS Inj 1,000 ML @ 70 mls/hr IV. 1000 / 1000 1000 / 1000 CONT .[id number] [facility] Rx#:[id number] Zosyn 3.375 GM Premix 50 ML @ 50 / 50 100 mls/hr IV.SIG Q12H [facility] Rx#: [id number] Output: Urine 900 / 900 Other: Date of Last Bowel Movement 03/13/18 03/13/18 Narrative: GENERAL: Well-nourished, well-developed adult male in no obvious distress. SKIN: Warm and dry. HEAD: Atraumatic. Normocephalic. CARDIOVASCULAR: Regular rate and rhythm. RESPIRATORY: No accessory muscle use. Clear to auscultation. Breath sounds equal bilaterally. GASTROINTESTINAL: Abdomen soft, non-tender, non-distended. Positive bowel sounds. MUSCULOSKELETAL: Extremities without clubbing, cyanosis, or edema. No obvious deformities. NEUROLOGICAL: Lethargic. Limited neurological exam as patient will not follow commands. PSYCHIATRIC: Severe dimension; poor historian. Results Procedures completed during hospitalization: none Labs on day of discharge: Labs from last 24 hours 03/13/18 03/13/18 08:40 08:40 Albumin (PEP) 3.63 Albumin/Globulin Ratio 1.31 L Gvwnc-7-Qlgoyvkqt 0.20 Rhtub-9-Jarsyztqd 0.80 Beta Globulins 0.64 Gamma Globulins 1.13 Methylmalonic Acid 0.14 Preliminary micro results at discharge 03/12/18 00:20 Aerobic Blood Culture - Preliminary Blood - Peripheral No growth in 3 days Anaerobic Blood Culture - Preliminary No growth in 3 days 03/12/18 00:25 Aerobic Blood Culture - Preliminary Blood - Peripheral No growth in 3 days Anaerobic Blood Culture - Preliminary gram positive cocci - Impressions ITS Impressions Chest X-Ray 03/12/18 01:20 CONCLUSION: Cardiomegaly. Mild basilar atelectasis. No significant effusion. Head CT 03/12/18 04:33 CONCLUSION: 1. No acute findings compared with March 2017. . Head MRI 03/13/18 07:53 CONCLUSION: Ventriculomegaly and white matter disease with acute right frontal infarct. Neck MRA 03/14/18 00:00 CONCLUSION: No evidence of carotid stenosis. Percent stenosis is calculated using the diameter of the stenotic region over the diameter of the normal distal internal carotid artery Head MRA 03/14/18 07:17 There is excellent visualization of the major intracranial arteries out to the second-order branch vessels. The basilar artery is ectatic and tortuous. There is motion artifact. There does appear to be diminutive signal within an insular branch of the right middle cerebral artery. CONCLUSION: 1. Ectatic and tortuous basilar artery. 2. Diminutive flow within right middle cerebral artery insular branch. Discharge Plan - Discharge Disposition Patient Disposition: Discharge to SNF - Discharge Condition Condition: Stable - Discharge Order Discharge Orders: Discharge Order (Routine); Ordered 03/15/18 Ordered By: Amie Rodriguez - Physicians Team Primary Care Provider: UNKNOWN, Attending Provider: Clayton Staley Other Providers: Heron Goodwin MD ; [employer] ; Jack Crum MD
[2018-03-15 15:59] VITALS: BP 153/89; PULSE 67; TEMP 97.6; O2SAT 98
[2018-03-15] MEDS: Enoxaparin Inj 40 MG/0.4 ML Syringe SQ SCH (17:08)
--- NOTE | 2018-03-15 19:45 | P.PNPAL ---
Reason for Visit Reason for visit: a. To assist with evaluation and management of symptoms including: confusion b. To assist medical decision maker(s) with: better understanding of current medical conditions; weighing benefits/burdens of medical treatment options; making medical treatment decisions. Subjective Subjective/Interval History: Patient is asleep upon my arrival. He is noted to have a left facial droop. He awakens easily. He smiles but does not converse and is not following commands for me. No significant change overnight. Neurology has seen the patient and feels he is is safe for discharge. No significant improvement noted on Sinemet. Neurology recommended only ASA for an anti-coagulant unless the patient was already on ASA, in which case he would recommend Plavix. Patient does not appear painful at time of my visit and nursing pain assessments have shown a pain intensity of "0." Speech therapy re-evaluated patient and continues to not evidence of aspiration with thin liquids. Continues to recommend mechanical soft diet with nectar thickened fluids. Living will was received from the patient's nursing facility -- Patient has a typical [place] living will indicating he would NOT want life prolonging measures should he be found to have an end stage condition; terminal condition; or persistent vegetative state. He would also NOT want artificial nutrition/ hydration. . . Family/Friend Interactions: No family at bedside. . Advance Directives Living Will: Copy in medical record Health Care Surrogate: Copy in medical record Durable Power of Transplant Nurse Practitioner: Never completed Advance Directives Date on File: 02/12/14 (We have a health care surrogate on file. There was apparently a living will written on the same date. this is reportedly on file at the [facility]. ) Health Care Surrogate Name and Number: Jenna Fowler [phone] Documented care wishes:: [facility] from the [facility]. Patient has a typical [place] living will indicating he would NOT want life prolonging measures should he be found to have an end stage condition; terminal condition; or persistent vegetative state. He would also NOT want artificial nutrition/hydration. . Objective Vital Signs: Vital Signs 03/14/18 20:00 03/15/18 00:00 03/15/18 04:00 Temperature 98.5 F 98.2 F 97.2 F L Pulse Rate 80 70 75 Respiratory Rate 16 16 14 Blood Pressure 142/88 H 160/99 H 146/91 H Pulse Oximetry 99 93 L 97 03/15/18 05:00 03/15/18 08:00 03/15/18 12:00 Temperature 98.6 F 97.7 F 98.7 F Pulse Rate 65 248 H Respiratory Rate 16 12 Blood Pressure 182/84 H 174/116 H Pulse Oximetry 97 79 L 03/15/18 12:38 03/15/18 15:58 Temperature 97.6 F Pulse Rate 88 67 Respiratory Rate 12 Blood Pressure 142/74 H 153/89 H Pulse Oximetry 98 Intake & Output 03/15/18 03/15/18 03/16/18 06:59 18:59 06:59 Intake Total 1000 / 1000 1050 / 1050 Balance 1000 / 1000 1050 / 1050 Intake: IV 1000 / 1000 1050 / 1050 NS Inj 1,000 ML @ 70 mls/hr IV. 1000 / 1000 1000 / 1000 CONT .[id number] ROBBY Rx#:[id number] Zosyn 3.375 GM Premix 50 ML @ 50 / 50 100 mls/hr IV.SIG Q12H ROBBY Rx#: [id number] Other: Date of Last Bowel Movement 03/13/18 03/13/18 Physical Exam: CONSTITUTIONAL/GENERAL: This is an adequately nourished patient. Arouses easily to voice and exam. Tracks me, but does not respond verbally to my questions and is currently not following commands. No seizure activity noted. No evidence of distress. TUBES/LINES/DRAINS: Connell catheter. SKIN: No jaundice, rashes, or lesions. No wounds seen anteriorly. Skin temperature appropriate. Not diaphoretic. HEAD: Atraumatic. Normocephalic. EYES: Pupils equal and round . Extraocular motions intact. No scleral icterus. No injection or drainage. Fundi not examined. ENT: Turns to voice--otherwise unable to assess hearing. Nose without bleeding or purulent drainage. Throat without visible erythema, exudates, masses, or lesions. NECK: Trachea midline. Supple, nontender. CARDIOVASCULAR: Regular rate and rhythm without murmurs, gallops, or rubs. No JVD. Peripheral pulses symmetric. RESPIRATORY/CHEST: Symmetric, unlabored respirations. Clear to auscultation. Breath sounds equal bilaterally. No wheezes, rales, or rhonchi. GASTROINTESTINAL: Abdomen soft, non-tender, nondistended. No hepato-splenomegaly , or palpable masses. No guarding. Bowel sounds present. GENITOURINARY: Without palpable bladder distension. Connell catheter in place. MUSCULOSKELETAL: Extremities without clubbing, cyanosis, or edema. No joint tenderness or effusion noted. No mottling. LYMPHATICS: Not examined. NEUROLOGICAL: Sleepy, but quickly arouses to voice and exam. Does not answer my questions. Not following simple commands. Moves all extremities. Left sided facial droop noted while sleeping. PSYCHIATRIC: Difficult to assess as patient is nonverbal with me. No obvious hallucinations or psychotic symptoms. . Diagnostic Tests Laboratory: Laboratory Results - last 72 hr 03/12/18 03/13/18 03/13/18 00:25 06:16 06:16 WBC 7.0 RBC 4.46 L Hgb 12.8 L Hct 40.3 MCV 90.2 MCH 28.8 MCHC 31.9 L RDW 14.1 Plt Count 229 MPV 7.8 Neut % (Auto) 65.5 Lymph % (Auto) 24.6 [place] % (Auto) 7.8 Eos % (Auto) 1.4 Baso % (Auto) 0.7 Neut # (Auto) 4.6 Lymph # (Auto) 1.7 Livingston # (Auto) 0.5 Eos # (Auto) 0.1 Baso # (Auto) 0.0 WBC Differential . Differential Comment Auto diff final ESR Sodium 142 Potassium 3.7 Chloride 104 Carbon Dioxide 32.4 H Anion Gap 6 BUN 10 Creatinine 0.89 Estimated GFR Greater than 89 Random Glucose 83 Calcium 9.1 Total Protein (PEP) Albumin (PEP) Albumin/Globulin Ratio Ecoqg-5-Yhqtbhznc Marnr-8-Ncpyixdor Beta Globulins Gamma Globulins Triglycerides Cholesterol LDL Cholesterol, Calc HDL Cholesterol Cholesterol/HDL Ratio Vitamin B12 Methylmalonic Acid TSH Free T4 Carbamazepine 10.7 ARCHIE Screen RPR 03/13/18 03/13/18 03/13/18 06:16 08:40 08:40 WBC RBC Hgb Hct MCV MCH MCHC RDW Plt Count MPV Neut % (Auto) Lymph % (Auto) Living[place] % (Auto) Eos % (Auto) Baso % (Auto) Neut # (Auto) Lymph # (Auto) Livingston # (Auto) Eos # (Auto) Baso # (Auto) WBC Differential Differential Comment ESR 13 Sodium Potassium Chloride Carbon Dioxide Anion Gap BUN Creatinine Estimated GFR Random Glucose Calcium Total Protein (PEP) 6.4 Albumin (PEP) 3.63 Albumin/Globulin Ratio 1.31 L Daqjj-6-Gcvwhfrvr 0.20 Avlcw-9-Pzqumgaqp 0.80 Beta Globulins 0.64 Gamma Globulins 1.13 Triglycerides Cholesterol LDL Cholesterol, Calc HDL Cholesterol Cholesterol/HDL Ratio Vitamin B12 572 Methylmalonic Acid TSH 2.700 Free T4 0.99 Carbamazepine ARCHIE Screen Neg RPR Nonreactive 03/13/18 03/14/18 08:40 09:45 WBC RBC Hgb Hct MCV MCH MCHC RDW Plt Count MPV Neut % (Auto) Lymph % (Auto) [place] % (Auto) Eos % (Auto) Baso % (Auto) Neut # (Auto) Lymph # (Auto) Living[place] # (Auto) Eos # (Auto) Baso # (Auto) WBC Differential Differential Comment ESR Sodium Potassium Chloride Carbon Dioxide Anion Gap BUN Creatinine Estimated GFR Random Glucose Calcium Total Protein (PEP) Albumin (PEP) Albumin/Globulin Ratio Fwlmk-8-Tncsiyvpv Wqudf-7-Npdaiuipp Beta Globulins Gamma Globulins Triglycerides 72 Cholesterol 164 LDL Cholesterol, Calc 98 HDL Cholesterol 52.1 Cholesterol/HDL Ratio 3.14 Vitamin B12 Methylmalonic Acid 0.14 TSH Free T4 Carbamazepine ARCHIE Screen RPR Result Diagrams: 03/13/18 06:16 03/13/18 06:16 Microbiology: Microbiology 03/12/18 00:20 Aerobic Blood Culture - Preliminary Blood - Peripheral No growth in 3 days Anaerobic Blood Culture - Preliminary No growth in 3 days 03/12/18 00:25 Aerobic Blood Culture - Preliminary Blood - Peripheral No growth in 3 days Anaerobic Blood Culture - Preliminary gram positive cocci Imaging: Chest X-Ray 03/12/18 01:20 CONCLUSION: Cardiomegaly. Mild basilar atelectasis. No significant effusion. Head CT 03/12/18 04:33 CONCLUSION: 1. No acute findings compared with March 2017. . Head MRI 03/13/18 07:53 CONCLUSION: Ventriculomegaly and white matter disease with acute right frontal infarct. Neck MRA 03/14/18 00:00 CONCLUSION: No evidence of carotid stenosis. Percent stenosis is calculated using the diameter of the stenotic region over the diameter of the normal distal internal carotid artery Head MRA 03/14/18 07:17 There is excellent visualization of the major intracranial arteries out to the second-order branch vessels. The basilar artery is ectatic and tortuous. There is motion artifact. There does appear to be diminutive signal within an insular branch of the right middle cerebral artery. CONCLUSION: 1. Ectatic and tortuous basilar artery. 2. Diminutive flow within right middle cerebral artery insular branch. Assessment and Plan - Disease Oriented Problem List (1) Stroke Comment: Small, acute Right MCA stroke per MRI (2) Dementia Comment: Longstanding -- probably Alzheimer's disease or vascular dementia. - Symptom Scale (2) Depression Comment: Patient has long-standing depression attributed to his PTSD. (3) Anxiety Comment: Patient has long-standing anxiety and agitation his PTSD Pertinent Non-Medical Issues: Psychosocial: Patient is a [place]. He is an [employer] and served in combat in [place]. PTSD has played an important role in his life. 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 he has been to his -- Jenna --for about 21 years. The patient has 2 biological children from prior relationships. There is a son age 45. There is a daughter in her 20s from whom he is estranged. The patient is also close to Jenna's two sons. Spiritual: Patient, himself, is a labor relations consultant and he owned his own quaker. His son is a army machine operator hay stacker. Spiritual support will be coming from his own jainism. Legal: We have a copy of the health care surrogate designation and living will. is health care surrogate. Ethical issues impacting care: Patient is incapacitated to make his own healthcare decisions. There is no reasonable probability that he will recover capacity to do so. Important Contacts: Jenna Fowler (spouse and health care surrogate) [phone]. . Prognosis: Patient has suffered a small stroke without apparent significant neurological deficit. It certainly seems like he will survive this hospitalization and [facility] to [facility]. According to he will not be able to cooperate with physical therapy and therefore rehabilitation is unlikely to be helpful. He does have some dysphagia for thin liquids. Aspiration has become more likely. Also, according to , patient has lost about 95 pounds of weight over the last 2 years. She also reports some progressive worsening of dementia. Prognosis is unclear at this time. Much will depend upon avoiding complications of prolonged bedbound status including aspiration pneumonia, skin breakdown, urinary tract infections, etc. Also, prognosis is dependent upon preventing further stroke and seizures. Goals are currently aggressive other than resuscitation. At such time that goals would become more comfort oriented, patient would likely be a candidate for hospice care. . Code Status: No Code DNR Plan: == Code Status: Per conversation with patient's spouse (also the designated health care surrogate) the patient desires DNR status. == Decision Making: The patient is incapacitated to make his own healthcare decisions. There is no reasonable probability he will ever recover such capacity. is the designated health care surrogate. . == Goals of medical treatment: The healthcare surrogate is quite clear that patient would want all aggressive care short of attempted resuscitations. == Symptoms: * Pain: reports that patient has not had any significant prehospitalization pain syndromes. It did not appear he was on any pain medications in the [facility] setting. Given his prolonged [facility] status in the [facility] he probably has an element of musculoskeletal discomfort that may be contributing to periodic agitation. His dementia would prevent him from communication this discomfort. Normally in these cases we recommend acetaminophen 650 mg scheduled 3 times daily. * Anxiety/Depression: Patient has long-standing PTSD and reports that anxiety and depression have been a large part of this. At this point in his dementia, patient is unable to verbalize the anxiety and depression and simply calls out. Currently on sertraline and quetiapine in his [facility]. No further recommendations at this time other than scheduling the acetaminophen recommended above in case pain is contributing . * Agitation: This may also be due to the patient's underlying PTSD. As noted above, as patient is unable to verbalize how he feels, would want to make sure he is not painful. Given neurologist is now considering parkinsonism, and given some of the reported symptoms of his PTSD, one might consider Lewy body dementia. == If agitation and screaming appears more of a evening/night phenomenon, may want to consider scheduling melatonin. == Patient has had prostate surgery and has been incontinent since. I assume urine flow is good post surgery. I can't tell if he still needs his finasteride. 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 . Attestation Attestation: To help prompt me to consider important information that might be impacting today's encounter and assessment, information from prior notes written by myself or my colleagues may have been "brought forward" into today's note. My signature on this note, however, is an attestation that I personally performed the exam, history, and/or decision-making noted today, and, unless otherwise indicated, the interactions with patient, family, and staff as well as the review of records all occurred today. I also attest that the listed assessment and stated plan reflect my best clinical judgment today based on the combination of historical information, prior notes, and today's exam/ interactions. When time spent is documented, it refers only to time spent today by the signer, or if indicated, combined time spent today by collaborating physician/nurse practitioner.
== END 2018-03-15 18:45 ==
LOC: NEPC 23:43 → NEDA 23:43 → NEDH 03-12 10:46 → NEPGCP 03-12 16:58
PROVIDERS: ADMIT Hospitalist; ATTEND Hospitalist

== ENCOUNTER 2018-03-20 10:26 | Inpatient (IN) ==
[2018-03-20] MEDS ORDERED: Sod Chloride 0.9% Inj 1,000 ML IV.SIG SCH ×2 (10:45)
[2018-03-20 11:13] LABS: Hematocrit 41.1 % (39.0-51.0); Lymph # (Auto) 1.4 th/mm3 (1.0-4.8); Lymph % (Auto) 6.9 % (9.0-44.0); Mean Corpuscular Hemoglobin 29.8 pg (27.0-34.0); Mean Corpuscular Volume 87.8 fL (80.0-100.0); Mono # (Auto) 0.9 th/mm3 (0.0-0.9); Mono % (Auto) 4.6 % (0.0-8.0); Neut # (Auto) 17.5 th/mm3 (1.8-7.7); Neut % (Auto) 88.5 % (16.0-70.0); Platelet Count 258 th/mm3 (150-450); Red Blood Count 4.69 mil/mm3 (4.50-5.90); Red Cell Distribution Width 13.9 % (11.6-17.2); White Blood Count 19.8 th/mm3 (4.0-11.0)
[2018-03-20] MEDS ORDERED: Acetaminophen 650 MG Supp RECTAL ONE (11:17)
[2018-03-20 11:24] LABS: Activated Partial Thrombo Time 24.7 sec (24.3-30.1); INR 1.1 Ratio; Prothrombin Time 11.3 sec (9.8-11.6)
[2018-03-20 11:31] LABS: Creatine Kinase 457 U/L (39-308); Troponin I 0.06 ng/mL (0.02-0.05)
[2018-03-20 11:44] LABS: CKMB Percent 0.2 % (0.0-4.0)
[2018-03-20 12:19] LABS: Albumin 3.9 g/dL (3.4-5.0); Anion Gap 13 meq/L (5-15); Blood Urea Nitrogen 34 mg/dL (7-18); Calcium 10.2 mg/dL (8.5-10.1); Carbon Dioxide 27.3 meq/L (21.0-32.0); Chloride 111 meq/L (98-107); Glucose,Random 116 mg/dL (74-106); Potassium 3.8 meq/L (3.5-5.1); Sodium 151 meq/L (136-145)
[2018-03-20] MEDS ORDERED: Sod Chloride 0.9% Inj 1,000 ML IV.SIG ONE ×2 (12:19)
[2018-03-20 12:23] LABS: Alanine Aminotransferase 23 U/L (12-78); Aspartate Aminotransferase 21 U/L (15-37)
[2018-03-20 12:25] LABS: Alkaline Phosphatase 57 U/L (45-117); Total Protein 7.9 g/dL (6.4-8.2)
[2018-03-20] MEDS ORDERED: Aspirin 300 MG Supp RECTAL ONE (12:37)
[2018-03-20 13:05] LABS: Glomerular Filtration Rate 44 mL/min (>89)
[2018-03-20 14:03] LABS: Amorphous Sediment,Urine Many /hpf; Bacteria,Urine Moderate /hpf; Bilirubin,Urine Negative (Negative); Clarity,Urine Cloudy (Clear); Color,Urine Amber (Yellw/Straw); Glucose,Urine (UA) Negative (Negative); Leukocyte Esterase,Urine Negative (Negative); Mucus,Urine Many /lpf (Occasional); Nitrite,Urine Negative (Negative); Specific Gravity,Urine 1.033 (1.002-1.035); Squamous Epithelial Cell,Urine 5 /hpf (0-5)
[2018-03-20] MEDS: Dextrose 5%/NaCl 0.9% Inj 1,000 ML IV.CONT SCH (14:29)
--- NOTE | 2018-03-20 15:00 | ED ---
HPI General Chief complaint: Altered Mental Status Stated complaint: Alter mental Time Seen by Provider: 03/20/18 10:39 Source: family, EMS, RN notes reviewed and old records reviewed Mode of arrival: EMS Limitations: altered mental status History of Present Illness HPI narrative: The patient is a 72-year-old male that was discharged on the from this hospital where he was admitted for acute encephalopathy likely secondary to accelerated hypertension. He has past medical history significant for dementia, seizures, chronic kidney disease, hypertension and was [facility]. He was sent back today due to altered mental status. On arrival the patient was febrile and appeared very dry. Onset (ago): unknown Related Data Home Medications Medication Instructions Recorded Confirmed allopurinol 200 mg PO DAILY 03/12/18 03/20/18 alprazolam 1 mg PO Q8HR PRN 03/12/18 03/20/18 amlodipine 10 mg PO DAILY 03/12/18 03/20/18 carbamazepine 400 mg PO TID 03/12/18 03/20/18 clomipramine [Anafranil] 25 mg PO HS 03/12/18 03/20/18 erythromycin 250 mg PO Q12H 03/12/18 03/20/18 finasteride 5 mg PO DAILY 03/12/18 03/20/18 furosemide 20 mg PO DAILY 03/12/18 03/20/18 levothyroxine 25 mcg PO DAILY 03/12/18 03/20/18 lisinopril 10 mg PO DAILY 03/12/18 03/20/18 metoclopramide HCl 10 mg PO QID 03/12/18 03/20/18 multivitamin,qu-fzko-wnntzhwb 1 tab PO DAILY 03/12/18 03/20/18 [Thera-M] omeprazole 40 mg PO AC BREAKFAST 03/12/18 03/20/18 ondansetron 4 mg PO TID PRN 03/12/18 03/20/18 potassium chloride [Klor-Con 10] 1 tab PO DAILY 03/12/18 03/20/18 quetiapine [Seroquel] 50 mg PO HS 03/12/18 03/20/18 sennosides-docusate sodium [Senna 1 tab PO BID PRN 03/12/18 03/20/18 with Docusate Sodium] sertraline 100 mg PO DAILY 03/12/18 03/20/18 Previous Rx's Medication Instructions Recorded clopidogrel [Plavix] 75 mg PO DAILY #30 tab 03/15/18 Allergies Allergy/AdvReac Type Severity Reaction Status Date / Time propoxyphene Allergy Severe Hives Verified 03/12/18 00:07 *MDRO Multi-Drug Resistant AdvReac Unknown Rash Uncoded 03/12/18 00:07 Organism Review of Systems ROS Unobtainable ROS Unobtainable: unobtainable due to mental condition and unobtainable due to mental status FORMERLY [facility], [facility]–1983 Medical History Medical History Depression (Acute) Anxiety (Chronic) PTSD (post-traumatic stress disorder) (Chronic) Hyperlipidemia (Acute) Seizure disorder (Chronic) Caregiver unable to obtain copy of document (Acute) Hypertension (Chronic) Dementia (Chronic) Surgical History Surgical History History of prostate surgery (Acute) Family History Family History Father Family history of acute myocardial infarction Sister No problems noted. Mother Family history of breast cancer Other Family history non-contributory Family history of cancer Social History Social History Substance History: Unable to Obtain Second Hand Smoke Exposure: No Smoking Status: Cognitive impairment How Often Do You Have a Drink Containing Alcohol: Unable to Obtain Recent Out of Country Travel within the Last 8 Weeks: No Immunization History Tetanus Immunization: Unable to Assess Hx Influenza Vaccine This Season: Unable to Assess Exam Narrative Exam Narrative: GENERAL: Arousable. Confused SKIN: Focused skin assessment warm/dry. Poor turgor HEAD: Atraumatic. Normocephalic. EYES: Pupils equal and round. No scleral icterus. No injection or drainage. ENT: No nasal bleeding or discharge. Extremely dry mucous membranes NECK: Trachea midline. No JVD. CARDIOVASCULAR: Tachycardia. No murmur appreciated. RESPIRATORY: No accessory muscle use. Clear to auscultation. Breath sounds equal bilaterally. GASTROINTESTINAL: Abdomen soft, non-tender, nondistended. Hepatic and splenic margins not palpable. MUSCULOSKELETAL: No obvious deformities. No clubbing. No cyanosis. No edema. NEUROLOGICAL: Arousable alert appears to move all extremities. PSYCHIATRIC: Unable to assess Course Hospital Course: Patient febrile meetings SIRS criteria. Leukocytosis without lactic acidosis UTI was noted. He was given fluids per sepsis protocol but since he was hemodynamically stable we started 2 L in order to avoid pulmonary congestion. Tylenol was given suppository because the patient appears to have swallowing problems. His troponin was also found to be elevated at 0.06 without EKG changes suggestive of acute ischemia. He also has an elevated creatinine above baseline and a CPK. Sodium was also high at 151. Initial Documented Vital Signs Pulse Rate 105 H 03/20/18 10:35 Respiratory Rate 20 03/20/18 10:35 Pulse Oximetry 98 03/20/18 10:35 Last Documented Vital Signs Temperature 98.1 F 03/21/18 08:00 Pulse Rate 114 H 03/21/18 08:00 Respiratory Rate 20 03/21/18 08:00 Blood Pressure 137/86 03/21/18 08:00 Pulse Oximetry 96 03/21/18 08:00 Critical Care Time Critical Care Time: Yes Total Critical Care Time: 45 Attestation: Aggregate critical care time was 45 minutes. Time to perform other separately billable procedures was not included in the critical care time. My time did not include minutes spent treating any other patients simultaneously or on activities that did not directly contribute to the patient's treatment. The services I provided to this patient were to treat and/or prevent clinically significant deterioration that could result in: Permanent disability and/or I provided critical care services requiring my management, as noted below: Chart data review, documentation time, medication orders and management, vital sign assessments/reviewing monitor data, ordering and reviewing lab tests, ordering and interpreting/reviewing x-rays and diagnostic studies, care of the patient and discussion of the patient with the admitting physicians. Medical Decision Making MDM Narrative Medical decision making narrative: Patient with rhabdomyolysis and altered mental status likely secondary 2 sepsis. Hypernatremia and AK I also noted. Leukocytosis for which he received IV ceftriaxone after we will check previous urine cultures. Patient is status post a recent right MCA stroke. Eludes given per sepsis protocol. Remained hemodynamically stable. Was admitted for further treatment. Medical Screen Exam Complete: Yes Emergency Medical Condition: Yes Medical Records Medical records reviewed: Yes I reviewed the patient's medical records. Lab Data Lab results reviewed: Yes I reviewed the patient's lab results. Result diagrams: 03/21/18 04:21 03/21/18 04:21 Lab Results 03/20/18 03/20/18 03/20/18 Range/Units 10:45 10:45 10:45 WBC 19.8 H (4.0-11.0) th/mm3 RBC 4.69 (4.50-5.90) mil/mm3 Hgb 14.0 (13.0-17.0) gm/dL Hct 41.1 (39.0-51.0) % MCV 87.8 (80.0-100.0) fL MCH 29.8 (27.0-34.0) pg MCHC 34.0 (32.0-36.0) % RDW 13.9 (11.6-17.2) % Plt Count 258 (150-450) th/mm3 MPV 8.0 (7.0-11.0) fL Neut % (Auto) 88.5 H (16.0-70.0) % Lymph % (Auto) 6.9 L (9.0-44.0) % [place] % (Auto) 4.6 (0.0-8.0) % Eos % (Auto) 0.0 (0.0-4.0) % Baso % (Auto) 0.0 (0.0-2.0) % Neut # (Auto) 17.5 H (1.8-7.7) th/mm3 Lymph # (Auto) 1.4 (1.0-4.8) th/mm3 [place] # (Auto) 0.9 (0.0-0.9) th/mm3 Eos # (Auto) 0.0 (0.0-0.4) th/mm3 Baso # (Auto) 0.0 (0.0-0.2) th/mm3 WBC Differential . Differential Comment Auto diff final PT 11.3 (9.8-11.6) sec INR 1.1 Ratio APTT 24.7 (24.3-30.1) sec Sodium 151 H (136-145) meq/L Potassium 3.8 (3.5-5.1) meq/L Chloride 111 H (98-107) meq/L Carbon Dioxide 27.3 (21.0-32.0) meq/L Anion Gap 13 (5-15) meq/L BUN 34 H (7-18) mg/dL Creatinine 1.84 H (0.60-1.30) mg/dL Estimated GFR 44 L (>89) mL/min POC Glucose (68-110) mg/dl Random Glucose 116 H (74-106) mg/dL Lactic Acid (0.4-2.0) mmol/L Calcium 10.2 H (8.5-10.1) mg/dL Prot Corrected Calcium Total Bilirubin 0.4 (0.2-1.0) mg/dL AST 21 (15-37) U/L ALT 23 (12-78) U/L Alkaline Phosphatase 57 (45-117) U/L Total Creatine Kinase 457 H (39-308) U/L CK-MB (CK-2) Less than 1.0 (0.5-3.6) ng/mL CK-MB (CK-2) % 0.2 (0.0-4.0) % Troponin I 0.06 H (0.02-0.05) ng/mL Total Protein 7.9 (6.4-8.2) g/dL Albumin 3.9 (3.4-5.0) g/dL Urine Color (Yellw/Straw) Urine Clarity (Clear) Urine pH (5.0-8.5) Ur Specific [place] (1.002-1.035) Urine Protein (Neg-Trace) mg/dL Urine Glucose (UA) (Negative) mg/dL Urine Ketones (Negative) mg/dL Urine Occult Blood (Negative) Urine Nitrate (Negative) Urine Bilirubin (Negative) Urine Urobilinogen (Less than 2) mg/dL Ur Leukocyte Esterase (Negative) Urine RBC (0-3) /hpf Urine WBC (0-5) /hpf Ur Squamous Epith Cells (0-5) /hpf Amorphous Sediment (None) /hpf Urine Bacteria (None) /hpf Urine Mucus (Occasional) /lpf Micro UA Comment Ur Microscopic Review Urine Culture Comments 03/20/18 03/20/18 03/20/18 Range/Units 10:45 10:45 13:08 WBC (4.0-11.0) th/mm3 RBC (4.50-5.90) mil/mm3 Hgb (13.0-17.0) gm/dL Hct (39.0-51.0) % MCV (80.0-100.0) fL MCH (27.0-34.0) pg MCHC (32.0-36.0) % RDW (11.6-17.2) % Plt Count (150-450) th/mm3 MPV (7.0-11.0) fL Neut % (Auto) (16.0-70.0) % Lymph % (Auto) (9.0-44.0) % [place] % (Auto) (0.0-8.0) % Eos % (Auto) (0.0-4.0) % Baso % (Auto) (0.0-2.0) % Neut # (Auto) (1.8-7.7) th/mm3 Lymph # (Auto) (1.0-4.8) th/mm3 [place] # (Auto) (0.0-0.9) th/mm3 Eos # (Auto) (0.0-0.4) th/mm3 Baso # (Auto) (0.0-0.2) th/mm3 WBC Differential Differential Comment PT (9.8-11.6) sec INR Ratio APTT (24.3-30.1) sec Sodium Cancelled (136-145) meq/L Potassium Cancelled (3.5-5.1) meq/L Chloride Cancelled (98-107) meq/L Carbon Dioxide Cancelled (21.0-32.0) meq/L Anion Gap Cancelled (5-15) meq/L BUN Cancelled (7-18) mg/dL Creatinine Cancelled (0.60-1.30) mg/dL Estimated GFR Cancelled (>89) mL/min POC Glucose (68-110) mg/dl Random Glucose Cancelled (74-106) mg/dL Lactic Acid 1.3 (0.4-2.0) mmol/L Calcium Cancelled (8.5-10.1) mg/dL Prot Corrected Calcium Cancelled Total Bilirubin Cancelled (0.2-1.0) mg/dL AST Cancelled (15-37) U/L ALT Cancelled (12-78) U/L Alkaline Phosphatase Cancelled (45-117) U/L Total Creatine Kinase (39-308) U/L CK-MB (CK-2) (0.5-3.6) ng/mL CK-MB (CK-2) % (0.0-4.0) % Troponin I (0.02-0.05) ng/mL Total Protein Cancelled (6.4-8.2) g/dL Albumin Cancelled (3.4-5.0) g/dL Urine Color [place] (Yellw/Straw) Urine Clarity Cloudy H (Clear) Urine pH 5.0 (5.0-8.5) Ur Specific [place] 1.033 (1.002-1.035) Urine Protein 100 H (Neg-Trace) mg/dL Urine Glucose (UA) Negative (Negative) mg/dL Urine Ketones 20 (Negative) mg/dL Urine Occult Blood Large H (Negative) Urine Nitrate Negative (Negative) Urine Bilirubin Negative (Negative) Urine Urobilinogen Less than 2 (Less than 2) mg/dL Ur Leukocyte Esterase Negative (Negative) Urine RBC (0-3) /hpf Urine WBC (0-5) /hpf Ur Squamous Epith Cells 5 (0-5) /hpf Amorphous Sediment Many H (None) /hpf Urine Bacteria Moderate H (None) /hpf Urine Mucus Many H (Occasional) /lpf Micro UA Comment Cath-culture ind Ur Microscopic Review Not Reportable Urine Culture Comments Cath-cult indicated 03/20/18 03/21/18 03/21/18 Range/Units 21:03 04:21 04:21 WBC 18.6 H (4.0-11.0) th/mm3 RBC 4.74 (4.50-5.90) mil/mm3 Hgb 13.7 (13.0-17.0) gm/dL Hct 42.6 (39.0-51.0) % MCV 89.8 (80.0-100.0) fL MCH 28.8 (27.0-34.0) pg MCHC 32.1 (32.0-36.0) % RDW 14.6 (11.6-17.2) % Plt Count 246 (150-450) th/mm3 MPV 8.5 (7.0-11.0) fL Neut % (Auto) 87.5 H (16.0-70.0) % Lymph % (Auto) 7.6 L (9.0-44.0) % [place] % (Auto) 4.8 (0.0-8.0) % Eos % (Auto) 0.0 (0.0-4.0) % Baso % (Auto) 0.1 (0.0-2.0) % Neut # (Auto) 16.3 H (1.8-7.7) th/mm3 Lymph # (Auto) 1.4 (1.0-4.8) th/mm3 [place] # (Auto) 0.9 (0.0-0.9) th/mm3 Eos # (Auto) 0.0 (0.0-0.4) th/mm3 Baso # (Auto) 0.0 (0.0-0.2) th/mm3 WBC Differential . Differential Comment Auto diff final PT (9.8-11.6) sec INR Ratio APTT (24.3-30.1) sec Sodium 160 H* (136-145) meq/L Potassium 4.8 D (3.5-5.1) meq/L Chloride 123 H D (98-107) meq/L Carbon Dioxide 22.3 (21.0-32.0) meq/L Anion Gap 15 (5-15) meq/L BUN 36 H (7-18) mg/dL Creatinine 1.95 H (0.60-1.30) mg/dL Estimated GFR 41 L (>89) mL/min POC Glucose 100 (68-110) mg/dl Random Glucose 85 (74-106) mg/dL Lactic Acid (0.4-2.0) mmol/L Calcium 9.8 (8.5-10.1) mg/dL Prot Corrected Calcium Total Bilirubin (0.2-1.0) mg/dL AST (15-37) U/L ALT (12-78) U/L Alkaline Phosphatase (45-117) U/L Total Creatine Kinase (39-308) U/L CK-MB (CK-2) (0.5-3.6) ng/mL CK-MB (CK-2) % (0.0-4.0) % Troponin I (0.02-0.05) ng/mL Total Protein (6.4-8.2) g/dL Albumin (3.4-5.0) g/dL Urine Color (Yellw/Straw) Urine Clarity (Clear) Urine pH (5.0-8.5) Ur Specific [place] (1.002-1.035) Urine Protein (Neg-Trace) mg/dL Urine Glucose (UA) (Negative) mg/dL Urine Ketones (Negative) mg/dL Urine Occult Blood (Negative) Urine Nitrate (Negative) Urine Bilirubin (Negative) Urine Urobilinogen (Less than 2) mg/dL Ur Leukocyte Esterase (Negative) Urine RBC (0-3) /hpf Urine WBC (0-5) /hpf Ur Squamous Epith Cells (0-5) /hpf Amorphous Sediment (None) /hpf Urine Bacteria (None) /hpf Urine Mucus (Occasional) /lpf Micro UA Comment Ur Microscopic Review Urine Culture Comments 03/21/18 Range/Units 04:21 WBC (4.0-11.0) th/mm3 RBC (4.50-5.90) mil/mm3 Hgb (13.0-17.0) gm/dL Hct (39.0-51.0) % MCV (80.0-100.0) fL MCH (27.0-34.0) pg MCHC (32.0-36.0) % RDW (11.6-17.2) % Plt Count (150-450) th/mm3 MPV (7.0-11.0) fL Neut % (Auto) (16.0-70.0) % Lymph % (Auto) (9.0-44.0) % [place] % (Auto) (0.0-8.0) % Eos % (Auto) (0.0-4.0) % Baso % (Auto) (0.0-2.0) % Neut # (Auto) (1.8-7.7) th/mm3 Lymph # (Auto) (1.0-4.8) th/mm3 [place] # (Auto) (0.0-0.9) th/mm3 Eos # (Auto) (0.0-0.4) th/mm3 Baso # (Auto) (0.0-0.2) th/mm3 WBC Differential Differential Comment PT (9.8-11.6) sec INR Ratio APTT (24.3-30.1) sec Sodium (136-145) meq/L Potassium (3.5-5.1) meq/L Chloride (98-107) meq/L Carbon Dioxide (21.0-32.0) meq/L Anion Gap (5-15) meq/L BUN (7-18) mg/dL Creatinine (0.60-1.30) mg/dL Estimated GFR (>89) mL/min POC Glucose (68-110) mg/dl Random Glucose (74-106) mg/dL Lactic Acid (0.4-2.0) mmol/L Calcium (8.5-10.1) mg/dL Prot Corrected Calcium Total Bilirubin (0.2-1.0) mg/dL AST (15-37) U/L ALT (12-78) U/L Alkaline Phosphatase (45-117) U/L Total Creatine Kinase 525 H (39-308) U/L CK-MB (CK-2) 1.3 (0.5-3.6) ng/mL CK-MB (CK-2) % 0.2 (0.0-4.0) % Troponin I (0.02-0.05) ng/mL Total Protein (6.4-8.2) g/dL Albumin (3.4-5.0) g/dL Urine Color (Yellw/Straw) Urine Clarity (Clear) Urine pH (5.0-8.5) Ur Specific [place] (1.002-1.035) Urine Protein (Neg-Trace) mg/dL Urine Glucose (UA) (Negative) mg/dL Urine Ketones (Negative) mg/dL Urine Occult Blood (Negative) Urine Nitrate (Negative) Urine Bilirubin (Negative) Urine Urobilinogen (Less than 2) mg/dL Ur Leukocyte Esterase (Negative) Urine RBC (0-3) /hpf Urine WBC (0-5) /hpf Ur Squamous Epith Cells (0-5) /hpf Amorphous Sediment (None) /hpf Urine Bacteria (None) /hpf Urine Mucus (Occasional) /lpf Micro UA Comment Ur Microscopic Review Urine Culture Comments Imaging Data Radiologist's impression: Abdomen X-Ray 03/20/18 00:00 CONCLUSION: Nasogastric tube tip seen in the distal esophagus. This should be advanced. Abdomen X-Ray 03/20/18 00:00 CONCLUSION: Nasogastric tube coiled within the region of the GE junction/upper stomach. Recommend injecting contrast through the nasogastric tube. This may be within a hiatal hernia. Chest X-Ray 03/20/18 10:45 CONCLUSION: 1. No focal infiltrate or pulmonary vascular congestion. 2. Degenerative changes throughout the thoracic spine. 3. Degenerative changes involving the right shoulder joint. 4. Elevation of the right hemidiaphragm. Abdomen X-Ray 03/20/18 19:35 CONCLUSION: Nasogastric tube in the region of the GE junction/upper stomach. This should be advanced Discharge Plan Discharge Disposition Patient Disposition: 30 Still Patient Discharge Condition Condition: Serious Discharge Details Diagnosis: Bacterial UTI, End stage renal disease, Seizure disorder, Toxic metabolic encephalopathy Physicians Team ED Provider: Toby Thornton Primary Care Provider: UNKNOWN, Attending Provider: Vj Guan Other Providers: Lokesh Campa ; Yuridia Howard ; Jack Crum Discharge Interventions Interventions: ED Discharge Assessment Last Done: 03/20/18 15:32 Vital Signs Last Done: 03/20/18 15:43 Status ED Status: Left Department Discharge Information Discharge Date/Time: 03/20/18 15:59
[2018-03-20] MEDS ORDERED: Senna/Docusate Sodium 8.6/50 MG Tablet PO PRN (15:17)
[2018-03-20] MEDS ORDERED: ERYTHROMYCIN 250 MG PO SCH (15:30)
[2018-03-20] MEDS ORDERED: Metoclopramide 10 MG Tablet PO SCH (18:00)
[2018-03-20] MEDS ORDERED: CLOMIPRAMINE 25 MG PO SCH (21:00)
[2018-03-20] MEDS: Metoclopramide 10 MG Tablet PO SCH (23:12)
[2018-03-20] MEDS: QUEtiapine 25 MG Tablet PO SCH (23:13)
[2018-03-20] MEDS: carBAMazepine 200 MG Tablet PO SCH (23:13)
[2018-03-21] MEDS: Dextrose 5%/NaCl 0.9% Inj 1,000 ML IV.CONT SCH (04:44)
[2018-03-21 05:05] LABS: Baso % (Auto) 0.1 % (0.0-2.0); Hematocrit 42.6 % (39.0-51.0); Hemoglobin 13.7 gm/dL (13.0-17.0); Lymph # (Auto) 1.4 th/mm3 (1.0-4.8); Lymph % (Auto) 7.6 % (9.0-44.0); Mean Corpuscular HGB Conc 32.1 % (32.0-36.0); Mean Corpuscular Hemoglobin 28.8 pg (27.0-34.0); Mean Corpuscular Volume 89.8 fL (80.0-100.0); Mean Platelet Volume 8.5 fL (7.0-11.0); Mono # (Auto) 0.9 th/mm3 (0.0-0.9); Mono % (Auto) 4.8 % (0.0-8.0); Neut # (Auto) 16.3 th/mm3 (1.8-7.7); Neut % (Auto) 87.5 % (16.0-70.0); Platelet Count 246 th/mm3 (150-450); Red Blood Count 4.74 mil/mm3 (4.50-5.90); Red Cell Distribution Width 14.6 % (11.6-17.2); White Blood Count 18.6 th/mm3 (4.0-11.0)
[2018-03-21 06:06] LABS: Calcium 9.8 mg/dL (8.5-10.1); Carbon Dioxide 22.3 meq/L (21.0-32.0); Potassium 4.8 meq/L (3.5-5.1)
[2018-03-21] MEDS ORDERED: Dextrose 5% in Water Inj 1,000 ML IV.CONT SCH (07:00)
[2018-03-21] MEDS: Dextrose 5% in Water Inj 1,000 ML IV.CONT SCH ×2 (09:59→17:58)
[2018-03-21 10:17] LABS: CKMB Percent 0.2 % (0.0-4.0); Creatine Kinase MB 1.3 ng/mL (0.5-3.6)
[2018-03-21] MEDS: amLODIPine 5 MG Tablet PO SCH (12:40)
[2018-03-21] MEDS: Lisinopril 10 MG Tablet PO SCH (12:40)
[2018-03-21] MEDS: Metoclopramide 10 MG Tablet PO SCH ×3 (12:41→18:14)
[2018-03-21] MEDS: Allopurinol 100 MG Tablet PO SCH (12:41)
[2018-03-21] MEDS: carBAMazepine 200 MG Tablet PO SCH (12:41)
[2018-03-21] MEDS: Sertraline 100 MG Tablet PO SCH (12:41)
[2018-03-21] MEDS: Multivitamin/Minerals Therapeutic Tablet PO SCH (12:41)
[2018-03-21] MEDS: Finasteride 5 MG Tablet PO SCH (12:41)
[2018-03-21] MEDS: Piperacil/Tazo 2.25 GM Premix 50 ML IV.SIG SCH ×4 (12:57→23:46)
[2018-03-21] MEDS ORDERED: Haloperidol Inj 5 MG/ML Ampul IM PRN (13:48)
[2018-03-21 14:05] LABS: ABG Base Excess -1.1 mmol/L (-2-2); ABG PCO2 35 mmHg (38-42); ABG PO2 64 mmHg (61-120)
[2018-03-21] MEDS: Valproate Inj 500 MG in Sodium Chlor 0.9% Inj 100 ML IV.SIG SCH ×2 (15:00→23:45)
[2018-03-21] MEDS ORDERED: Heparin Drip 25,000 UNIT/250 ML BAG IV.CONT PRN (18:05)
--- NOTE | 2018-03-21 19:11 | ECG ---
Date Performed: 03/20/2018 Time Performed: 12:17:33 PTAGE: 72 years EKG: SINUS TACHYCARDIA ABNORMAL RHYTHM ECG PREVIOUS TRACING : 03/12/2018 00.08 Since the previous tracing, no significant change noted DOCTOR: Oscar Johnson Interpretating Date/Time 03/21/2018 19:10:20
[2018-03-21] MEDS: Haloperidol Inj 5 MG/ML Ampul IM PRN (19:38)
[2018-03-21] MEDS: Metoprolol Inj 5 MG/5 ML Vial IV.PUSH PRN (19:39)
[2018-03-21 21:04] LABS: Hemoglobin 13.7 gm/dL (13.0-17.0); Mean Corpuscular HGB Conc 31.8 % (32.0-36.0); Mean Corpuscular Hemoglobin 28.6 pg (27.0-34.0); Mean Corpuscular Volume 89.8 fL (80.0-100.0); Mean Platelet Volume 8.1 fL (7.0-11.0); Platelet Count 199 th/mm3 (150-450); Red Blood Count 4.78 mil/mm3 (4.50-5.90); Red Cell Distribution Width 14.4 % (11.6-17.2); White Blood Count 16.7 th/mm3 (4.0-11.0)
[2018-03-21 21:15] LABS: Activated Partial Thrombo Time 25.7 sec (24.3-30.1); INR 1.1 Ratio; Prothrombin Time 11.3 sec (9.8-11.6)
[2018-03-21 21:43] LABS: Carbon Dioxide 26.7 meq/L (21.0-32.0); Potassium 3.6 meq/L (3.5-5.1); Troponin I 0.21 ng/mL (0.02-0.05)
[2018-03-21] MEDS: QUEtiapine 25 MG Tablet PO SCH (22:28)
[2018-03-21] MEDS: MethylPREDNISolone Sod Succinate Inj 40 MG/ML Vial IV.PUSH SCH (22:31)
[2018-03-22] MEDS: Metoprolol Inj 5 MG/5 ML Vial IV.PUSH PRN (01:40)
[2018-03-22] MEDS: MethylPREDNISolone Sod Succinate Inj 40 MG/ML Vial IV.PUSH SCH ×3 (02:59→18:25)
[2018-03-22] MEDS ORDERED: Metoprolol Inj 5 MG/5 ML Vial IV.PUSH ONE (03:14)
[2018-03-22 03:52] LABS: ABG Base Excess 0.3 mmol/L (-2-2); ABG PCO2 33 mmHg (38-42); ABG PO2 134 mmHG (61-120)
[2018-03-22] MEDS ORDERED: Chlorhexidine Gluconate 2% 1 Pack (2 Cloths) TOPICAL PRN (04:00)
[2018-03-22] MEDS: Piperacil/Tazo 2.25 GM Premix 50 ML IV.SIG SCH (04:43)
[2018-03-22] MEDS: Dextrose 5% in Water Inj 1,000 ML IV.CONT SCH ×4 (04:50→20:36)
[2018-03-22] MEDS: Chlorhexidine Gluconate 2% 1 Pack (2 Cloths) TOPICAL SCH (05:24)
[2018-03-22 07:05] LABS: Baso % (Auto) 0.1 % (0.0-2.0); Hematocrit 44.9 % (39.0-51.0); Hemoglobin 14.7 gm/dL (13.0-17.0); Lymph # (Auto) 0.6 th/mm3 (1.0-4.8); Lymph % (Auto) 3.7 % (9.0-44.0); Mean Corpuscular HGB Conc 32.7 % (32.0-36.0); Mean Corpuscular Hemoglobin 29.3 pg (27.0-34.0); Mean Corpuscular Volume 89.6 fL (80.0-100.0); Mean Platelet Volume 8.9 fL (7.0-11.0); Mono # (Auto) 0.4 th/mm3 (0.0-0.9); Mono % (Auto) 2.7 % (0.0-8.0); Neut # (Auto) 15.1 th/mm3 (1.8-7.7); Neut % (Auto) 93.5 % (16.0-70.0); Platelet Count 210 th/mm3 (150-450); Red Blood Count 5.01 mil/mm3 (4.50-5.90); Red Cell Distribution Width 14.7 % (11.6-17.2); White Blood Count 16.1 th/mm3 (4.0-11.0)
[2018-03-22 07:22] LABS: Albumin 3.3 g/dL (3.4-5.0); Calcium 9.6 mg/dL (8.5-10.1); Carbon Dioxide 26.1 meq/L (21.0-32.0); Magnesium 2.6 mg/dL (1.5-2.5); Phosphorus 1.4 mg/dL (2.5-4.9); Potassium 4.2 meq/L (3.5-5.1); Total Protein 7.4 g/dL (6.4-8.2)
[2018-03-22] MEDS ORDERED: Vancomycin Inj 1 GM/200 ML PIGGYBACK IV.SIG ONE (09:25)
[2018-03-22] MEDS ORDERED: Vancomycin Consult Pharmacy OTHER PRN (09:26)
[2018-03-22] MEDS ORDERED: Sodium Phosphate Inj 30 MMOL in Sodium Chlor 0.9% Inj 250 ML IV.SIG ONE (10:00)
[2018-03-22] MEDS: amLODIPine 5 MG Tablet PO SCH (11:16)
[2018-03-22] MEDS: Finasteride 5 MG Tablet PO SCH (11:18)
[2018-03-22] MEDS: Metoclopramide 10 MG Tablet PO SCH ×3 (11:18→20:34)
[2018-03-22] MEDS: Lisinopril 10 MG Tablet PO SCH (11:18)
[2018-03-22] MEDS: Sertraline 100 MG Tablet PO SCH (11:19)
[2018-03-22] MEDS: Multivitamin/Minerals Therapeutic Tablet PO SCH (11:19)
[2018-03-22] MEDS: Valproate Inj 500 MG in Sodium Chlor 0.9% Inj 100 ML IV.SIG SCH ×2 (12:07→20:42)
[2018-03-22] MEDS: Piperacil/Tazo 4.5 GM Premix 4.5 GM/100 ML BAG IV.SIG SCH ×2 (12:09→18:25)
[2018-03-22] MEDS: Vancomycin Inj 1,500 MG in Sodium Chlor 0.9% Inj 500 ML IV.SIG SCH (12:50)
[2018-03-22] MEDS: Allopurinol 100 MG Tablet PO SCH (12:53)
[2018-03-22] MEDS: Heparin - SQ 10,000 UNITS/ML Vial SQ SCH ×2 (18:25→21:07)
[2018-03-22] MEDS: Haloperidol Inj 5 MG/ML Ampul IM PRN (21:02)
[2018-03-22] MEDS: QUEtiapine 25 MG Tablet PO SCH (21:07)
[2018-03-23] MEDS: Piperacil/Tazo 4.5 GM Premix 4.5 GM/100 ML BAG IV.SIG SCH ×5 (00:34→23:56)
[2018-03-23] MEDS: MethylPREDNISolone Sod Succinate Inj 40 MG/ML Vial IV.PUSH SCH ×3 (02:48→20:58)
[2018-03-23] MEDS: Dextrose 5% in Water Inj 1,000 ML IV.CONT SCH (02:49)
[2018-03-23] MEDS: Haloperidol Inj 5 MG/ML Ampul IM PRN (04:23)
[2018-03-23] MEDS: Chlorhexidine Gluconate 2% 1 Pack (2 Cloths) TOPICAL SCH (04:24)
[2018-03-23] MEDS: Metoprolol Inj 5 MG/5 ML Vial IV.PUSH PRN (04:51)
[2018-03-23] MEDS: Heparin - SQ 10,000 UNITS/ML Vial SQ SCH ×3 (05:55→21:03)
[2018-03-23 06:18] LABS: Baso % (Auto) 0.1 % (0.0-2.0); Eos % (Auto) 0.1 % (0.0-4.0); Hematocrit 39.2 % (39.0-51.0); Hemoglobin 12.8 gm/dL (13.0-17.0); Lymph # (Auto) 1.3 th/mm3 (1.0-4.8); Lymph % (Auto) 6.8 % (9.0-44.0); Mean Corpuscular HGB Conc 32.6 % (32.0-36.0); Mean Corpuscular Hemoglobin 29.1 pg (27.0-34.0); Mean Corpuscular Volume 89.1 fL (80.0-100.0); Mean Platelet Volume 8.9 fL (7.0-11.0); Mono # (Auto) 0.7 th/mm3 (0.0-0.9); Mono % (Auto) 3.9 % (0.0-8.0); Neut # (Auto) 16.8 th/mm3 (1.8-7.7); Neut % (Auto) 89.1 % (16.0-70.0); Platelet Count 148 th/mm3 (150-450); Red Cell Distribution Width 14.4 % (11.6-17.2); White Blood Count 18.9 th/mm3 (4.0-11.0)
[2018-03-23 08:00] LABS: Albumin 2.6 g/dL (3.4-5.0); Calcium 8.8 mg/dL (8.5-10.1); Carbon Dioxide 27.8 meq/L (21.0-32.0); Magnesium 2.4 mg/dL (1.5-2.5); Phosphorus 3.2 mg/dL (2.5-4.9); Potassium 3.2 meq/L (3.5-5.1); Total Protein 6.6 g/dL (6.4-8.2)
[2018-03-23] MEDS: amLODIPine 5 MG Tablet PO SCH (10:36)
[2018-03-23] MEDS: Lisinopril 10 MG Tablet PO SCH (10:37)
[2018-03-23] MEDS: Sertraline 100 MG Tablet PO SCH (10:38)
[2018-03-23] MEDS: Metoclopramide 10 MG Tablet PO SCH ×3 (10:38→20:58)
[2018-03-23] MEDS: Multivitamin/Minerals Therapeutic Tablet PO SCH (10:38)
[2018-03-23] MEDS: Finasteride 5 MG Tablet PO SCH (10:38)
[2018-03-23] MEDS: Allopurinol 100 MG Tablet PO SCH (10:39)
--- NOTE | 2018-03-23 13:38 | ECG ---
Date Performed: 03/21/2018 Time Performed: 12:15:07 PTAGE: 72 years EKG: SINUS TACHYCARDIA ABNORMAL RHYTHM ECG PREVIOUS TRACING : 03/20/2018 12.17 Since the previous tracing, no significant change noted DOCTOR: Senthil Mcelroy Interpretating Date/Time 03/23/2018 13:36:58
[2018-03-23] MEDS: KCL 20 mEq/Dextrose 5% Inj 1,000 ML IV.CONT SCH ×3 (14:18→23:50)
[2018-03-23] MEDS: Valproate Inj 500 MG in Sodium Chlor 0.9% Inj 100 ML IV.SIG SCH ×2 (14:20→20:58)
[2018-03-23] MEDS: Vancomycin Inj 1,500 MG in Sodium Chlor 0.9% Inj 500 ML IV.SIG SCH (14:22)
[2018-03-23] MEDS: QUEtiapine 25 MG Tablet PO SCH (21:13)
[2018-03-24] MEDS: MethylPREDNISolone Sod Succinate Inj 40 MG/ML Vial IV.PUSH SCH ×2 (02:55→10:22)
[2018-03-24] MEDS: Chlorhexidine Gluconate 2% 1 Pack (2 Cloths) TOPICAL SCH (03:02)
[2018-03-24] MEDS: KCL 20 mEq/Dextrose 5% Inj 1,000 ML IV.CONT SCH ×3 (03:49→13:06)
[2018-03-24] MEDS: Piperacil/Tazo 4.5 GM Premix 4.5 GM/100 ML BAG IV.SIG SCH ×2 (06:20→10:21)
[2018-03-24] MEDS: Heparin - SQ 10,000 UNITS/ML Vial SQ SCH (06:21)
[2018-03-24] MEDS: Valproate Inj 500 MG in Sodium Chlor 0.9% Inj 100 ML IV.SIG SCH (09:06)
[2018-03-24] MEDS: Multivitamin/Minerals Therapeutic Tablet PO SCH (09:07)
[2018-03-24] MEDS: Metoclopramide 10 MG Tablet PO SCH (09:07)
[2018-03-24] MEDS: Sertraline 100 MG Tablet PO SCH (09:07)
[2018-03-24] MEDS ORDERED: carBAMazepine 200 MG Tablet NG/OG SCH (10:00)
[2018-03-24] MEDS: Vancomycin Inj 1,500 MG in Sodium Chlor 0.9% Inj 500 ML IV.SIG SCH (13:06)
[2018-03-24] MEDS ORDERED: CLOMIPRAMINE 25 MG NG/OG SCH (21:00)
[2018-03-25] MEDS ORDERED: Pharmacy Ordered Lab Info OTHER ONE (11:45)
== END 2018-03-24 14:20 | disposition hospice, inpatient (51) ==
LOC: NEPC 10:26 → NEDA 14:16 → N05 16:04 → HIMC 03-21 19:05
PROVIDERS: ADMIT Hospitalist; ATTEND Hospitalist